=== PATIENT | male | born 1945 | race African-American/Black ===

== ENCOUNTER 2016-06-08 07:00 | Inpatient (IN) | payer OTHER, BC ==
--- NOTE | 2016-06-08 07:28 | PDOC ---
History of Present Illness - General Stated Complaint: VOMITING BLOOD History Source: Patient, Family - History of Present Illness Timing/Duration: reports: other (6 hrs or greater) Associated Symptoms: reports: nausea/vomiting. denies: confusion, fever/chills , loss of consciousness, numbness in legs/feet, ringing in ears, slurred speech , tingling in legs/feet, trouble walking, vision changes, weakness Past History - Past Medical History Allergies/Adverse Reactions: Allergies Allergy/AdvReac Type Severity Reaction Status Date / Time ramipril Allergy Severe Swelling Verified 06/08/16 07:30 Home Medications: Ambulatory Orders Amlodipine Besylate [Norvasc -] 10 mg PO DAILY 03/29/14 Calcium Acetate [Phoslo] 667 mg PO DAILY 03/29/14 Doxazosin Mesylate [Cardura -] 2 mg PO DAILY 03/29/14 Metoprolol Tartrate [Lopressor -] 50 mg PO BID 03/29/14 Anemia: No Asthma: No Cancer: No Cardiac Disorders: No CVA: No COPD: No CHF: No Dementia: No Diabetes: No Dialysis: Yes (mwf) GI Disorders: No Disorders: No HTN: Yes Hypercholesterolemia: Yes Liver Disease: No Suicide Attempt (Hx): No Seizures: No Thyroid Disease: No - Surgical History Abdominal Surgery: No Appendectomy: No Cardiac Surgery: No Cholecystectomy: No Lung Surgery: No Neurologic Surgery: No Orthopedic Surgery: No - Immunization History Immunization Up to Date: Yes - Psycho/Social/Smoking Cessation Hx Anxiety: No Suicidal Ideation: No Smoking History: Never smoked Have you smoked in the past 12 months: No If you are a former smoker, when did you quit?: 50YRS AGO Hx Alcohol Use: No Drug/Substance Use Hx: No Substance Use Type: None Review of Systems - Review of Systems Constitutional: No: Chills, Fever HEENTM: No: Blurred Vision Respiratory: No: Cough, Shortness of Breath Cardiac (ROS): No: Chest Pain, Palpitations Neurological: Yes: Dizziness. No: Headache, Numbness, Tingling, Weakness *Physical Exam - Physical Exam General Appearance: Yes: Appropriately Dressed. No: Apparent Distress HEENT: positive: Normal Voice, Other (no obvious facial droop, facial movement symmetric). negative: Scleral Icterus (R), Scleral Icterus (L) Neck: positive: Supple Respiratory/Chest: positive: Lungs Clear, Normal Breath Sounds. negative: Respiratory Distress Cardiovascular: positive: Regular Rate, S1, S2 Gastrointestinal/Abdominal: positive: Soft. negative: Tender Musculoskeletal: negative: CVA Tenderness Extremity: positive: Normal Inspection Integumentary: positive: Dry, Warm Neurologic: positive: Fully Oriented, Alert, Normal Mood/Affect, Motor Strength 5/5, Finger to Nose (no nystagmus, Gordon intact, no drift, no ataxia). negative : Facial Droop, Sensory Deficit NIH Stroke Scale - Last Known Well Date/Time & Onset Date Last Known Well: 06/07/16 (last known well 9pm last night) Time Last Known Well: 09:00 - Initial Evaluation Level of consciousness: Alert Ask patient the month and their age: Answers both correctly Ask patient to open & close eyes; make fist and let go: Obeys both correctly Best gaze (horizontal eye movement): Normal Visual field testing: No visual field loss Facial paresis (Show teeth/raise eyebrows/close eyes tight): Normal symmetrical movement Motor Function: Left Arm: Normal Motor Function: Right Arm: Normal (extends arm 90 (or 45) degrees for 10 seconds without drift Motor Function: Left Leg: Normal (extends leg 30 degrees for 5 seconds without drift) Motor Function: Right Leg: Normal (extends leg 30 degrees for 5 seconds without drift) Limb Ataxia: No ataxia Sensory(Use pinprick test arms,legs,trunk,face/side to side): Normal Best language (Describe picture, name items, read sentences): No Aphasia Dysarthria (read several words): Normal articulation Extinction and Inattention: No abnormality - Total Score NIH Stroke Scale Score: 0 Critical Care Time/MDM Note - Medical Decision Making Note: 06/08/16 07:10 70-year-old male, history of hypertension, end-stage renal disease on hemodialysis via left upper extremity fistula Sunday, Wednesdays and Fridays, last dialyzed yesterday, CVA with no residual deficits, brought in by family for sudden onset vertigo with nausea and vomiting. Patient states he was in his usual state of health when he went to bed about 9-10 pm last night, but that at 2 AM woke up feeling unwell and had several episodes of vomiting with possible blood streaks and felt the room spinning. States symptoms similar to his previous stroke. also reports that patient's mouth looks like it now "twisted to the right", which is not his baseline. Patient denies headache, visual changes, focal weakness, numbness or tingling. No altered mental status or slurred speech as per family. Pt not on any blood thinners See R/o CVA Sudden onset vertigo w/ ?facial droop this am Outside TPA window, last known normal >10 hrs ago Not on blood thinners No focal deficits on exam and no obvious facial droop on my exam Stroke protocol initiated-labs/CT/neuro c/s pending -anticipate admission 06/08/16 07:20 Case d/w Dr Mckay, if CT neg, administer asa and admit. States no need for stat MRI given no change in management. Will continue to follow 06/08/16 07:25 CT read as neg per radiology. Pt admitted to Stroke to Dr Long. Pt given zofran for active vomiting in ED and states he feels significantly better and "like myself" per pt. Discharge Disposition - Diagnosis Vertigo - Discharge Dispostion Condition at time of disposition: Fair Admit: Yes
[2016-06-08 07:31] VITALS: BMI 28.1
--- NOTE | 2016-06-08 07:35 | PDOC ---
*Physical Exam - Vital Signs Last Vital Signs Temp Pulse Resp BP Pulse Ox 97.3 F L 79 20 97/65 99 06/08/16 07:08 06/08/16 07:08 06/08/16 07:08 06/08/16 07:08 06/08/16 07:08 <aMnjinder Rodriguez - Last Filed: 06/08/16 12:00> - Vital Signs Last Vital Signs Temp Pulse Resp BP Pulse Ox 97.3 F L 79 20 97/65 99 06/08/16 07:08 06/08/16 07:08 06/08/16 07:08 06/08/16 07:08 06/08/16 07:08 - Physical Exam Comments: 06/08/16 07:34 MIDLEVEL NOTE Pt seen immediately on arrival Pt seen by Midlevel Provider under my direct supervision. Pt interviewed and examined. Ancillary studies reviewed. I agree with plan as outlined by Midlevel Provider. 70-year-old male, history of hypertension, end-stage renal disease on hemodialysis via left upper extremity fistula Sunday, Wednesdays and Fridays, last dialyzed yesterday, CVA with no residual deficits, brought in by family for sudden onset vertigo with nausea and vomiting. and mouth "twisted to R" at 2am Patient seen immediately on arrival History of old CVA w/o residual sx Stat CT scan done Patient is not a TPA candidate-patient awakened with the symptoms-time of onset unknown Case discussed with neurology MRI ordered NIH stroke scale 0 at this time 06/08/16 07:57 EKG Normal sinus rhythm with first degree AV block Left axis deviation QRS duration 118 ms QTC prolongation with a QTC of 505 There are lateral T-wave inversions in 1, L, V5, and V6 Other nonspecific ST-T waves are noted When compared to the EKG of 03/29/14 Today's EKG is similar to the prior EKG Of note, on today's EKG the T waves are upright, and on the old EKG the T waves are inverted in 203 and F The changes in 1 and L V5 and V6 were also present on the prior EKG and today's EKG 06/08/16 08:50 CT scan head No evidence of acute intracranial hemorrhage, edema, midline shift, mass effect , or skull fracture No CT evidence of acute territorial infarction Moderately severe supratentorial coalescent periventricular centrum semiovale chronic white matter microangiopathic ischemic changes and gliosis Chest x-ray-NAD Labwork reviewed Laboratory Results - last 24 hr 06/08/16 06/08/16 06/08/16 07:28 07:30 07:30 WBC 9.6 D RBC 3.60 L D Hgb 11.9 D Hct 36.4 D MCV 101.1 H MCHC 32.7 RDW 14.1 D Plt Count 172 MPV 8.5 Neutrophils % 82.5 D Lymphocytes % 7.8 L D Monocytes % 8.0 Eosinophils % 1.1 D Basophils % 0.6 INR 1.08 Sodium Potassium Chloride Carbon Dioxide Anion Gap BUN Creat Clearance w eGFR POC Glucometer 142.50325 Random Glucose Calcium Total Bilirubin AST ALT Alkaline Phosphatase Creatine Kinase CK-MB (CK-2) Rel Index Troponin I Total Protein Albumin Triglycerides Cholesterol Total LDL Cholesterol HDL Cholesterol Blood Type Antibody Screen 06/08/16 06/08/16 06/08/16 07:30 07:30 07:30 WBC RBC Hgb Hct MCV MCHC RDW Plt Count MPV Neutrophils % Lymphocytes % Monocytes % Eosinophils % Basophils % INR Sodium 141 Potassium 3.4 L Chloride 105 Carbon Dioxide 23 Anion Gap 13 BUN 37 H Creat Clearance w eGFR 4.45 POC Glucometer Random Glucose 136 H Calcium 7.3 L Total Bilirubin 0.3 AST 30 D ALT 19 D Alkaline Phosphatase 61 Creatine Kinase 421 H D CK-MB (CK-2) Rel Index Cancelled Troponin I 0.02 Total Protein 8.0 D Albumin 4.2 D Triglycerides 93 D Cholesterol 199 Total LDL Cholesterol 135 H D HDL Cholesterol 44 Blood Type AB POSITIVE Antibody Screen Negative 06/08/16 08:53 case d/w hospitalist - will admit Neurology at bedside For MRI <Autumn Moreno - Last Filed: 06/09/16 15:58> ED Treatment Course - LABORATORY CBC & Chemistry Diagram: 06/08/16 07:30 06/08/16 07:30 - ADDITIONAL ORDERS Additional order review: Laboratory Results 06/08/16 06/08/16 06/08/16 07:30 07:30 07:30 INR Sodium 141 Potassium 3.4 L Chloride 105 Carbon Dioxide 23 Anion Gap 13 BUN 37 H Creatinine 11.5 H* D Creat Clearance w eGFR 4.41 POC Glucometer Random Glucose 136 H Calcium 7.3 L Total Bilirubin 0.3 AST 30 D ALT 19 D Alkaline Phosphatase 61 Creatine Kinase 421 H D Creatine Kinase Index 0.6 CK-MB (CK-2) 2.506 CK-MB (CK-2) Rel Index Cancelled Troponin I 0.02 Total Protein 8.0 D Albumin 4.2 D Triglycerides 93 D Cholesterol 199 Total LDL Cholesterol 135 H D HDL Cholesterol 44 Blood Type AB POSITIVE Antibody Screen Negative 06/08/16 06/08/16 07:30 07:28 INR 1.08 Sodium Potassium Chloride Carbon Dioxide Anion Gap BUN Creatinine Creat Clearance w eGFR POC Glucometer 142.97570 Random Glucose Calcium Total Bilirubin AST ALT Alkaline Phosphatase Creatine Kinase Creatine Kinase Index CK-MB (CK-2) CK-MB (CK-2) Rel Index Troponin I Total Protein Albumin Triglycerides Cholesterol Total LDL Cholesterol HDL Cholesterol Blood Type Antibody Screen 06/08/16 06/08/16 07:30 07:28 RBC 3.60 L D MCV 101.1 H MCHC 32.7 RDW 14.1 D MPV 8.5 Neutrophils % 82.5 D Lymphocytes % 7.8 L D Monocytes % 8.0 Eosinophils % 1.1 D Basophils % 0.6 POC Glucometer 142.51247 - Medications Given in the ED: ED Medications Discontinued Medications Generic Name Dose Route Start Last Admin Trade Name Freq PRN Reason Stop Dose Admin Aspirin 324 mg 06/08/16 07:36 06/08/16 07:52 Asa - PO 06/08/16 07:37 324 mg ONCE ONE Administration Meclizine HCl 25 mg 06/08/16 07:52 06/08/16 08:26 Antivert - PO 06/08/16 07:53 25 mg ONCE ONE Administration Ondansetron HCl 4 mg 06/08/16 07:52 06/08/16 07:57 Zofran Injection IVPUSH 06/08/16 07:53 4 mg ONCE ONE Administration <Manjinder Rodriguez - Last Filed: 06/08/16 12:00> - LABORATORY CBC & Chemistry Diagram: 06/08/16 07:30 06/08/16 07:30 <Autumn Moreno - Last Filed: 06/09/16 15:58> *DC/Admit/Observation/Transfer <Manjinder Rodriguez - Last Filed: 06/08/16 12:00> <Autumn Moreno - Last Filed: 06/09/16 15:58> Diagnosis at time of Disposition: Vertigo - Discharge Dispostion Condition at time of disposition: Improved - Prescriptions
[2016-06-08] MEDS ORDERED: ASPIRIN 81 MG CHEWABLE TABLETS PO ONE (07:36)
[2016-06-08] MEDS ORDERED: ASPIRIN 325 MG TABLET ONE (07:46)
[2016-06-08] MEDS ORDERED: MECLIZINE HCL 25 MG TABLET (FP) PO ONE (07:52)
[2016-06-08] MEDS ORDERED: ONDANSETRON 4 MG/2 ML VIAL IVPUSH ONE (07:52)
[2016-06-08] MEDS: SODIUM CHLORIDE 1,000 ML IV SCH (07:52)
[2016-06-08] MEDS ORDERED: ONDANSETRON 4 MG/2 ML VIAL ONE (07:53)
[2016-06-08 07:54] LABS: BASOPHIL 0.6 % (0-2.0); EOSINOPHIL 1.1 % (0-4.5); MCH 33.1 pg (25.7-33.7); MCHC 32.7 g/dl (32.0-35.9); MEAN CELL VOLUME 101.1 fl (80-96); MEAN PLT VOLUME 8.5 fl (7.5-11.1); NEUTROPHILS 82.5 % (42.8-82.8); PLATELET COUNT 172 K/MM3 (134-434); RDW 14.1 % (11.9-15.9); WHITE BLOOD COUNT 9.6 K/mm3 (4.0-10.0)
[2016-06-08 08:00] LABS: INR 1.08 (0.82-1.09); PROTHROMBIN TIME (PATIENT) 11.9 SEC (9.98-11.88)
[2016-06-08 08:21] LABS: ALBUMIN 4.2 g/dl (3.4-5.0); BILIRUBIN,TOTAL 0.3 mg/dL (0.2-1.0); CALCIUM 7.3 mg/dL (8.5-10.1)
[2016-06-08] MEDS ORDERED: MECLIZINE HCL 25 MG TABLET (FP) ONE (08:26)
[2016-06-08 08:27] LABS: TROPONIN I 0.02 ng/ml (0.00-0.05)
[2016-06-08 09:43] LABS: COCKROFT - GAULT 6.48; CREATININE 11.5 mg/dL (0.7-1.3)
[2016-06-08] MEDS ORDERED: PROMETHAZINE HCL 25 MG/1 ML VIAL IM PRN (09:59)
[2016-06-08] MEDS: PANTOPRAZOLE SODIUM 100 ML IVPB SCH (10:37)
[2016-06-08] MEDS ORDERED: PANTOPRAZOLE SODIUM 100 ML IVPB ONE (10:38)
--- NOTE | 2016-06-08 13:13 | CONSULT ---
Consult - text type - Consultation Consultation Note: Neurology History of Present Illness 70-year-old male, history of hypertension, end-stage renal disease on hemodialysis via left upper extremity fistula Sunday, Wednesdays and Fridays, last dialyzed yesterday, CVA with no residual deficits, brought in by family for sudden onset vertigo with nausea and vomiting. Patient states he was in his usual state of health when he went to bed about 9-10 pm last night, but that at 2 AM woke up feeling unwell and had several episodes of vomiting with possible blood streaks and felt the room spinning. States symptoms similar to his previous stroke. Juan Manuel yan was called but patient out of TPA window. CT head without acute changes. Spoke with PA and agreed for admission and CVA workup. Past History - Past Medical History Allergies/Adverse Reactions: Allergies Allergy/AdvReac Type Severity Reaction Status Date / Time ramipril Allergy Severe Swelling Verified 06/08/16 07:30 Home Medications: Ambulatory Orders Amlodipine Besylate [Norvasc -] 10 mg PO DAILY 03/29/14 Calcium Acetate [Phoslo] 667 mg PO DAILY 03/29/14 Doxazosin Mesylate [Cardura -] 2 mg PO DAILY 03/29/14 Metoprolol Tartrate [Lopressor -] 50 mg PO BID 03/29/14 Anemia: No Asthma: No Cancer: No Cardiac Disorders: No CVA: No COPD: No CHF: No Dementia: No Diabetes: No Dialysis: Yes (mwf) GI Disorders: No Disorders: No HTN: Yes Hypercholesterolemia: Yes Liver Disease: No Suicide Attempt (Hx): No Seizures: No Thyroid Disease: No - Surgical History Abdominal Surgery: No Appendectomy: No Cardiac Surgery: No Cholecystectomy: No Lung Surgery: No Neurologic Surgery: No Orthopedic Surgery: No - Immunization History Immunization Up to Date: Yes - Psycho/Social/Smoking Cessation Hx Anxiety: No Suicidal Ideation: No Smoking History: Never smoked Have you smoked in the past 12 months: No If you are a former smoker, when did you quit?: 50YRS AGO Hx Alcohol Use: No Drug/Substance Use Hx: No Substance Use Type: None Review of Systems - Review of Systems Constitutional: No: Chills, Fever HEENTM: No: Blurred Vision Respiratory: No: Cough, Shortness of Breath Cardiac (ROS): No: Chest Pain, Palpitations Neurological: Yes: Dizziness. No: Headache, Numbness, Tingling, Weakness *Physical Exam - Physical Exam Vital Signs Temperature 97.3 F L 06/08/16 07:08 Pulse Rate 79 06/08/16 07:08 Respiratory Rate 20 06/08/16 07:08 Blood Pressure 97/65 06/08/16 07:08 O2 Sat by Pulse Oximetry (%) 99 06/08/16 07:08 General Appearance: Yes: Appropriately Dressed. No: Apparent Distress HEENT: positive: Normal Voice, Other (no obvious facial droop, facial movement symmetric). negative: Scleral Icterus (R), Scleral Icterus (L) Neck: positive: Supple Respiratory/Chest: positive: Lungs Clear, Normal Breath Sounds. negative: Respiratory Distress Cardiovascular: positive: Regular Rate, S1, S2 Gastrointestinal/Abdominal: positive: Soft. negative: Tender Musculoskeletal: negative: CVA Tenderness Extremity: positive: Normal Inspection Integumentary: positive: Dry, Warm Neurologic: positive: Fully Oriented, Alert, Normal Mood/Affect, Normal speech, no aphasia, ?facial droop, Strength intact 5/5, Finger to Nose (no nystagmus, Gordon intact, no drift, no ataxia). Sensory normal CBCD WBC 9.6 K/mm3 (4.0-10.0) D 06/08/16 07:30 RBC 3.60 M/mm3 (4.00-5.60) L D 06/08/16 07:30 Hgb 11.9 GM/dL (11.7-16.9) D 06/08/16 07:30 Hct 36.4 % (35.4-49) D 06/08/16 07:30 MCV 101.1 fl (80-96) H 06/08/16 07:30 MCHC 32.7 g/dl (32.0-35.9) 06/08/16 07:30 RDW 14.1 % (11.9-15.9) D 06/08/16 07:30 Plt Count 172 K/MM3 (134-434) 06/08/16 07:30 MPV 8.5 fl (7.5-11.1) 06/08/16 07:30 CMP Sodium 141 mmol/L (136-145) 06/08/16 07:30 Potassium 3.4 mmol/L (3.5-5.1) L 06/08/16 07:30 Chloride 105 mmol/L (98-107) 06/08/16 07:30 Carbon Dioxide 23 mmol/L (21-32) 06/08/16 07:30 Anion Gap 13 (8-16) 06/08/16 07:30 BUN 37 mg/dL (7-18) H 06/08/16 07:30 Creatinine 11.5 mg/dL (0.7-1.3) H* D 06/08/16 07:30 Creat Clearance w eGFR 4.41 (>60) 06/08/16 07:30 Calcium 7.3 mg/dL (8.5-10.1) L 06/08/16 07:30 Total Bilirubin 0.3 mg/dL (0.2-1.0) 06/08/16 07:30 AST 30 U/L (15-37) D 06/08/16 07:30 ALT 19 U/L (12-78) D 06/08/16 07:30 Alkaline Phosphatase 61 U/L (45-117) 06/08/16 07:30 Total Protein 8.0 g/dl (6.4-8.2) D 06/08/16 07:30 Albumin 4.2 g/dl (3.4-5.0) D 06/08/16 07:30 Plan: 70-year-old male, history of hypertension, end-stage renal disease on hemodialysis via left upper extremity fistula Sunday, Wednesdays and Fridays, last dialyzed yesterday, CVA with no residual deficits, brought in by family for sudden onset vertigo with nausea and vomiting. Patient states he was in his usual state of health when he went to bed about 9-10 pm last night, but that at 2 AM woke up feeling unwell and had several episodes of vomiting with possible blood streaks and felt the room spinning. States symptoms similar to his previous stroke. Code yuriy was called but patient out of TPA window. CT head without acute changes. Spoke with PA and agreed for admission and CVA workup. May also be just peripheral vertigo episode. Lipid profile MRI brain CD Echo Antiplatelet therapy (if no bleeding occuring) PT, vestibular therapy Fall precaution Meclezine as needed Continue HD as per renal BP control, can allow up to 160/90 for now DVT ppx
--- NOTE | 2016-06-08 13:25 | EKG ---
Test Reason : Blood Pressure : / mmHG Vent. Rate : 080 BPM Atrial Rate : 080 BPM P-R Int : 222 ms QRS Dur : 118 ms QT Int : 438 ms P-R-T Axes : 029 -45 094 degrees QTc Int : 505 ms SINUS RHYTHM WITH 1ST DEGREE A-V BLOCK LEFT ANTERIOR FASCICULAR BLOCK LEFT VENTRICULAR HYPERTROPHY WITH QRS WIDENING T WAVE ABNORMALITY, CONSIDER LATERAL ISCHEMIA PROLONGED QT ABNORMAL ECG WHEN COMPARED WITH ECG OF 29-MAR-2014 16:01, LEFT ANTERIOR FASCICULAR BLOCK IS NOW PRESENT NONSPECIFIC T WAVE ABNORMALITY NO LONGER EVIDENT IN INFERIOR LEADS T WAVE INVERSION LESS EVIDENT IN ANTEROLATERAL LEADS Confirmed by JORDIN ESCOBAR, THEODORA ([id number]) on 06/08/2016 1:25:24 PM Referred By: Confirmed By:THEODORA BRENNER MD
--- NOTE | 2016-06-08 13:45 | CONSULT ---
Consult - text type - Consultation Consultation Note: Renal Consult for ESRD on HD 70 year old Gentleman with PMhx of ESRD on HD x 17 years, CAD, CVA presented with N/V and facial droop and admitted for r/o CVA. seen and examined at the bedside Medical management as per Neurology CT w/o signs of acute infarct MRI pending for dialysis tomorrow. Full consult to follow Gerard Trejo DO
[2016-06-08 13:55] LABS: PHOSPHOROUS 3.9 mg/dL (2.5-4.9)
--- NOTE | 2016-06-08 15:43 | CONSULT ---
Admitting History and Physical - Primary Care Physician PCP: Ze Long - Admission History of Present Illness: Per EMR: "History of Present Illness 70-year-old male, history of hypertension, end-stage renal disease on hemodialysis via left upper extremity fistula Sunday, Wednesdays and Fridays, last dialyzed yesterday, CVA with no residual deficits, brought in by family for sudden onset vertigo with nausea and vomiting. Patient states he was in his usual state of health when he went to bed about 9-10 pm last night, but that at 2 AM woke up feeling unwell and had several episodes of vomiting with possible blood streaks and felt the room spinning. States symptoms similar to his previous stroke. Code yuriy was called but patient out of TPA window" History Source: Patient, Medical Record Limitations to Obtaining History: No Limitations - Past Medical History Cardiovascular: Yes: HTN, Hyperlipdemia Renal/: Yes: Renal Failure, Hemodialysis Heme/Onc: Yes: Anemia - Past Surgical History Past Surgical History: Yes: AV Fistula/Graft (to R wrist, and old graft to L arm ) - Smoking History Smoking history: Never smoked Have you smoked in the past 12 months: No If you are a former smoker, when did you quit?: 50YRS AGO - Alcohol/Substance Use Hx Alcohol Use: No - Social History ADL: Independent 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, 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 [place] History of Recent Travel: No History - Admission Reason For Visit: VERTIGO - Diagnostics X-ray: Report Reviewed CT Scan: Report Reviewed - General Mental Status: Alert and Oriented, Awake and Alert, Able to Follow Commands Attention: Intact Ability to Follow Directions: Excellent Head/Neck Control: WFL - Hearing Hearing: Normal Speech Evaluation - Communication Primary Language: SWEDISH Communication: Yes: Within Normal Limits Oral Expression Ability: Yes: No Impairment - Speech Production Able to Make Needs Known: Yes: WNL Intelligibility: Yes: WNL - Speech Characteristics Voice Loudness: Normal Voice Pitch: Yes: Normal Voice Phonatory-based Quality: Yes: Normal Speech Pattern: Normal Speech Clarity: < 100% Nasal Resonance: Normal Articulation: Yes: Precise Rate of Speech: Intact - Language/Auditory Comprehension Follows: Yes: Complex Commands - Language/Verbal Expression Able to Respond to Simple Queries: Yes: WNL Able to Communicate Wants and Needs: Yes: WNL Functional Communication Status: Yes: WNL Attention: Yes: Intact - Memory/Perception long term care pharmacist Memory: Yes: WNL Short Term Memory: Yes: WNL - Swallow Evaluation/Bedside Assessment Current Nutritional Intake: NPO Oral Secretions: Yes: WFL Dentition: Yes: Adequate Facial Symmetry at Rest: Symmetrical Facial Symmetry on Retraction: Symmetrical Facial Movement: Controlled Sensation: Normal Against Resistance Opening: Normal Against Resistance Closing: Normal Pucker Lips: Normal Smile: Normal Lingual Movement: Deviates Left Lingual Speed of Movement: Normal Lingual Movement Strgth Against Opposition: Normal Lingual Movement Characteristics: Normal Velopharyngeal Movement: Normal Laryngeal Elevation: WFL Laryngeal Movement: Able to Palpate Rate of Intake: WFL Bolus Size: WFL Labial Seal: WFL Chewing: WFL Oral Prep Time: WFL A-P Transit: WFL Pocketing: None Timing of Swallow: WFL Coughing/Throat Clear: No Change in Voice: No Recommendations - Speech Evaluation, Impression/Plan Impression: Tongue deviates to left upon protrusion. Lips are bright pink, reported baseline, with oral mucosa membrane more pinkish brown. Speech strong. Cognition/language/swallowing intact - Dysphagia Impressions/Plan Dysphagia Impressions: No Impairment *Silent aspiration: cannot be R/O at bedside - Recommendations Diet Consistency: Regular Medication Administration: Whole with water Liquids: Thin Liquids
--- NOTE | 2016-06-08 15:44 | HP ---
CHIEF COMPLAINT: dizziness; cough blood PCP: Dr. Ambrose HISTORY OF PRESENT ILLNESS: 70 year old male with a PMHx of CVA (no residual defects), ESRD on HD (MWF), HTN : presentot he emergency room due to feeling of dizziness. Patient states he was in bed arounf 2 am he started to feel the room spinning, he got up and walked to bathroom, he felt nauseated, started to cough and vomit, he noticed blood in sputum, amount unknown. noticed that he had right sided facial drooping and this was resolved upon admission. Patient also admits to he two episodes of watery diarrhea after the episodes. Patient denies LOC, headache, chest pain, shortness of breath, abdominal pain, leg swelling. HE does state that his symptoms/feeling were like when he had the previous stroke. In ER patient was normotensive, head CT negative for hemorrhagic stroke. Out of TPA window. ER course was notable for: (1)HEAD CT negative (2)ASA given (3) Recent Travel: no PAST MEDICAL HISTORY: HTN, CVA, ESRD PAST SURGICAL HISTORY: Social History: Smoking:no Alcohol:no Drugs: no Family History: Allergies ramipril Allergy (Severe, Verified 06/08/16 07:30) Swelling HOME MEDICATIONS: Home Medications Medication Instructions Recorded Amlodipine Besylate [Norvasc -] 10 mg PO DAILY 03/29/14 Calcium Acetate [Phoslo] 667 mg PO DAILY 03/29/14 Doxazosin Mesylate [Cardura -] 2 mg PO DAILY 03/29/14 Metoprolol Tartrate [Lopressor -] 50 mg PO BID 03/29/14 REVIEW OF SYSTEMS CONSTITUTIONAL: Absent: fever, chills, diaphoresis, generalized weakness, malaise, loss of appetite, weight change HEENT: Absent: rhinorrhea, nasal congestion, throat pain, throat swelling, difficulty swallowing, mouth swelling, ear pain, eye pain, visual changes CARDIOVASCULAR: Absent: chest pain, syncope, palpitations, irregular heart rate, lightheadedness , peripheral edema RESPIRATORY: Positive: cough, hemoptysis Absent: shortness of breath, dyspnea with exertion, orthopnea, wheezing, stridor , GASTROINTESTINAL: Positive: nausea, vomiting, diarrhea Absent: abdominal pain, abdominal distension, , constipation, melena, hematochezia GENITOURINARY: Absent: dysuria, frequency, urgency, hesitancy, hematuria, flank pain, genital pain MUSCULOSKELETAL: Absent: myalgia, arthralgia, joint swelling, back pain, neck pain SKIN: Absent: rash, itching, pallor HEMATOLOGIC/IMMUNOLOGIC: Absent: easy bleeding, easy bruising, lymphadenopathy, frequent infections ENDOCRINE: Absent: unexplained weight gain, unexplained weight loss, heat intolerance, cold intolerance NEUROLOGIC: POsitive:dizziness, unsteady gait, rigth facial droop Absent: headache, focal weakness or paresthesias, seizure, mental status changes , bladder or bowel incontinence PSYCHIATRIC: Absent: anxiety, depression, suicidal or homicidal ideation, hallucinations. PHYSICAL EXAMINATION Vital Signs - 24 hr 06/08/16 13:34 Pulse Rate [ 71 Apical] Respiratory 18 Rate Blood Pressure 149/90 [Arm] O2 Sat by Pulse 100 Oximetry (%) GENERAL: Awake, alert, and fully oriented, in no acute distress. HEAD: Normal with no signs of trauma. FACE: lip and tongue swelling EYES: Pupils equal, round and reactive to light, extraocular movements intact, sclera anicteric, conjunctiva clear. No lid lag. EARS, NOSE, THROAT: Ears normal, nares patent, oropharynx clear without exudates. Moist mucous membranes. NECK: Normal range of motion, supple without lymphadenopathy, JVD, or masses. LUNGS: Breath sounds equal, clear to auscultation bilaterally. No wheezes, and no crackles. No accessory muscle use. HEART: Regular rate and rhythm, normal S1 and S2 without murmur, rub or gallop. ABDOMEN: Soft, nontender, not distended, normoactive bowel sounds, no guarding, no rebound, no masses. No hepatomegaly or splenomegaly. MUSCULOSKELETAL: Normal range of motion at all joints. No bony deformities or tenderness. No CVA tenderness. UPPER EXTREMITIES: 2+ pulses, warm, well-perfused. No cyanosis. No clubbing. No peripheral edema. Right forearm fistula LOWER EXTREMITIES: 2+ pulses, warm, well-perfused. No calf tenderness. No peripheral edema. NEUROLOGICAL: Cranial nerves II-XII intact. Normal speech. Normal gait. Tongue deviation to the right; sensation in tact; full motor strength; all extremities 5/5 PSYCHIATRIC: Cooperative. Good eye contact. Appropriate mood and affect. SKIN: Warm, dry, normal turgor, no rashes or lesions noted, normal capillary refill. Laboratory Results - last 24 hr 06/08/16 13:35 Phosphorus Cancelled Magnesium Cancelled ASSESSMENT/PLAN: 70 year old male with a PMHx of CVA; with no residual deficits, ESRD in HD, HTN , presents with right tongue deviation and facial droop s/p episode of nasuea and vomiting, and vertigo at home; admitted for TIA. Head CT negative; out of tpa window. #rule out CVA vs TIA vs vertigo -asa, lipid profile, tsh, -stroke head CT negative for hemorrhagic stroke , mass, epidural/subdural hematoma; -MRA/MRI pending -echo , carotid doppler -swallow eval -physical therapy -resume po meds once cleared -risk precautions -bb, asa, statin #vertigo -meclizine prn -phenergan for n/v/; due to prolonged qt #hemoptysis most likely due retching during vomiting -hemoglobin stable -no other new events #ESRD: -HD MWF -phoslo -Renal consulted #hyperlipidemia: -atorvastatin 40mg po qd #hypertension: -metoprolol 50mg bid -norvasc 10mg po daily FEN: Fluids: na Electrolytes: wnl Diet; cardiac after pass swallow eval VTE prophylaxis; scs; asa; consider imaging negative Disposition: preventative stroke precautions Problem List - Problem (1) ESRD on hemodialysis Code(s): N18.6 - END STAGE RENAL DISEASE Z99.2 - DEPENDENCE ON RENAL DIALYSIS (2) Vertigo Code(s): R42 - DIZZINESS AND GIDDINESS (3) Dialysis AV fistula malfunction Code(s): T82.590A - [facility] COMPL OF SURGICALLY CREATED ARTERIOVENOUS FISTULA, INIT (4) HTN (hypertension) Code(s): I10 - ESSENTIAL (PRIMARY) HYPERTENSION (5) TIA (transient ischemic attack) Code(s): G45.9 - TRANSIENT CEREBRAL ISCHEMIC ATTACK, UNSPECIFIED Visit type - Emergency Visit Emergency Visit: Yes ED Registration Date: 06/08/16 Care time: The patient presented to the Emergency Department on the above date and was hospitalized for further evaluation of their emergent condition. - New Patient This patient is new to me today: Yes Date on this admission: 06/08/16 - Critical Care Critical Care patient: No
--- NOTE | 2016-06-08 17:37 | PN ---
Teaching Attending Note Name of Resident: Flakita Gann ATTENDING PHYSICIAN STATEMENT I saw and evaluated the patient. I reviewed the resident's note and discussed the case with the resident. I agree with the resident's findings and plan as documented. SUBJECTIVE: OBJECTIVE: Vital Signs Period Temp Pulse Resp BP Sys/Mckinley Pulse Ox Last 24 Hr 97.2 F-97.3 F 71-79 18-20 97-156/65-101 99-100 ASSESSMENT AND PLAN:
[2016-06-08] MEDS ORDERED: METOCLOPRAMIDE HCL INJECTION 10 MG/2 ML VIAL IVPUSH PRN (17:45)
--- NOTE | 2016-06-09 07:57 | PN ---
Progress Note (short form) - Note Progress Note: Dr Ramos covering for Dr Lynn HPI: 70-year-old male, history of hypertension, end-stage renal disease on hemodialysis via left upper extremity fistula Sunday, Wednesdays and Fridays, last dialyzed yesterday, CVA with no residual deficits, brought in by family for sudden onset vertigo with nausea and vomiting on 06/08. Patient states he was in his usual state of health when he went to bed about 9-10 pm last night, but that at 2 AM woke up feeling unwell and had several episodes of vomiting with possible blood streaks and felt the room spinning. States symptoms similar to his previous stroke. Code yan was called but patient out of TPA window. CT HD (-) FU : this AM, denies any dizziness, headaches or slurred speech feeling better reviewed MRI's- no acute infarct Past History As above - Past Medical History Allergies/Adverse Reactions: Allergies Allergy/AdvReac Type Severity Reaction Status Date / Time ramipril Allergy Severe Swelling Verified 06/08/16 07:30 Home Medications: Ambulatory Orders Amlodipine Besylate [Norvasc -] 10 mg PO DAILY 03/29/14 Calcium Acetate [Phoslo] 667 mg PO DAILY 03/29/14 Doxazosin Mesylate [Cardura -] 2 mg PO DAILY 03/29/14 Metoprolol Tartrate [Lopressor -] 50 mg PO BID 03/29/14 Review of Systems - Review of Systems Constitutional: No: Chills, Fever HEENTM: No: Blurred Vision Respiratory: No: Cough, Shortness of Breath Cardiac (ROS): No: Chest Pain, Palpitations Neurological: Yes: Dizziness. No: Headache, Numbness, Tingling, Weakness *Physical Exam - Physical Exam Vital Signs Period Temp Pulse Resp BP Sys/Mckinley Pulse Ox Last 24 Hr 97.2 F-98.2 F 65-78 18-18 140-156/87-101 100-100 Vital Signs General Appearance: Yes: Appropriately Dressed. No: Apparent Distress HEENT: positive: Normal Voice, Other (no obvious facial droop, facial movement symmetric). negative: Scleral Icterus (R), Scleral Icterus (L) Neck: positive: Supple Respiratory/Chest: positive: Lungs Clear, Normal Breath Sounds. negative: Respiratory Distress Cardiovascular: positive: Regular Rate, S1, S2 Gastrointestinal/Abdominal: positive: Soft. negative: Tender Musculoskeletal: negative: CVA Tenderness Extremity: positive: Normal Inspection Integumentary: positive: Dry, Warm Neurologic: positive: Fully Oriented, Alert, Normal Mood/Affect, Normal speech, no aphasia, ?facial droop, Strength intact 5/5, Finger to Nose (no nystagmus, Gordon intact, no drift, no ataxia). Sensory normal CBCD WBC 9.6 K/mm3 (4.0-10.0) D 06/08/16 07:30 RBC 3.60 M/mm3 (4.00-5.60) L D 06/08/16 07:30 Hgb 11.9 GM/dL (11.7-16.9) D 06/08/16 07:30 Hct 36.4 % (35.4-49) D 06/08/16 07:30 MCV 101.1 fl (80-96) H 06/08/16 07:30 MCHC 32.7 g/dl (32.0-35.9) 06/08/16 07:30 RDW 14.1 % (11.9-15.9) D 06/08/16 07:30 Plt Count 172 K/MM3 (134-434) 06/08/16 07:30 MPV 8.5 fl (7.5-11.1) 06/08/16 07:30 CMP Sodium 141 mmol/L (136-145) 06/08/16 07:30 Potassium 3.4 mmol/L (3.5-5.1) L 06/08/16 07:30 Chloride 105 mmol/L (98-107) 06/08/16 07:30 Carbon Dioxide 23 mmol/L (21-32) 06/08/16 07:30 Anion Gap 13 (8-16) 06/08/16 07:30 BUN 37 mg/dL (7-18) H 06/08/16 07:30 Creatinine 11.5 mg/dL (0.7-1.3) H* D 06/08/16 07:30 Creat Clearance w eGFR 4.41 (>60) 06/08/16 07:30 Calcium 7.3 mg/dL (8.5-10.1) L 06/08/16 07:30 Total Bilirubin 0.3 mg/dL (0.2-1.0) 06/08/16 07:30 AST 30 U/L (15-37) D 06/08/16 07:30 ALT 19 U/L (12-78) D 06/08/16 07:30 Alkaline Phosphatase 61 U/L (45-117) 06/08/16 07:30 Total Protein 8.0 g/dl (6.4-8.2) D 06/08/16 07:30 Albumin 4.2 g/dl (3.4-5.0) D 06/08/16 07:30 Plan: 70-year-old male, history of hypertension, ESRD on hemodialysis via left upper extremity fistula M/W/F last dialyzed 06/07, CVA with no residual deficits, brought in by family for sudden onset vertigo/ nausea and vomiting. admitted for stroke /TIA WHITMORE : MRI 's (-) for acute infarct or carotid stenosis. 2 mm cavernous carotid aneurysm -incidental dolichectasia of carotids on MRA Doppler (-) likley a bout of peripheral vertigo ASA/statin for vascular protection. optimize BP's , fu cardiology echo, holter can DC iV fluids, neurolgically cleared can be fu as oupt with Dr oWody Ramos [phone]
[2016-06-09] MEDS ORDERED: METOPROLOL TARTRATE 50 MG TABLET (FP) PO SCH (10:00)
[2016-06-09] MEDS ORDERED: ASPIRIN COATED 81 MG TABLET.EC PO SCH ×2 (10:00)
[2016-06-09] MEDS ORDERED: amLODIPine BESYLATE 10 MG TABLET (FP) PO SCH (10:00)
[2016-06-09] MEDS ORDERED: CALCIUM ACETATE 667 MG CAPSULE (FP) PO SCH (10:00)
[2016-06-09] MEDS ORDERED: DOXAZOSIN MESYLATE 2 MG TABLET (FP) PO SCH (10:00)
--- NOTE | 2016-06-09 11:15 | PN ---
Progress Note, NEWS PHOTOGRAPHER - Note Progress Note: Regular diet thin liquid ordered with good tolerance. Speech production,language , swallowing continue to be stable. No signs of dysphagia reported or observed. Selected Entries 06/08/16 06/08/16 06/08/16 07:08 15:33 18:00 Breakfast Supper Temperature 97.3 F L 97.2 F L 98.1 F 06/08/16 06/08/16 06/09/16 19:52 22:00 02:00 Breakfast Supper 75% Temperature 97.7 F 98.0 F 06/09/16 06/09/16 06:00 09:29 Breakfast 100% Supper Temperature 98.2 F No further f/u indicated.
[2016-06-09] MEDS: SODIUM CHLORIDE 1,000 ML IV SCH (11:53)
[2016-06-09] MEDS: PANTOPRAZOLE SODIUM 100 ML IVPB SCH (12:01)
[2016-06-09] MEDS: CALCIUM ACETATE 667 MG CAPSULE (FP) PO SCH ×2 (12:01→17:58)
[2016-06-09 14:08] VITALS: TEMP 98.1
--- NOTE | 2016-06-09 15:36 | PN ---
Progress Note (short form) - Note Progress Note: Renal Follow up for ESRD on HD Pt seen and examined during dialysis BP elevated 158/110, goal UF is 2.5L pt request to have only 3 hour of Tx no sob, chest pain, N/V/D Vital Signs Temperature 98.1 F 06/09/16 14:06 Pulse Rate 61 06/09/16 14:40 Respiratory Rate 18 06/09/16 14:40 Blood Pressure 150/97 06/09/16 14:40 O2 Sat by Pulse Oximetry (%) 99 06/09/16 09:00 Intake & Output 06/06/16 06/07/16 06/08/16 06/09/16 23:59 23:59 23:59 23:59 Intake Total 620 Balance 620 Weight 169 lb Gen: NAD, awake and alert CVS: RRR, No M/R Lungs: CTA Abd: soft NT/ND Ext: No edema, clubbing or cyanosis CBC, BMP 06/08/16 07:30 Current Medications Amlodipine Besylate (Norvasc -) 10 mg PO DAILY [facility] Aspirin (Ecotrin -) 81 mg PO DAILY STEVE Atorvastatin Calcium (Lipitor -) 40 mg PO HS STEVE Calcium Acetate (Phoslo -) 667 mg PO TIDCM [facility] Last Admin: 06/09/16 12:01 Dose: 667 mg Doxazosin Mesylate (Cardura -) 2 mg PO DAILY [facility] Pantoprazole Sodium (Protonix 40mg Ivpb (Pre-Docked)) 100 mls @ 200 mls/hr IVPB DAILY [facility] Last Admin: 06/09/16 12:01 Dose: 200 mls/hr Metoclopramide HCl (Reglan Injection -) 10 mg IVPUSH Q6H PRN PRN Reason: NAUSEA AND/OR VOMITING Metoprolol Tartrate (Lopressor -) 50 mg PO BID [facility] A/P 70 year old Gentleman with PMhx of ESRD on HD x 17 years, CAD, CVA presented with N/V and facial droop and admitted for r/o CVA. #TIA/CVA clinically improved no acute CVA on imaging for outpatient follow up with neurology continue ASA and stain #ESRD on HD Pt is tolerating dialysis well today UF goal ~2.5 L as tolerated to resume outpatient dialysis on Sunday Thank you Gerard Trejo DO
[2016-06-09 15:38] LABS: PHOSPHOROUS 3.6 mg/dL (2.5-4.9)
[2016-06-09 15:43] LABS: COCKROFT - GAULT 5.47
--- NOTE | 2016-06-09 16:05 | DS ---
Physical Exam: SUBJECTIVE: Patient seen and examined symptoms resolved. Denies dizziness, weakness , BONNER, n, v, cough, chest pain , sob. OBJECTIVE: Vital Signs Period Temp Pulse Resp BP Sys/Mckinley Pulse Ox Last 24 Hr 97.7 F-98.2 F 61-74 18-18 137-156/87-117 99-100 PHYSICAL EXAM GENERAL: The patient is awake, alert, and fully oriented, in no acute distress. HEAD: Normal with no signs of trauma. EYES: PERRL, extraocular movements intact, sclera anicteric, conjunctiva clear. ENT: Ears normal, nares patent, oropharynx clear without exudates, moist mucous membranes. Lip swelling; chronic NECK: Trachea midline, full range of motion, supple. LUNGS: Breath sounds equal, clear to auscultation bilaterally, no wheezes, no crackles, no accessory muscle use. HEART: Regular rate and rhythm, S1, S2 without murmur, rub or gallop. ABDOMEN: Soft, nontender, nondistended, normoactive bowel sounds, no guarding, no rebound, no hepatosplenomegaly, no masses. EXTREMITIES: 2+ pulses, warm, well-perfused, no edema. NEUROLOGICAL: Cranial nerves II through XII grossly intact. Normal speech, gait not observed. Motor and sensation of all extremities intact PSYCH: Normal mood, normal affect. SKIN: Warm, dry, normal turgor, no rashes or lesions noted. LABS Laboratory Results - last 24 hr 06/09/16 14:20 TSH 2.90 HOSPITAL COURSE: Date of Admission:06/08/16 Date of Discharge: 06/09/16 70 year old male with a PMHx of CVA; with no residual deficits, ESRD in HD, HTN , presents with right tongue deviation and facial droop s/p episode of nausea and vomiting, and vertigo at home; admitted to rule out CVA. Head CT negative. Brain MRI negative for acute stroke. Will need follow up imaging of neck vessels due to bilateral vestibular vessels not visible on carotid doppler. Patient sent home with script for appointment. Symptoms were most likely secondary to hypotension and vertigo. On admission patient blood pressure was 90s systolic and 50s diastolic. #dizziness secondary to hypotension and vertigo; CVA ruled out. -asa, lipid profile, tsh, -stroke head CT negative for hemorrhagic stroke , mass, epidural/subdural hematoma; -MRA/MRI showed thickening of bilateral common carotids; no significant stenosis -echo , carotid doppler -physical therapy -beta jonathan, asa, statin -evaluated by neurology, will follow up as outpatient #vertigo -meclizine prn #hemoptysis most likely due retching during vomiting -hemoglobin stable -no other new events #ESRD: -HD MWF -phoslo -Renal consulted #hyperlipidemia: -started on atorvastatin 40mg po qd #hypertension: -metoprolol was decreased from 50mg bid to 25mg bid -norvasc 10mg po daily Minutes to complete discharge: 35 Discharge Summary Reason For Visit: VERTIGO Current Active Problems Anemia in ESRD (end-stage renal disease) (Acute) Chest pain (Acute) ESRD on hemodialysis (Acute) Mitral valve vegetation (Acute) Renal osteodystrophy (Acute) TIA (transient ischemic attack) (Acute) Vertigo (Acute) Condition: Improved - Instructions Diet, Activity, Other Instructions: Mr. Clayton, you have been diagnoses with an episode of vertigo. You will be prescribed a medication as need for your symptoms, called meclizine, please take as directed. Your blood pressure was low on admission to the hospital, we are lowering your metoprolol, to 25mg twice a day. We have added cholesterol medication, Lipitor and aspirin to your medications as well. Please take as directed. All your imaging was negative for an acute stroke. We would like you to get one more imaging study as an outpatient, called a neck MRA. Please discuss this with your primary as well. Follow up with the neurologist with in one week, information provided. If you experience any worsening of symptoms, including chest pain, shortness of breath, weakness, please return to the emergency room. Referrals: Ana Ambrose MD [Primary Care Provider] - Brian Mckay MD [Staff Physician] - Disposition: HOME - Home Medications Comprehensive Discharge Medication List: Ambulatory Orders Amlodipine Besylate [Norvasc -] 10 mg PO DAILY 03/29/14 Calcium Acetate [Phoslo] 667 mg PO DAILY 03/29/14 Doxazosin Mesylate [Cardura -] 2 mg PO DAILY 03/29/14 Aspirin Coated [Ecotrin -] 81 mg PO DAILY #30 tab 06/09/16 Atorvastatin Ca [Lipitor] 40 mg PO HS #30 tablet 06/09/16 Meclizine HCl 12.5 mg PO BID PRN #30 tablet 06/09/16 Metoprolol Tartrate [Lopressor -] 25 mg PO BID #30 tablet 06/09/16 Miscellaneous Medical Supply [Outpatient Order] 1 each ASDIR #1 misc Problem List - Problems (1) ESRD on hemodialysis Code(s): N18.6 - END STAGE RENAL DISEASE Z99.2 - DEPENDENCE ON RENAL DIALYSIS (2) Vertigo Code(s): R42 - DIZZINESS AND GIDDINESS (3) Dialysis AV fistula malfunction Code(s): T82.590A - [facility] COMPL OF SURGICALLY CREATED ARTERIOVENOUS FISTULA, INIT (4) HTN (hypertension) Code(s): I10 - ESSENTIAL (PRIMARY) HYPERTENSION (5) TIA (transient ischemic attack) Code(s): G45.9 - TRANSIENT CEREBRAL ISCHEMIC ATTACK, UNSPECIFIED This patient is new to me today: No Emergency Visit: Yes ED Registration Date: 06/08/16 Care time: The patient presented to the Emergency Department on the above date and was hospitalized for further evaluation of their emergent condition. Critical Care patient: No - Discharge Referral Referred to [facility] Med P.[facility].: No
--- NOTE | 2016-06-09 16:13 | PN ---
Teaching Attending Note Name of Resident: Flakita Gann ATTENDING PHYSICIAN STATEMENT I saw and evaluated the patient. I reviewed the resident's note and discussed the case with the resident. I agree with the resident's findings and plan as documented. SUBJECTIVE: OBJECTIVE: Vital Signs Period Temp Pulse Resp BP Sys/Mckinley Pulse Ox Last 24 Hr 97.7 F-98.2 F 61-74 18-18 137-156/87-117 99-100 ASSESSMENT AND PLAN:
[2016-06-09 17:07] LABS: CALCIUM 6.7 mg/dL (8.5-10.1); CREATININE 13.6 mg/dL (0.7-1.3)
[2016-06-09 17:35] VITALS: BP 145/107; PULSE 60
--- NOTE | 2016-06-09 17:46 | PN ---
Progress Note (short form) - Note Progress Note: Vascular Surgery Pt seen and examined. Well known to vascular service. MRA reviewed. Inicidental finding of 2mm aneurysm of cavernous carotid. Medical management. No need for surgery Zach Rizvi dO
[2016-06-09] MEDS ORDERED: PT OWN MED DRAWER 7, Y5N ONE (17:52)
[2016-06-09] MEDS ORDERED: ATORVASTATIN CA 40 MG TABLET (FP) PO SCH (22:00)
[2016-06-13 06:06] LABS: HEP B SURFACE AB Non Reactive (.)
== END 2016-06-09 18:30 | disposition home or self-care (01) | DRG 314 ==
LOC: JER 07:00 → JERBED 08:28 → J4S 14:08
PROVIDERS: ADMIT Internal Medicine; ATTEND Internal Medicine
PROC: 5A1D60Z (ICD-10-PCS; principal; 2016-06-09)
DX: I95.9 Hypotension, unspecified (principal); N18.6 End stage renal disease; R04.2 Hemoptysis; I12.0 Hypertensive chronic kidney disease with stage 5 chronic kidney disease or end stage renal disease; Z99.2 Dependence on renal dialysis; E78.5 Hyperlipidemia, unspecified; D63.1 Anemia in chronic kidney disease; Z86.73 Personal history of transient ischemic attack (TIA), and cerebral infarction without residual deficits; N25.0 Renal osteodystrophy
CPT/HCPCS: 36415; 70450-TC; 70544-TC; 70547-TC; 70551-TC; 71010-TC; 80048; 80053; 82465; 82550; 82553; 83036; 83718; 83721; 83735; 84100; 84443; 84478; 84484; 85025; 85610; 86704; 86706; 86708; 86850; 86900; 86901; 87340; 93005; 93010; 93306-TC; 93880-TC; 99285-25

== ENCOUNTER 2017-01-07 08:56 | Emergency (ER) | payer OTHER, BC ==
[2017-01-07 09:08] VITALS: BP 118/94; PULSE 98; TEMP 98; BMI 25.9
--- NOTE | 2017-01-07 09:44 | PDOC ---
History of Present Illness - General Chief Complaint: Cold Symptoms Stated Complaint: COLD SYMPTOMS Time Seen by Provider: 01/07/17 09:12 History Source: Patient, Spouse Exam Limitations: No Limitations - History of Present Illness Initial Comments: 01/07/17 10:05 Patient came to emergency department for evaluation of persistent moist cough times one week. Denies fever, denies ear or throat pain, states phlegm is clear , no noted yellow or green phlegm. Is on renal dialysis for the past 18 years, and does not feel has any cardiac or fluid buildup related to his renal failure. Thinks is a cold and was hoping for some antitussives prescription Timing/Duration: reports: constant, changing over time Severity: reports: mild Associated Symptoms: reports: denies symptoms, cough, nasal congestion. denies : chest pain/soreness, facial pain, fever/chills, headache Past History - Travel Traveled outside of the country in the last 30 days: No Close contact w/someone who was outside of country & ill: No - Past Medical History Allergies/Adverse Reactions: Allergies Allergy/AdvReac Type Severity Reaction Status Date / Time ramipril Allergy Severe Swelling Verified 01/07/17 09:02 Home Medications: Ambulatory Orders Amlodipine Besylate [Norvasc -] 10 mg PO DAILY 03/29/14 Calcium Acetate [Phoslo] 667 mg PO DAILY 03/29/14 Doxazosin Mesylate [Cardura -] 2 mg PO DAILY 03/29/14 Aspirin Coated [Ecotrin -] 81 mg PO DAILY #30 tab 06/09/16 Atorvastatin Ca [Lipitor] 40 mg PO HS #30 tablet 06/09/16 Meclizine HCl 12.5 mg PO BID PRN #30 tablet 06/09/16 Metoprolol Tartrate [Lopressor -] 25 mg PO BID #30 tablet 06/09/16 Miscellaneous Medical Supply [Outpatient Order] 1 each ASDIR #1 misc Benzonatate [Tessalon Pearls -] 100 mg PO TID #21 capsule 01/07/17 Anemia: No Asthma: No Cancer: No Cardiac Disorders: No CVA: No COPD: No CHF: No Dementia: No Diabetes: No Dialysis: Yes (mwf) GI Disorders: Yes (AV FISTULA RIGHT ARM (M,W,F)) Disorders: No HTN: Yes Hypercholesterolemia: Yes Liver Disease: No Seizures: No Thyroid Disease: No - Surgical History Abdominal Surgery: No Appendectomy: No Cardiac Surgery: No Cholecystectomy: No Lung Surgery: No Neurologic Surgery: No Orthopedic Surgery: No - Immunization History Immunization Up to Date: Yes - Suicide/Smoking/Psychosocial Hx Smoking History: Never smoked Have you smoked in the past 12 months: No If you are a former smoker, when did you quit?: 50YRS AGO Information on smoking cessation initiated: No Hx Alcohol Use: No Drug/Substance Use Hx: No Substance Use Type: None Hx Substance Use Treatment: No Respiratory Specific PMHX - Complaint Specific PMHX Bronchitis: No Pneumonia: No Review of Systems - Review of Systems Able to Perform ROS?: Yes Is the patient limited Turkmen proficient: Yes Constitutional: Yes: Symptoms Reported, See HPI. No: Chills, Fever, Loss of Appetite, Malaise HEENTM: Yes: Symptoms Reported, See HPI, Nose Congestion. No: Throat Pain, Throat Swelling, Difficulty Swallowing Respiratory: Yes: Symptoms reported, See HPI, Cough (moinst nonproductive ) Cardiac (ROS): No: Symptoms Reported ABD/GI: No: Symptoms Reported Musculoskeletal: Yes: Symptoms Reported Integumentary: Yes: See HPI. No: Symptoms Reported Neurological: Yes: See HPI. No: Symptoms reported All Other Systems: Reviewed and Negative *Physical Exam - Vital Signs Last Vital Signs Temp Pulse Resp BP Pulse Ox 98.0 F 98 H 16 118/94 99 01/07/17 09:03 01/07/17 09:03 01/07/17 09:03 01/07/17 09:03 01/07/17 09:03 - Physical Exam General Appearance: Yes: Nourished, Appropriately Dressed. No: Apparent Distress HEENT: positive: KAYLAH, Normal ENT Inspection, TMs Normal, Pharynx Normal (no redness, swelling or exudate, some posterior sinus drainage noted that's clear/ white) Neck: positive: Tender, Supple. negative: Lymphadenopathy (R), Lymphadenopathy (L) Respiratory/Chest: positive: Lungs Clear (no wheezing, retractions), Normal Breath Sounds. negative: Wheezing Cardiovascular: positive: Regular Rhythm Gastrointestinal/Abdominal: positive: Normal Bowel Sounds, Soft. 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 We'll treat with Tessalon Perles and conservative measures *DC/Admit/Observation/Transfer Diagnosis at time of Disposition: Cough in adult - Discharge Dispostion Disposition: HOME Condition at time of disposition: Stable Admit: No - Referrals Referrals: Ana Ambrose MD [Primary Care Provider] - - Patient Instructions Additional Instructions: Rest, drink lots of fluids: Teas, water, soups, Pedialyte Saltwater gargles Steamy showers/seem to face break up mucus Avoid contact with others until fevers and cough resolved Lots of handwashing and good hygiene Continue [id number] medications for symptomatic relief Tylenol or Motrin for fever and pain Tessalon Perle as directed for cough. Followup with private physician in one to 2 days as needed Return to emergency department for worsened symptoms, fevers, dehydration - Post Discharge Activity Forms/Work/School Notes: Back to Work
== END 2017-01-07 10:34 | disposition home or self-care (01) ==
LOC: JERFT 08:56
DX: R05 Cough (principal); I12.0 Hypertensive chronic kidney disease with stage 5 chronic kidney disease or end stage renal disease; N18.6 End stage renal disease; N17.8 Other acute kidney failure; Z99.2 Dependence on renal dialysis; Z87.891 Personal history of nicotine dependence; E78.00 Pure hypercholesterolemia, unspecified
CPT/HCPCS: 71020-TC; 99281-25

== ENCOUNTER 2017-04-08 08:27 | Emergency (ER) | payer OTHER, BC ==
[2017-04-08 08:34] VITALS: TEMP 98.8; BMI 28.0
--- NOTE | 2017-04-08 08:51 | PDOC ---
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 Sputum is white, patient denies sob, chest pain,palpitation, abdominal pain, blood in the stools. Patient lives with family, fully ambulating. Got his dialysis on Sunday, due tomorrow. 04/08/17 10:17 Past History - Past Medical History Allergies/Adverse Reactions: Allergies Allergy/AdvReac Type Severity Reaction Status Date / Time ramipril Allergy Severe Swelling Verified 04/08/17 08:34 Home Medications: Ambulatory Orders Amlodipine Besylate [Norvasc -] 10 mg PO DAILY 03/29/14 Calcium Acetate [Phoslo] 667 mg PO DAILY 03/29/14 Doxazosin Mesylate [Cardura -] 2 mg PO DAILY 03/29/14 Aspirin Coated [Ecotrin -] 81 mg PO DAILY #30 tab 06/09/16 Loperamide HCl [Imodium -] 2 mg PO Q8H #21 capsule 04/08/17 Anemia: No Asthma: No Cancer: No Cardiac Disorders: No CVA: No COPD: No CHF: No Dementia: No Diabetes: No Dialysis: Yes (mwf) GI Disorders: Yes (AV FISTULA RIGHT ARM (M,W,F)) Disorders: No HTN: Yes Hypercholesterolemia: Yes Liver Disease: No Seizures: No Thyroid Disease: No - Surgical History Abdominal Surgery: No Appendectomy: No Cardiac Surgery: No Cholecystectomy: No Lung Surgery: No Neurologic Surgery: No Orthopedic Surgery: No - Immunization History Immunization Up to Date: Yes - Suicide/Smoking/Psychosocial Hx Smoking History: Never smoked Have you smoked in the past 12 months: No If you are a former smoker, when did you quit?: 50YRS AGO Hx Alcohol Use: No Drug/Substance Use Hx: No Substance Use Type: None Hx Substance Use Treatment: No Respiratory Specific PMHX - Complaint Specific PMHX Bronchitis: No Pneumonia: No Review of Systems - Review of Systems Able to Perform ROS?: Yes Is the patient limited Mongolian proficient: No Constitutional: Yes: Weakness HEENTM: No: Symptoms Reported Respiratory: Yes: Cough, SOB with Exertion Cardiac (ROS): No: Symptoms Reported ABD/GI: No: Symptoms Reported : No: Symptoms Reported Musculoskeletal: No: Symptoms Reported Integumentary: No: Symptoms Reported Neurological: No: Symptoms reported *Physical Exam - Vital Signs Last Vital Signs Temp Pulse Resp BP Pulse Ox 98.8 F 72 18 92/54 99 04/08/17 08:29 04/08/17 08:29 04/08/17 08:29 04/08/17 08:29 04/08/17 08:29 - Physical Exam General Appearance: Yes: Nourished, Appropriately Dressed. No: Apparent Distress HEENT: positive: EOMI, KAYLAH, Normal ENT Inspection Respiratory/Chest: positive: Lungs Clear, Normal Breath Sounds. negative: Chest Tender, Respiratory Distress Cardiovascular: positive: Regular Rhythm, Regular Rate, S1, S2 Gastrointestinal/Abdominal: positive: Normal Bowel Sounds, Soft, Protuberent. negative: Tender ED Treatment Course - LABORATORY CBC & Chemistry Diagram: 04/08/17 09:25 04/08/17 09:25 Medical Decision Making - Medical Decision Making 04/08/17 11:11 Chest xray, large heart, clear lungs. 04/08/17 11:20 Creatinine elevated consistent with ESRF. Will reevaluate. 04/08/17 11:33 Gave Calcium gluconate 6.6, corected for albumin to 7.3) PO and IV. Will discharge. Go to dialysis tomorrow as schedule. 04/08/17 12:20 duoneb didnt help with cough. *DC/Admit/Observation/Transfer Diagnosis at time of Disposition: Diarrhea, Hypocalcemia, Cough - Discharge Dispostion Disposition: HOME Condition at time of disposition: Improved Admit: No - Prescriptions Prescriptions: Loperamide HCl [Imodium -] 2 mg PO Q8H #21 capsule - Referrals Referrals: Ana Ambrose MD [Primary Care Provider] - Stanton Louis MD [Staff Physician] - - Patient Instructions Printed Discharge Instructions: DI for Chronic Bronchitis Additional Instructions: Go to your dialysis appointment tomorrow as schedule. Make appointment with Dr. Louis within the week for your chronic cough., Take Imodium to suppress diarrhea if you know you wont have access to a bathroom for some time/ - Post Discharge Activity
--- NOTE | 2017-04-08 09:05 | PDOC ---
Attending Attestation - Resident Resident Name: David Jensen - ED Attending Attestation I have performed the following: I have examined & evaluated the patient, The case was reviewed & discussed with the resident, I agree w/resident's findings & plan, Exceptions are as noted - HPI HPI: 04/08/17 09:03 71y M hx of ESRD (MWF, last dialysis Sunday), presents with 2 months of cough productive of whitish sputum and 2 weeks of watery diarrhea (no blood/melena). Pt states his cough has karthik constant, without hemoptysis, green sputum, fever/ chills, sob, chest pain, leg swelling. Pt does note that sometimes the coughing is worse at night. There is no improvement of the cough with dialysis. Pt notes his diarrhea is frequent, once ever few hours, small volume, watery, without any blood/tarry substance. There is no associated abdominal pain, n/v, diaphroesis, fever/chills. No recent abx use or travel. No sick contacts. on exam pt well appearing lungs cta w/o wheezing/rales cardiac rrr abd soft nontender wo rebound/guarding dry mucus membranes pt vitals noted for borderline BP ddx: cough - chf, esrd/fluid overload, pna, consider PE, but do not think this is likely diarrhea - will r/o metabolic drangements, no blood or abd tenderness to suggest dangerous cause - Physicial Exam PE: 04/08/17 16:20 see above - Medical Decision Making 04/08/17 12:20 labs reviewed cxr neg pt feeling improved pt does endorse improvement with taking a shower, and he notes it is pretty dry in his apt - will recommend humidifier, and taking antitussive like halls as he said it helps will have him fu with a pulm for further workup A portion of this note was documented by scribe services under my direction. I have reviewed the details of the note, within reason, and agree with the documentation with the following case summary and management plan written by me Heart Score/ECG Review - ECG Impressions Comment:: 04/08/17 10:34 Twelve-lead EKG was performed and reviewed by me. There is normal sinus rhythm with a normal rate. Rate of 88 First degree AV block left axis devation
[2017-04-08] MEDS ORDERED: SODIUM CHLORIDE 500 ML IV STA (09:15)
[2017-04-08 09:33] LABS: BASO % 0.6 % (0-2.0); EOS % 4.9 % (0-4.5); HEMATOCRIT 41.1 % (35.4-49); HEMOGLOBIN 13.2 GM/dL (11.7-16.9); LYMPH % 18.8 % (8-40); MCH 30.3 pg (25.7-33.7); MEAN CELL VOLUME 94.9 fl (80-96); MEAN PLT VOLUME 8.6 fl (7.5-11.1); NEUT % 61.7 % (42.8-82.8); PLATELET COUNT 151 K/MM3 (134-434); RBC 4.34 M/mm3 (4.00-5.60); RDW 17.3 % (11.9-15.9)
[2017-04-08 09:55] LABS: ALBUMIN 3.1 g/dl (3.4-5.0); ANION GAP 11 (8-16); BILIRUBIN,TOTAL 0.5 mg/dL (0.2-1.0); BLOOD UREA NITROGEN 42 mg/dL (7-18); CHLORIDE 104 mmol/L (98-107); CO2 23 mmol/L (21-32); GLUCOSE,RANDOM 81 mg/dL (74-106); SGPT/ALT 35 U/L (12-78); SODIUM 138 mmol/L (136-145); TOT PROT 6.4 g/dl (6.4-8.2)
[2017-04-08 10:00] LABS: ALK PHOS 60 U/L (45-117)
[2017-04-08 10:04] LABS: POTASSIUM 4.7 mmol/L (3.5-5.1); SGOT/AST 37 U/L (15-37)
[2017-04-08 10:05] LABS: CALCIUM 6.6 mg/dL (8.5-10.1); CREATININE 11.4 mg/dL (0.7-1.3)
[2017-04-08] MEDS ORDERED: ASPIRIN 81 MG CHEWABLE TABLETS PO ONE (10:50)
[2017-04-08] MEDS ORDERED: morphine CARPU-JECT 2 MG/1 ML DISP.SYRIN IVPUSH ONE (10:51)
[2017-04-08] MEDS ORDERED: CALCIUM CARBONATE 650 MG TABLET PO ONE (11:26)
[2017-04-08] MEDS ORDERED: CALCIUM GLUCONATE 10% - 1,000 MG/10 ML VIAL IVPUSH ONE (11:33)
[2017-04-08] MEDS ORDERED: ALBUTEROL SO4 2.5/IPRATROPIUM 0.5 INH SOL 3 ML VIAL.NEB. NEB ONE ×2 (11:40→12:03)
[2017-04-08] MEDS ORDERED: CALCIUM GLUCONATE 10% - 1,000 MG/10 ML VIAL ONE (12:03)
[2017-04-08 12:55] VITALS: BP 135/80; PULSE 90
--- NOTE | 2017-04-08 18:32 | EKG ---
Test Reason : Blood Pressure : / mmHG Vent. Rate : 088 BPM Atrial Rate : 088 BPM P-R Int : 258 ms QRS Dur : 096 ms QT Int : 402 ms P-R-T Axes : 061 -50 099 degrees QTc Int : 486 ms SINUS RHYTHM WITH 1ST DEGREE A-V BLOCK RIGHT ATRIAL ENLARGEMENT LEFT AXIS DEVIATION INCOMPLETE RIGHT BUNDLE BRANCH BLOCK MODERATE VOLTAGE CRITERIA FOR LVH, MAY BE NORMAL VARIANT T WAVE ABNORMALITY, CONSIDER LATERAL ISCHEMIA PROLONGED QT ABNORMAL ECG WHEN COMPARED WITH ECG OF 08-JUN-2016 07:25, T WAVE INVERSION MORE EVIDENT IN LATERAL LEADS Confirmed by MD DEN, CHUCK ([id number]) on 04/08/2017 6:32:26 PM Referred By: Confirmed By:CHUCK CRENSHAW MD
== END 2017-04-08 12:55 | disposition home or self-care (01) ==
LOC: JER 08:27
PROC: 3E0F7GC Introduction of Other Therapeutic Substance into Respiratory Tract, Via Natural or Artificial Opening (ICD-10-PCS; principal; 2017-04-08)
PROC: 3E0337Z Introduction of Electrolytic and Water Balance Substance into Peripheral Vein, Percutaneous Approach (ICD-10-PCS; 2017-04-08)
PROC: 3E0337Z Introduction of Electrolytic and Water Balance Substance into Peripheral Vein, Percutaneous Approach (ICD-10-PCS; 2017-04-08)
DX: J42 Unspecified chronic bronchitis (principal); R19.7 Diarrhea, unspecified; E83.51 Hypocalcemia; I12.0 Hypertensive chronic kidney disease with stage 5 chronic kidney disease or end stage renal disease; N18.6 End stage renal disease; N17.8 Other acute kidney failure; Z99.2 Dependence on renal dialysis; E78.00 Pure hypercholesterolemia, unspecified
CPT/HCPCS: 36415; 71046-TC-FY; 80053; 85025; 93005; 93010; 94640; 96361; 96374; 99284-25

== ENCOUNTER 2018-06-10 06:57 | Inpatient (IN) | payer OTHER, BC ==
--- NOTE | 2018-06-10 07:56 | PDOC ---
History of Present Illness - General Chief Complaint: Dialysis Shunt Problem Stated Complaint: DIALYSIS ARM BLEEDING Time Seen by Provider: 06/10/18 07:37 History Source: Patient Exam Limitations: No Limitations - History of Present Illness Initial Comments: 06/10/18 07:55 72 yo male pmh HTN, ESRD (dialysis 21 years, MWF, last done Sunday) and CVA (no residual deficits) presents to the ED for bleeding from his right AV fistula ( used for approx 10 years). Pt states while in bed at 4 am today he started bleeding excessively from the fistula, hemostasis achieved after 20 min of compression. Of note pt states he has had a cough productive of white sputum for 1 week with noted bulging of the fistula with each cough and also pain in the fistula since Sunday Dialysis do to improper access. Vasc surg is Dr. Lema and Nephro Dr. Gaye Abraham. Denies ASA/AC use, LOC, weakness, dizziness, F/C/N/V, CP, SOB, abdominal pain. Past History - Past Medical History Allergies/Adverse Reactions: Allergies Allergy/AdvReac Type Severity Reaction Status Date / Time ramipril Allergy Severe Swelling Verified 06/10/18 07:26 Home Medications: Ambulatory Orders Amlodipine Besylate [Norvasc -] 10 mg PO DAILY 03/29/14 Calcium Acetate [Phoslo] 667 mg PO DAILY 03/29/14 Doxazosin Mesylate [Cardura -] 2 mg PO DAILY 03/29/14 Aspirin Coated [Ecotrin -] 81 mg PO DAILY #30 tab 06/09/16 Loperamide HCl [Imodium -] 2 mg PO Q8H #21 capsule 04/08/17 Anemia: No Asthma: No Cancer: No Cardiac Disorders: No CVA: No COPD: No CHF: No Dementia: No Diabetes: No Dialysis: Yes (mwf) GI Disorders: Yes (AV FISTULA RIGHT ARM (M,W,F)) Disorders: No HTN: Yes Hypercholesterolemia: Yes Liver Disease: No Seizures: No Thyroid Disease: No - Surgical History Abdominal Surgery: No Appendectomy: No Cardiac Surgery: No Cholecystectomy: No Lung Surgery: No Neurologic Surgery: No Orthopedic Surgery: No - Immunization History Immunization Up to Date: Yes - Suicide/Smoking/Psychosocial Hx Smoking History: Unknown if ever smoked Have you smoked in the past 12 months: No If you are a former smoker, when did you quit?: 50YRS AGO Hx Alcohol Use: No Drug/Substance Use Hx: No Substance Use Type: None Hx Substance Use Treatment: No *Physical Exam - Vital Signs Last Vital Signs Temp Pulse Resp BP Pulse Ox 98.1 F 65 17 0/0 L 95 06/10/18 07:27 06/10/18 07:27 06/10/18 07:27 06/10/18 07:27 06/10/18 07:27 ED Treatment Course - LABORATORY CBC & Chemistry Diagram: 06/10/18 08:48 06/10/18 08:48 Medical Decision Making - Medical Decision Making 06/10/18 10:[address] Blair for non emergent dialysis. 06/10/18 12:16 Dr. Trejo is covering for Dr. Blair, case presented and is aware. Will follow pt for non emergent dialysis Case presented to Dr. Casillas who agrees to admit pt for R/O ACS *DC/Admit/Observation/Transfer - Referrals - Patient Instructions - Post Discharge Activity
--- NOTE | 2018-06-10 08:19 | PDOC ---
Attending Attestation - Resident Resident Name: Edmond Alves - ED Attending Attestation I have performed the following: I have examined & evaluated the patient, The case was reviewed & discussed with the resident, I agree w/resident's findings & plan, Exceptions are as noted - HPI HPI: 06/10/18 11:40 Reviewed Residents HPI - Physicial Exam PE: 06/10/18 11:40 Reviewed Residents PE - Medical Decision Making 06/10/18 11:40 72 years old with past medical history significant for hypertension end-stage renal disease Sunday CVA presents to the ED with 2 complaints. Patient with bleeding from his right AV fistula (has fistulas in both arms) also complaining of cough productive for white sputum 1 week EKG M and straits normal sinus rhythm first-degree AV block no ST elevations or T-wave inversions Hemostasis achieved with Surgicel and Steri-Strips. Normal physical exam Laboratory analysis notable for troponin of 0.11 1 trending patient's previous troponins his last troponin was 0.02 Unclear if this is demand or cardiac in nature Blood pressure difficult to accurately obtain given that patient cannot have blood pressures taken in either his arms depends on his legs which she states is often very inaccurate is most recent blood pressure was 170/128 in his left ankle. Patient states this is within his normal limits but he also did not take his blood pressure medication this morning and is also due for dialysis today. We'll admit to hospitalist for further management trending of troponins We'll avoid over aggressively treating patient's blood pressure as he is due for dialysis today
[2018-06-10 09:02] LABS: BASO % 0.2 % (0-2.0); EOS % 0.3 % (0-4.5); HEMATOCRIT 35.3 % (35.4-49); HEMOGLOBIN 11.9 GM/dL (11.7-16.9); LYMPH % 2.9 % (8-40); MCH 33.6 pg (25.7-33.7); MCHC 33.7 g/dl (32.0-35.9); MEAN CELL VOLUME 99.7 fl (80-96); MEAN PLT VOLUME 9.2 fl (7.5-11.1); MONO % 9.7 % (3.8-10.2); NEUT % 86.9 % (42.8-82.8); PLATELET COUNT 118 K/MM3 (134-434); RBC 3.55 M/mm3 (4.00-5.60); RDW 15.1 % (11.9-15.9); WHITE BLOOD COUNT 10.3 K/mm3 (4.0-10.0)
[2018-06-10 09:31] LABS: INR 1.24 (0.83-1.09); PROTHROMBIN TIME (PATIENT) 14.7 SEC (9.7-13.0)
[2018-06-10 09:33] LABS: ACTIVATED PTT 30.5 SECONDS (25.2-36.5)
[2018-06-10 10:00] LABS: ALBUMIN 3.6 g/dl (3.4-5.0); ALK PHOS 79 U/L (45-117); ANION GAP 15 MMOL/L (8-16); BILIRUBIN,TOTAL 0.8 mg/dL (0.2-1); BLOOD UREA NITROGEN 60 mg/dL (7-18); CALCIUM 7.6 mg/dL (8.5-10.1); CHLORIDE 101 mmol/L (98-107); CO2 19 mmol/L (21-32); GLUCOSE,RANDOM 72 mg/dL (74-106); SGOT/AST 46 U/L (15-37); SGPT/ALT 34 U/L (13-61); SODIUM 135 mmol/L (136-145); TOT PROT 7.6 g/dl (6.4-8.2)
[2018-06-10 10:05] LABS: CREATININE 11.3 mg/dL (0.55-1.3)
[2018-06-10 10:23] LABS: POTASSIUM 4.4 mmol/L (3.5-5.1)
[2018-06-10] MEDS ORDERED: amLODIPine BESYLATE 10 MG TABLET (FP) PO ONE (11:13)
[2018-06-10] MEDS ORDERED: DOXAZOSIN MESYLATE 2 MG TABLET (FP) PO SCH (11:15)
[2018-06-10] MEDS ORDERED: CALCIUM GLUBIONATE 1.8 GM/5 ML SOLUTION PO ONE (11:16)
--- NOTE | 2018-06-10 11:58 | HP ---
CHIEF COMPLAINT: bleeding from right arm PCP:Dr Lovett HISTORY OF PRESENT ILLNESS: The patient is a 72 year old male with a PMHx of ESRD on HD (MWF), last dialysis on 06/07/18, CVA (no residual defects), HTN, presented to the hospital after he had bleeding from fistula in right arm. He states that was coughing a lot and retching and noticed that his fistula that started bleeding. He applied pressure and after several minutes it stopped. It never happened in the past. He has been complaining of productive cough with white sputum for a week. The patient reports that his BP is usually very elevated before dialysis and if he doesn't take his home medications. His PCP recently ordered ECHO but the patient doesn't know why. He denies seeing [employer], CAD in the past. He denies fever, chills, chest pain, SOB, nasal congestion. The patient also didn' t use any OTC medications. He denies abdominal pain, headache, dizziness. Today is his dialysis day. ER course was notable for: (1)troponin 0.11 (2)EKG (3)Norvasc PAST MEDICAL HISTORY: as above PAST SURGICAL HISTORY: fistula in RUE and LUE Social History: Smoking:former smoker, quit 50 years ago Alcohol:no Drugs: no Family History: The patient doesn't want to provide family medical history Allergies ramipril Allergy (Severe, Verified 06/10/18 07:26) Swelling HOME MEDICATIONS: Home Medications Medication Instructions Recorded Amlodipine Besylate [Norvasc -] 10 mg PO DAILY 03/29/14 Calcium Acetate [Phoslo] 667 mg PO DAILY 03/29/14 Doxazosin Mesylate [Cardura -] 2 mg PO DAILY 03/29/14 Aspirin Coated [Ecotrin -] 81 mg PO DAILY #30 tab 06/09/16 Loperamide HCl [Imodium -] 2 mg PO Q8H #21 capsule 04/08/17 REVIEW OF SYSTEMS CONSTITUTIONAL: Absent: fever, chills, diaphoresis, generalized weakness, malaise, loss of appetite, weight change HEENT: Absent: rhinorrhea, nasal congestion, throat pain, throat swelling, difficulty swallowing, mouth swelling, ear pain, eye pain, visual changes CARDIOVASCULAR: Absent: chest pain, syncope, palpitations, irregular heart rate, lightheadedness , peripheral edema RESPIRATORY: Absent: cough, shortness of breath, dyspnea with exertion, orthopnea, wheezing, stridor, hemoptysis GASTROINTESTINAL: Absent: abdominal pain, abdominal distension, nausea, vomiting, diarrhea, constipation, melena, hematochezia GENITOURINARY: Absent: dysuria, frequency, urgency, hesitancy, hematuria, flank pain, genital pain MUSCULOSKELETAL: Absent: myalgia, arthralgia, joint swelling, back pain, neck pain SKIN: Absent: rash, itching, pallor HEMATOLOGIC/IMMUNOLOGIC: Absent: easy bleeding, easy bruising, lymphadenopathy, frequent infections ENDOCRINE: Absent: unexplained weight gain, unexplained weight loss, heat intolerance, cold intolerance NEUROLOGIC: Absent: headache, focal weakness or paresthesias, dizziness, unsteady gait, seizure, mental status changes, bladder or bowel incontinence PSYCHIATRIC: Absent: anxiety, depression, suicidal or homicidal ideation, hallucinations. PHYSICAL EXAMINATION Vital Signs - 24 hr 06/10/18 06/10/18 07:27 07:57 Temperature 98.1 F Pulse Rate 65 Respiratory 17 Rate Blood Pressure 0/0 L Blood Pressure 186/143 H [Left Calf] O2 Sat by Pulse 95 Oximetry (%) GENERAL: Awake, alert, and fully oriented, in no acute distress. HEAD: Normal with no signs of trauma. EYES: Extraocular movements intact, conjunctiva erythematous. EARS, NOSE, THROAT: Oropharynx clear without exudates. Moist mucous membranes. NECK: Normal range of motion, supple. LUNGS: Breath sounds equal, diminished to auscultation bilaterally. No wheezes, and no crackles. No accessory muscle use. HEART: Regular rate and rhythm, normal S1 and S2 without murmur, rub or gallop. ABDOMEN: Soft, nontender, not distended, normoactive bowel sounds, no guarding, no rebound, no masses. UPPER EXTREMITIES: No peripheral edema, LUE fistula x 2 , no bruit, RUE: fistula covered with gauze, visible dried blood, bruit present. LOWER EXTREMITIES: No peripheral edema. NEUROLOGICAL: Cranial nerves II-XII intact. Normal speech. PSYCHIATRIC: Not cooperative at times. SKIN: Warm, dry, normal turgor, no rashes. Laboratory Results - last 24 hr 06/10/18 06/10/18 06/10/18 08:48 08:48 08:48 WBC 10.3 H RBC 3.55 L Hgb 11.9 Hct 35.3 L MCV 99.7 H MCH 33.6 D MCHC 33.7 RDW 15.1 D Plt Count 118 L D MPV 9.2 Absolute Neuts (auto) 9.0 H Neutrophils % 86.9 H D Lymphocytes % 2.9 L D Monocytes % 9.7 Eosinophils % 0.3 D Basophils % 0.2 Nucleated RBC % 0 PT with INR 14.70 H INR 1.24 H PTT (Actin FS) 30.5 Sodium 135 L Potassium 4.4 Chloride 101 Carbon Dioxide 19 L Anion Gap 15 BUN 60 H Creatinine 11.3 H* Creat Clearance w eGFR 4.52 Random Glucose 72 L Calcium 7.6 L Total Bilirubin 0.8 AST 46 H -ALT 34 Alkaline Phosphatase 79 Creatine Kinase 386 H Creatine Kinase Index 1.3 CK-MB (CK-2) 5.3 H Troponin I 0.11 H Total Protein 7.6 Albumin 3.6 ASSESSMENT/PLAN: The patient is a 72 year old male with a PMHx of ESRD on HD (MWF), last dialysis on 06/07/18, CVA (no residual defects), HTN, presented to the hospital after he had bleeding from fistula in right arm. Elevated troponin: -the patient has been complaining of cough for a week, may be demand ischemia, r /o ACS, infectious process -will follow up troponin at 15:00, 21:00 -EKG reviewed, will f/u -cardiology Dr Abdi consulted -cardiac monitoring on telemetry -ECHO ordered -flu swab, rsv s/p bleeding from right fistula: -no active bleeding now -will consult Vascular Surgery -will go for repair in AM -NPO after midnight HTN urgency: -given Norvasc 10 mg in ED -will get HD today ESRD: -due for dialysis today -will f/u Nephrology recommendations-Dr Rizvi F/E/N: no/no changes/Renal/low Na diet/NPO after midnight Dispo: Telemetry observation, transferred to med surg Problem List - Problem (1) Anemia in ESRD (end-stage renal disease) Code(s): N18.6 - END STAGE RENAL DISEASE; D63.1 - ANEMIA IN CHRONIC KIDNEY DISEASE (2) Bleeding from dialysis shunt Code(s): T82.838A - HEMORRHAGE DUE TO VASCULAR PROSTH DEV/GRFT, INIT (3) Cough Code(s): R05 - COUGH (4) Dialysis AV fistula malfunction Code(s): T82.590A - [facility] COMPL OF SURGICALLY CREATED ARTERIOVENOUS FISTULA, INIT (5) HTN (hypertension) Code(s): I10 - ESSENTIAL (PRIMARY) HYPERTENSION Visit type - Emergency Visit Emergency Visit: Yes ED Registration Date: 06/10/18 Care time: The patient presented to the Emergency Department on the above date and was hospitalized for further evaluation of their emergent condition. - New Patient This patient is new to me today: Yes Date on this admission: 06/10/18 - Critical Care Critical Care patient: No
[2018-06-10] MEDS ORDERED: amLODIPine BESYLATE 5 MG TABLET (FP) ONE ×2 (12:30→12:32)
[2018-06-10] MEDS ORDERED: ACETAMINOPHEN/CAFFEINE/BUTALBITAL 1 TAB PO PRN (13:43)
[2018-06-10] MEDS ORDERED: SODIUM CHLORIDE 250 ML IV PRN ×2 (14:24→21:30)
--- NOTE | 2018-06-10 14:34 | CON.CARD ---
Consult Consult Specialty:: Cardiology Referred by:: Medicine Reason for Consultation:: elevated trop - History of Present Illness Chief Complaint: bleeding from AV fistula History of Present Illness: 72M h/o HTN, ESRD on HD (MWF, last Sun), CVA no residual deficits p/w bleeding in R AV fistula. Also has cough for one week, pain in fistula since Sun. No chest pain, palps, dizziness. Trop in ER 0.11->0.15. 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 History of Recent Travel: No Home Medications - Allergies Allergies/Adverse Reactions: Allergies Allergy/AdvReac Type Severity Reaction Status Date / Time ramipril Allergy Severe Swelling Verified 06/10/18 07:26 - Home Medications Home Medications: Ambulatory Orders Amlodipine Besylate [Norvasc -] 10 mg PO DAILY 03/29/14 Calcium Acetate [Phoslo] 2 tab PO TID 03/29/14 Doxazosin Mesylate [Cardura -] 2 mg PO BID 03/29/14 Aspirin Coated [Ecotrin -] 81 mg PO DAILY #30 tab 06/09/16 Family Disease History - Family Disease History Family History: Unremarkable Review of Systems - Review of Systems Constitutional: reports: No Symptoms Eyes: reports: No Symptoms HENT: reports: No Symptoms Neck: reports: No Symptoms Cardiovascular: reports: No Symptoms Respiratory: reports: No Symptoms Gastrointestinal: reports: No Symptoms Genitourinary: reports: No Symptoms Musculoskeletal: reports: No Symptoms Integumentary: reports: No Symptoms Neurological: reports: No Symptoms Endocrine: reports: No Symptoms Hematology/Lymphatic: reports: No Symptoms Psychiatric: reports: No Symptoms Vital Signs: Vital Signs Temperature 98 F 06/10/18 11:45 Pulse Rate 100 H 06/10/18 11:45 Respiratory Rate 18 06/10/18 11:45 Blood Pressure 144/112 H 06/10/18 11:45 O2 Sat by Pulse Oximetry (%) 100 06/10/18 11:45 Constitutional: Yes: No Distress, Calm Eyes: Yes: Conjunctiva Clear, EOM Intact HENT: Yes: Atraumatic, Normocephalic Neck: Yes: Supple, Trachea Midline Respiratory: Yes: Regular, CTA Bilaterally Gastrointestinal: Yes: Normal Bowel Sounds, Soft Cardiovascular: Yes: Regular Rate and Rhythm JVD: No Carotid Bruit: No PMI: Non-Displaced Heart Sounds: Yes: S1, S2 Murmur: No: Systolic Murmur Musculoskeletal: No: Back Pain Edema: No Peripheral Pulses WNL: No Peripheral Pulses: 1+ Left Doralis Pedis, 1+ Right Dorsalis Pedis Integumentary: No: Jaundice Neurological: Yes: Alert, Oriented Psychiatric: No: Agitated - Other Data Labs, Other Data: CBC, BMP 06/10/18 08:48 06/10/18 08:48 INR, PTT INR 1.24 (0.83-1.09) H 06/10/18 08:48 Troponin, BNP 06/10/18 06/10/18 08:48 13:34 Troponin I 0.11 H 0.15 H Troponin, BNP 06/10/18 06/10/18 08:48 13:34 Troponin I 0.11 H 0.15 H Assessment/Plan echo 2016 mild conc LVH, nl LV/RV function, redundant MV chordae CXR: no acute process elevated trop - 0.11->0.15, indeterminate range, flat trend - history, EKG not c/w ACS, no chest pain - echo pending - prior nl LV function in 2017 - likely demand in setting of ESRD - can dc tele HTN - continue current meds ESRD - on HD, renal consulted - bleeding from fistula - vascular consulted CVA - holding aspirin in setting of bleeding from fistula
--- NOTE | 2018-06-10 15:25 | CONSULT ---
Consult - text type - Consultation Consultation Note: Renal consult for ESRD on HD This is a 72 year old gentleman with hx of ESRD on HD (MWF), CVA, hypertension who presented with bleeding from AVF site. Pt last had dialysis on Sunday. Denies any prolonged bleeding after dialysis. Bleeding not stopped in the ED after applying pressure. Denies any CP, SOB, Abd pain, N/V/D. No fever or chills. No leg swelling. PMhx: as above Allergies: NKDA Family Hx: NC Social Hx: No T/A/D ROS: as per HPI, all other pertinent ros negative Home Medications Medication Instructions Recorded Amlodipine Besylate [Norvasc -] 10 mg PO DAILY 03/29/14 Calcium Acetate [Phoslo] 667 mg PO DAILY 03/29/14 Doxazosin Mesylate [Cardura -] 2 mg PO DAILY 03/29/14 Aspirin Coated [Ecotrin -] 81 mg PO DAILY #30 tab 06/09/16 Loperamide HCl [Imodium -] 2 mg PO Q8H #21 capsule 04/08/17 Intake & Output 06/07/18 06/08/18 06/09/18 06/10/18 23:59 23:59 23:59 23:59 Weight 75 kg NAD awake and alert neck supple, no JVD RRR, no M/R CTA soft NT/ND no LE edema right arm AVF CBC, BMP 06/10/18 08:48 06/10/18 08:48 Current Medications Acetaminophen/Butalbital/Caffeine (Fioricet -) 1 tablet PO Q6H PRN PRN Reason: HEADACHE Amlodipine Besylate (Norvasc -) 10 mg PO DAILY STEVE Calcium Acetate (Phoslo -) 667 mg PO DAILY STEVE Doxazosin Mesylate (Cardura -) 2 mg PO DAILY STEVE Sodium Chloride (Normal Saline -) 250 mls @ 3,000 mls/hr IV PRN PRN PRN Reason: Hypotension during Dialysis Stop: 06/11/18 14:24 72 year old gentleman with hx of ESRD on HD (MWF), CVA, hypertension who presented with bleeding from AVF site. #ESRD on HD #Bleeding from AVF site r/o stenosis #Metabolic acidosis #Hypertension #Elevated troponin level for HD today, 3.5 hour Tx with UF as tolerated Renal diet, 1.2L fluid restriction Vascular to evaluate access in OR tomorrow Trend cardiac enzymes continue cardura and amlodipine Trend bicarb levels s/p HD Thank you Gerard Trejo DO
--- NOTE | 2018-06-10 15:34 | PN ---
Teaching Attending Note Name of Resident: Zina Chapman ATTENDING PHYSICIAN STATEMENT I saw and evaluated the patient. I reviewed the resident's note and discussed the case with the resident. I agree with the resident's findings and plan as documented with exceptions below. SUBJECTIVE: 72 yom with PMHx of ESRD on HD MWF, HTN, CVA with no residual deficits, woke up around 4 am today with bleeding from his right AV fistula site, bleeding stopped with compression for 20 min, came to the ED. In the ED, full hemostasis achied with surgical/steri strips. He was noted with elevated BP readings, but reports his BP readings other than in HD, have been erroneous as can't check in both upper extremities due to fistula. Has had cough with clear sputum for 1 week, no fevers, chills, chest pain, palpitations, dizziness, dyspnea, visual or speech disturbances, abdominal or urinary complaints. OBJECTIVE: Vital Signs Period Temp Pulse Resp BP Sys/Mckinley Pulse Ox Last 24 Hr 98 F-98.1 F 65-100 17-18 0-186/0-143 95-100 Intake & Output 06/07/18 06/08/18 06/09/18 06/10/18 23:59 23:59 23:59 23:59 Weight 165 lb 5.547 oz GENERAL: Awake, alert, and fully oriented, in no acute distress. HEAD: Normal with no signs of trauma. EYES: Pupils equal, round and reactive to light, extraocular movements intact, sclera anicteric, conjunctiva clear. No lid lag. EARS, NOSE, THROAT: Ears normal, nares patent, oropharynx clear without exudates. Moist mucous membranes. NECK: Normal range of motion, soft, supple, no JVD LUNGS: Breath sounds equal, clear to auscultation bilaterally. No wheezes, and no crackles. No accessory muscle use. HEART: Regular rate and rhythm, normal S1 and S2 ABDOMEN: Soft, nontender, not distended, normoactive bowel sounds, no guarding, no rebound, no masses. MUSCULOSKELETAL: Normal range of motion at all joints. No bony deformities or tenderness. No CVA tenderness. UPPER EXTREMITIES: LUE fistula with steri strip and dressing, no active discharge LOWER EXTREMITIES: trace pedal edema NEUROLOGICAL: AAOx3, power 5/5, sensation intact and symmetric to light touch, EOMI, Cranial nerves II-XII intact. Normal speech. Gait not observed PSYCHIATRIC: Cooperative. Good eye contact. Pleasant, Appropriate mood and affect. SKIN: Warm, dry, normal turgor, no rashes or lesions noted, normal capillary refill. Home Medications Medication Instructions Recorded Amlodipine Besylate [Norvasc -] 10 mg PO DAILY 03/29/14 Calcium Acetate [Phoslo] 2 tab PO TID 03/29/14 Doxazosin Mesylate [Cardura -] 2 mg PO BID 03/29/14 Aspirin Coated [Ecotrin -] 81 mg PO DAILY #30 tab 06/09/16 Active Medications Acetaminophen/Butalbital/Caffeine (Fioricet -) 1 tablet PO Q6H PRN PRN Reason: HEADACHE Amlodipine Besylate (Norvasc -) 10 mg PO DAILY STEVE Calcium Acetate (Phoslo -) 1,334 mg PO TIDCM STEVE Doxazosin Mesylate (Cardura -) 2 mg PO BID STEVE Sodium Chloride (Normal Saline -) 250 mls @ 3,000 mls/hr IV PRN PRN PRN Reason: Hypotension during Dialysis Stop: 06/11/18 14:24 Laboratory Results - last 24 hr 06/10/18 06/10/18 06/10/18 08:48 08:48 08:48 WBC 10.3 H RBC 3.55 L Hgb 11.9 Hct 35.3 L MCV 99.7 H MCH 33.6 D MCHC 33.7 RDW 15.1 D Plt Count 118 L D MPV 9.2 Absolute Neuts (auto) 9.0 H Neutrophils % 86.9 H D Lymphocytes % 2.9 L D Monocytes % 9.7 Eosinophils % 0.3 D Basophils % 0.2 Nucleated RBC % 0 PT with INR 14.70 H INR 1.24 H PTT (Actin FS) 30.5 Sodium 135 L Potassium 4.4 Chloride 101 Carbon Dioxide 19 L Anion Gap 15 BUN 60 H Creatinine 11.3 H* Creat Clearance w eGFR 4.52 Random Glucose 72 L Calcium 7.6 L Total Bilirubin 0.8 AST 46 H ALT 34 Alkaline Phosphatase 79 Creatine Kinase 386 H Creatine Kinase Index 1.3 CK-MB (CK-2) 5.3 H Troponin I 0.11 H Total Protein 7.6 Albumin 3.6 06/10/18 13:34 WBC RBC Hgb Hct MCV MCH MCHC RDW Plt Count MPV Absolute Neuts (auto) Neutrophils % Lymphocytes % Monocytes % Eosinophils % Basophils % Nucleated RBC % PT with INR INR PTT (Actin FS) Sodium Potassium Chloride Carbon Dioxide Anion Gap BUN Creatinine Creat Clearance w eGFR Random Glucose Calcium Total Bilirubin AST ALT Alkaline Phosphatase Creatine Kinase Creatine Kinase Index CK-MB (CK-2) Troponin I 0.15 H Total Protein Albumin EKG: NSR, 1st degree AV block CX- cardiomegaly, no acute process ASSESSMENT AND PLAN: 72 yom with PMhx of ESRD on HD, HTN, CVA with no residual deficits admitted with bleeding Av fistula and elevated troponin. -Bleeding AV fistula s/p hemostasis -Uncontrolled HTN vs erroneous BP reading (Patient reports reliable BP only in HD, given unable to check in upper extremities, and LE check unreliable) -Elevated troponin, suspect demand mediated vs from renal dysfunction -Cough, ?URI like illness -HTN -ESRD on HD Plan: Patient asymptomatic. Tn flat. follow up 2D echo and cardiology input. Patient presentation, current biomarkers not suggestive of ACS Nephrology input noted, for HD, monitor BP in HD. For HD now. Resume doxazocin and amlodipine. Vascular surgery consulted Dr. Le, possible plan for OR for fistula ? repair/stent Hold ASA DVTPPX SCDs Dispo plan for d/c in 24 hours pending above if no concerns. Discussed with patient and at bedside in detail, all questions answered. Care co-ordinated with ED, nephrology and cardiology.
[2018-06-10] MEDS ORDERED: ACETAMINOPHEN 325 MG TABLET (FP) PO PRN (15:39)
--- NOTE | 2018-06-10 16:35 | ECHO ---
Name: CELESTINA LEONE Exam:Adult Echocardiogram Study Date: 06/10/2018 02:22 PM Age: 72 yrs Reason For Study: ELEVATED TROPONIN Height: 65 in Weight: 165 lb BSA: 1.8 m2 MMode/2D Measurements & Calculations IVSd: 1.2 cm Ao root diam: 3.0 cm LVIDd: 5.2 cm LA dimension: 3.6 cm LVIDs: 4.0 cm LVPWd: 1.1 cm EDV(Teich): 129.5 ml LVOT diam: 2.0 cm ESV(Teich): 69.8 ml Doppler Measurements & Calculations MV E max nilam: 123.4 cm/sec Ao V2 max: 183.5 cm/sec MV A max nilam: 89.3 cm/sec Ao max P.5 mmHg MV E/A: 1.4 Ao V2 mean: 127.8 cm/sec Ao mean P.3 mmHg Ao V2 VTI: 37.3 cm TR max nilam: 360.5 cm/sec Med Peak E' Nilam: 4.6 cm/sec TR max P.0 mmHg Med E/e': 26.5 Lat Peak E' Nilam: 6.3 cm/sec Lat E/e': 19.5 Procedure A complete two-dimensional transthoracic echocardiogram was performed (2D, M-mode, Doppler and color flow Doppler). Left Ventricle The left ventricle is normal in size. Left ventricular systolic function is mildly reduced. Ejection Fraction = 45-50%. Diastolic dysfunction, Grade II (pseudonormalization pattern). There is mild global hypokin esis of the left ventricle. Right Ventricle The right ventricle is normal size. The right ventricular systolic function is normal. RV systolic TD I is 11 cm/s. Atria The left atrial size is normal. Right atrial size is normal. Mitral Valve There is mild mitral valve thickening. There is mild mitral annular calcification. There is mild mitr al regurgitation. Tricuspid Valve The tricuspid valve is normal in structure and function. There is moderate tricuspid regurgitation. P ulmonary artery systolic pressure is at least 60 mmHg assuming RA pressure is 8 mmHg. Aortic Valve There is mild aortic sclerosis.;. Trace to mild aortic regurgitation. Pulmonic Valve The pulmonic valve is not well visualized. Mild pulmonic valvular regurgitation. Great Vessels The aortic root is normal size. Pericardium/Pleura There is no pericardial effusion. Interpretation Summary The left ventricle is normal in size. Left ventricular systolic function is mildly reduced. There is mild global hypokinesis of the left ventricle. Ejection Fraction = 45-50%. Diastolic dysfunction, Grade II (pseudonormalization pattern). The right ventricular systolic function is normal. The left atrial size is normal. Right atrial size is normal. There is mild mitral valve thickening. There is mild mitral annular calcification. There is mild mitral regurgitation. There is moderate tricuspid regurgitation. Pulmonary artery systolic pressure is at least 60 mmHg assuming RA pressure is 8 mmHg There is mild aortic sclerosis. Trace to mild aortic regurgitation. Mild pulmonic valvular regurgitation. There is no pericardial effusion. Previous study is not available for comparison Lux Guerra MD 06/10/2018 04:34 PM
[2018-06-10] MEDS: CALCIUM ACETATE 667 MG CAPSULE (FP) PO SCH (23:11)
[2018-06-10] MEDS: DOXAZOSIN MESYLATE 2 MG TABLET (FP) PO SCH (23:12)
[2018-06-11] MEDS ORDERED: HEPARIN NA (PORCINE) 5,000 UNITS/ML 1ML VIAL ONE (07:29)
[2018-06-11] MEDS ORDERED: LIDOCAINE HCL 1%, 10 MG/ML (20ML VIAL) ONE (07:30)
[2018-06-11] MEDS ORDERED: SUCCINYLCHOLINE CHLORIDE 200 MG/10 ML VIAL ONE (07:36)
[2018-06-11] MEDS ORDERED: MIDAZOLAM HCL 2 MG/2 ML SINGLE DOSE VIAL ONE (07:36)
[2018-06-11] MEDS ORDERED: PROPOFOL 20 ML ONE ×3 (07:37)
[2018-06-11] MEDS ORDERED: ceFAZolin SODIUM 1 GM VIAL IVPB ONE (08:30)
[2018-06-11] MEDS ORDERED: ceFAZolin SODIUM 1 GM VIAL ONE (08:33)
[2018-06-11] MEDS ORDERED: LIDOCAINE HCL 1%, 10 MG/ML (50 mL VIAL) IJ ONE ×2 (08:43)
[2018-06-11] MEDS ORDERED: GLYCOPYRROLATE 0.2 MG/1 ML VIAL ONE (09:03)
--- NOTE | 2018-06-11 09:41 | OP ---
Operative Note - Note: Operative Date: 06/11/18 Pre-Operative Diagnosis: Central vein stenosis Operation: Right arm venogram, placement stent central venous dialysis Findings: Patent right radial-cephalic fistula. Stenosis subclavian-SVC junction 80% Implants: 14 x 40 mm LifeStar stent Post-Operative Diagnosis: Same as Pre-op Surgeon: Bryce Mello Anesthesiologist/VIDEO PRODUCER: Bushra Almaguer Anesthesia: Fractional
[2018-06-11] MEDS ORDERED: DOXAZOSIN MESYLATE 2 MG TABLET (FP) PO SCH (10:00)
[2018-06-11] MEDS ORDERED: CALCIUM ACETATE 667 MG CAPSULE (FP) PO SCH ×2 (10:00→12:00)
[2018-06-11] MEDS ORDERED: amLODIPine BESYLATE 10 MG TABLET (FP) PO SCH ×2 (10:00)
[2018-06-11] MEDS ORDERED: ASPIRIN COATED 81 MG TABLET.EC PO SCH (10:00)
[2018-06-11] MEDS ORDERED: SODIUM CHLORIDE 250 ML IV PRN (10:26)
[2018-06-11] MEDS: CALCIUM ACETATE 667 MG CAPSULE (FP) PO SCH ×2 (10:36→16:59)
[2018-06-11] MEDS: DOXAZOSIN MESYLATE 2 MG TABLET (FP) PO SCH ×2 (11:24→21:10)
[2018-06-11] MEDS ORDERED: hydrALAZINE HCL 20 MG/ML VIAL ONE (11:32)
[2018-06-11] MEDS: ASPIRIN COATED 81 MG TABLET.EC PO SCH (11:36)
[2018-06-11] MEDS: SODIUM CHLORIDE 1,000 ML IV SCH (11:37)
[2018-06-11] MEDS ORDERED: FLUMAZENIL 0.5 MG/5 ML VIAL ONE (11:48)
[2018-06-11] MEDS ORDERED: ESMOLOL HCL 100,000 MCG/10 ML VIAL ONE (11:48)
[2018-06-11] MEDS: ACETAMINOPHEN 325 MG TABLET (FP) PO PRN (11:53)
--- NOTE | 2018-06-11 14:00 | PN ---
Physical Exam: SUBJECTIVE: Patient seen and examined, feeling good. OBJECTIVE: Vital Signs Period Temp Pulse Resp BP Sys/Mckinley Pulse Ox Last 24 Hr 98.2 F-99.9 F 72-101 16-220 94-166/50-97 92-99 GENERAL: The patient is awake, alert, and fully oriented, in no acute distress. HEAD: Normal with no signs of trauma. EYES: Extraocular movements intact, conjunctiva clear. ENT: Oropharynx clear without exudates, moist mucous membranes. NECK: Trachea midline, full range of motion, supple. LUNGS: Breath sounds equal, clear to auscultation bilaterally, no wheezes, no crackles HEART: Regular rate and rhythm, S1, S2 without murmur, rub or gallop. ABDOMEN: Soft, nontender, nondistended, normoactive bowel sounds, no guarding, no rebound. EXTREMITIES: 2+ pulses, warm, no edema. NEUROLOGICAL: Non focal. Normal speech, gait not observed. PSYCH: Normal mood, normal affect. SKIN: Warm, dry, normal turgor, no rashes. Dressing applied on right arm. Laboratory Results - last 24 hr 06/10/18 13:34 Troponin I 0.15 H Active Medications Generic Name Dose Route Start Last Admin Trade Name Freq PRN Reason Stop Dose Admin Acetaminophen 650 mg 06/11/18 10:26 06/11/18 11:53 Tylenol - PO 650 mg Q6H PRN Administration PAIN LEVEL 1-5 Amlodipine Besylate 10 mg 06/12/18 10:00 Norvasc - PO DAILY STEVE Aspirin 81 mg 06/11/18 11:15 06/11/18 11:36 Ecotrin - PO 81 mg DAILY STEVE Administration Calcium Acetate 667 mg 06/11/18 12:01 Phoslo - PO TIDCM STEVE Doxazosin Mesylate 2 mg 06/11/18 22:00 Cardura - PO BID STEVE Sodium Chloride 1,000 mls @ 42 mls/hr 06/11/18 10:00 06/11/18 11:37 Normal Saline - IV 42 mls/hr ASDIR STEVE Administration Sodium Chloride 250 mls @ 3,000 mls/hr 06/11/18 10:26 Normal Saline - IV 06/11/18 14:24 PRN PRN Hypotension during Dialysis ASSESSMENT/PLAN: The patient is a 72 year old male with a PMHx of ESRD on HD (MWF), last dialysis on 06/07/18, CVA (no residual defects), HTN, presented to the hospital after he had bleeding from fistula in right arm. Elevated troponin: -the patient has been complaining of cough for a week, likely demand ischemia, normalized -EKG reviewed, -cardiology Dr Abdi consulted -cardiac monitoring on telemetry stopped -ECHO ordered -flu swab, rsv-pending s/p bleeding from right fistula: -stent placed today by Vascular Surgery -no complications Fever: -unknown source -will follow up blood cutures, urine cultures -CXR done -Tylenol for fever HTN urgency: -monitored -cont Cardura and Norvasc ESRD: HD yesterday F/E/N: no/no changes/Renal/low Na diet Dispo: transferred to med surg Problem List - Problems (1) Anemia in ESRD (end-stage renal disease) Code(s): N18.6 - END STAGE RENAL DISEASE; D63.1 - ANEMIA IN CHRONIC KIDNEY DISEASE (2) Bleeding from dialysis shunt Code(s): T82.838A - HEMORRHAGE DUE TO VASCULAR PROSTH DEV/GRFT, INIT (3) Cough Code(s): R05 - COUGH (4) Dialysis AV fistula malfunction Code(s): T82.590A - MECH COMPL OF SURGICALLY CREATED ARTERIOVENOUS FISTULA, INIT (5) HTN (hypertension) Code(s): I10 - ESSENTIAL (PRIMARY) HYPERTENSION Visit type - Emergency Visit Emergency Visit: Yes ED Registration Date: 06/10/18 Care time: The patient presented to the Emergency Department on the above date and was hospitalized for further evaluation of their emergent condition. - New Patient This patient is new to me today: No - Critical Care Critical Care patient: No
--- NOTE | 2018-06-11 14:33 | EKG ---
Test Reason : Blood Pressure : / mmHG Vent. Rate : 093 BPM Atrial Rate : 093 BPM P-R Int : 216 ms QRS Dur : 110 ms QT Int : 382 ms P-R-T Axes : 000 -56 098 degrees QTc Int : 474 ms SINUS RHYTHM WITH SINUS ARRHYTHMIA WITH 1ST DEGREE A-V BLOCK LEFT ANTERIOR FASCICULAR BLOCK MINIMAL VOLTAGE CRITERIA FOR LVH, MAY BE NORMAL VARIANT ABNORMAL QRS-T ANGLE, CONSIDER PRIMARY T WAVE ABNORMALITY ABNORMAL ECG WHEN COMPARED WITH ECG OF 08-APR-2017 09:43, T WAVE INVERSION LESS EVIDENT IN ANTEROLATERAL LEADS Confirmed by MD BHAVESH, GARY ([id number]) on 06/11/2018 2:33:15 PM Referred By: Confirmed By:GARY OSPINA MD
--- NOTE | 2018-06-11 15:00 | PN ---
Teaching Attending Note Name of Resident: Zina Chapman ATTENDING PHYSICIAN STATEMENT I saw and evaluated the patient. I reviewed the resident's note and discussed the case with the resident. I agree with the resident's findings and plan as documented with exceptions below. SUBJECTIVE: Patient seen and examined. just returned from OR, reports left shoulder pain more with movements. Denies complaints otherwise. Wants to sleep. OBJECTIVE: Vital Signs Period Temp Pulse Resp BP Sys/Mckinley Pulse Ox Last 24 Hr 98.2 F-101.2 F 72-101 16-220 94-166/50-97 92-99 Intake & Output 06/08/18 06/09/18 06/10/18 06/11/18 23:59 23:59 23:59 23:59 Intake Total 200 450 Output Total 0 10 Balance 200 440 Weight 166 lb 172 lb 11.2 oz General: sitting in bed, no acute distress Chest: poor effort, decreased air entry, no rales or wheezing appreciated but markedly limited exam given lack of full effort Abdomen:soft, NT, ND, positive bowel sounds Extremities: no edema, right AV fistula site with no active bleed or discharge Home Medications Medication Instructions Recorded Amlodipine Besylate [Norvasc -] 10 mg PO DAILY 03/29/14 Calcium Acetate [Phoslo] 2 tab PO TID 03/29/14 Doxazosin Mesylate [Cardura -] 2 mg PO BID 03/29/14 Aspirin Coated [Ecotrin -] 81 mg PO DAILY #30 tab 06/09/16 Active Medications Acetaminophen (Tylenol -) 650 mg PO Q6H PRN PRN Reason: PAIN LEVEL 1-5 Last Admin: 06/11/18 11:53 Dose: 650 mg Amlodipine Besylate (Norvasc -) 10 mg PO DAILY STEVE Aspirin (Ecotrin -) 81 mg PO DAILY STEVE Last Admin: 06/11/18 11:36 Dose: 81 mg Calcium Acetate (Phoslo -) 667 mg PO TIDCM STEVE Doxazosin Mesylate (Cardura -) 2 mg PO BID STEVE Sodium Chloride (Normal Saline -) 1,000 mls @ 42 mls/hr IV ASDIR STEVE Last Admin: 06/11/18 11:37 Dose: 42 mls/hr Sodium Chloride (Normal Saline -) 250 mls @ 3,000 mls/hr IV PRN PRN PRN Reason: Hypotension during Dialysis Stop: 06/11/18 14:24 Laboratory Results - last 24 hr 06/11/18 06/11/18 13:37 13:37 Influenza A (Rapid) Negative Influenza B (Rapid) Negative RSV Rapid Negative CXR images reviewed, decreased effort ASSESSMENT AND PLAN: 72 yom with PMhx of ESRD on HD, HTN, CVA with no residual deficits admitted with bleeding Av fistula and elevated troponin. -Bleeding AV fistula s/p hemostasis, s/p Right arm venogram/Stent placement -Uncontrolled HTN vs erroneous BP reading (Patient reports reliable BP only in HD, given unable to check in upper extremities, and LE check unreliable) -Elevated troponin, suspect demand mediated vs from renal dysfunction -Post op fevers, atelectasis, r/o infectious process -Hypoxia, suspect from atelectasis/poor effort, r/o infection -left shoulder pain post surgery -Cough, ?URI like illness -HTN -ESRD on HD Plan: Post op fevers highly suspicious for atelectasis based on current exam. Also patient with recent recovering URI like illness. r/o PNA CXR. Blood cx, Incentive spirometry, monitor closely. Left shoulder xray. Tn flat. 2D echo noted, cardiology input appreciated. Patient presentation, current biomarkers not suggestive of ACS Nephrology input noted, monitor BP in HD. Conitnue doxazocin and amlodipine. Resume ASA per vascular surgery DVTPPX SCDs Dispo plan for d/c in 24 hours if no further fevers and feeling well. Discussed with patient and at bedside in detail, all questions answered. Care co-ordinated with ED, nephrology and cardiology.
--- NOTE | 2018-06-11 15:27 | PN ---
Progress Note (short form) - Note Progress Note: s: no cp sob palps dizzy o: Vital Signs Period Temp Pulse Resp BP Sys/Mckinley Pulse Ox Last 24 Hr 98.2 F-101.2 F 72-101 16-220 94-166/50-97 92-99 Constitutional: Yes: No Distress, Calm Eyes: Yes: Conjunctiva Clear Neck: Yes: Supple, Trachea Midline Respiratory: Yes: Regular, CTA Bilaterally Gastrointestinal: Yes: Normal Bowel Sounds, Soft Cardiovascular: Yes: Regular Rate and Rhythm JVD: No Heart Sounds: Yes: S1, S2 Murmur: No: Systolic Murmur Musculoskeletal: No: Back Pain Edema: No Peripheral Pulses: 1+ Left Doralis Pedis, 1+ Right Dorsalis Pedis Integumentary: No: Jaundice Neurological: Yes: Alert, Oriented Psychiatric: No: Agitated Current Medications Generic Name Dose Route Start Last Admin Trade Name Freq PRN Reason Stop Dose Admin Acetaminophen 650 mg 06/11/18 10:26 06/11/18 11:53 Tylenol - PO 650 mg Q6H PRN Administration PAIN LEVEL 1-5 Amlodipine Besylate 10 mg 06/12/18 10:00 Norvasc - PO DAILY STEVE Aspirin 81 mg 06/11/18 11:15 06/11/18 11:36 Ecotrin - PO 81 mg DAILY STEVE Administration Calcium Acetate 667 mg 06/11/18 12:01 Phoslo - PO TIDCM STEVE Doxazosin Mesylate 2 mg 06/11/18 22:00 Cardura - PO BID STEVE Sodium Chloride 1,000 mls @ 42 mls/hr 06/11/18 10:00 06/11/18 11:37 Normal Saline - IV 42 mls/hr ASDIR STEVE Administration Sodium Chloride 250 mls @ 3,000 mls/hr 06/11/18 10:26 Normal Saline - IV 06/11/18 14:24 PRN PRN Hypotension during Dialysis CBC, BMP 06/10/18 08:48 06/10/18 08:48 Assessment/Plan echo 2016 mild conc LVH, nl LV/RV function, redundant MV chordae echo 05/2018: mild dec lvef, global hk, nl rv, mild mr, mod tr, mild ar, mild pr , rvsp 60 CXR: no acute process elevated trop - 0.11->0.15, indeterminate range, flat trend - history, EKG not c/w ACS, no chest pain - likely demand in setting of ESRD HTN - continue current meds ESRD - on HD, renal consulted - bleeding from fistula - vascular consulted CVA - holding aspirin in setting of bleeding from fistula cardiomyopathy: -echo here showing mild dec lvef, new frmo 2017 echo -cont vol management with HD -would repeat echo as outpt after acute issues resolved
--- NOTE | 2018-06-11 15:34 | PN ---
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 had shoulder pain s/p procedure no cp, sob, abd pain s/p dialysis yesterday Vital Signs Temperature 99.4 F 06/11/18 14:41 Pulse Rate 92 H 06/11/18 14:00 Respiratory Rate 20 06/11/18 14:00 Blood Pressure 139/78 06/11/18 14:00 O2 Sat by Pulse Oximetry (%) 93 L 06/11/18 13:49 Intake & Output 06/08/18 06/09/18 06/10/18 06/11/18 23:59 23:59 23:59 23:59 Intake Total 200 450 Output Total 0 10 Balance 200 440 Weight 75.296 kg 78.335 kg NAD RRR, no M/R CTA soft NT/ND no LE edema CBC, BMP 06/10/18 08:48 06/10/18 08:48 Current Medications Acetaminophen (Tylenol -) 650 mg PO Q6H PRN PRN Reason: PAIN LEVEL 1-5 Last Admin: 06/11/18 11:53 Dose: 650 mg Amlodipine Besylate (Norvasc -) 10 mg PO DAILY [facility] Aspirin (Ecotrin -) 81 mg PO DAILY [facility] Last Admin: 06/11/18 11:36 Dose: 81 mg Calcium Acetate (Phoslo -) 667 mg PO TIDCM [facility] Doxazosin Mesylate (Cardura -) 2 mg PO BID [facility] Heparin Sodium (Porcine) (Heparin -) 500 unit IVPUSH ONCE ONE Stop: 06/12/18 06:01 Heparin Sodium (Porcine) (Heparin -) 500 unit IVPUSH Q1H [facility] Stop: 06/12/18 07:01 Sodium Chloride (Normal Saline -) 1,000 mls @ 42 mls/hr IV ASDIR [facility] Last Admin: 06/11/18 11:37 Dose: 42 mls/hr Sodium Chloride (Normal Saline -) 250 mls @ 3,000 mls/hr IV PRN PRN PRN Reason: Hypotension during Dialysis Stop: 06/11/18 14:24 Sodium Chloride (Normal Saline -) 250 mls @ 3,000 mls/hr IV PRN PRN PRN Reason: Hypotension during Dialysis Stop: 06/12/18 15:26 72 year old gentleman with hx of ESRD on HD (MWF), CVA, hypertension who presented with bleeding from AVF site. #ESRD on HD #Bleeding from AVF site r/o stenosis #Metabolic acidosis #Hypertension #Elevated troponin level s/p vascular intervention f/u x-ray results for HD tomorrow via AVF Renal diet continue cardura and amlodpine Thank you Gerard Trejo DO
[2018-06-11 16:25] LABS: BASO % 0.3 % (0-2.0); EOS % 0.1 % (0-4.5); HEMATOCRIT 31.7 % (35.4-49); HEMOGLOBIN 10.6 GM/dL (11.7-16.9); LYMPH % 4.9 % (8-40); MCHC 33.4 g/dl (32.0-35.9); MEAN CELL VOLUME 98.9 fl (80-96); MEAN PLT VOLUME 8.6 fl (7.5-11.1); MONO % 16.8 % (3.8-10.2); NEUT % 77.9 % (42.8-82.8); RDW 14.6 % (11.9-15.9); WHITE BLOOD COUNT 8.7 K/mm3 (4.0-10.0)
[2018-06-11 17:08] LABS: ALK PHOS 66 U/L (45-117); ANION GAP 11 MMOL/L (8-16); BILIRUBIN,TOTAL 1.4 mg/dL (0.2-1); BLOOD UREA NITROGEN 39 mg/dL (7-18); CALCIUM 7.5 mg/dL (8.5-10.1); CHLORIDE 98 mmol/L (98-107); CO2 27 mmol/L (21-32); GLUCOSE,RANDOM 101 mg/dL (74-106); MAGNESIUM 1.7 mg/dL (1.8-2.4); PHOSPHOROUS 2.4 mg/dL (2.5-4.9); POTASSIUM 3.7 mmol/L (3.5-5.1); SGOT/AST 41 U/L (15-37); SGPT/ALT 27 U/L (13-61); SODIUM 136 mmol/L (136-145); TOT PROT 6.4 g/dl (6.4-8.2)
[2018-06-11 17:13] LABS: CREATININE 8.2 mg/dL (0.55-1.3)
[2018-06-11 19:39] LABS: PLATELET COUNT 100 K/MM3 (134-434)
[2018-06-12] MEDS: CALCIUM ACETATE 667 MG CAPSULE (FP) PO SCH ×3 (09:14→17:16)
[2018-06-12] MEDS: HEPARIN NA (PORCINE) 5,000 UNITS/ML 1ML VIAL IVPUSH SCH ×2 (09:20→10:20)
--- NOTE | 2018-06-12 09:36 | PN ---
Progress Note (short form) - Note Progress Note: 72yo M s/p Rt arm fistulagram s/p central venous stent. Pt seen and examined in dialysis, where pt was about to start dialysis. Pt denies any pain or swelling in his Rt arm. Last Vital Signs Temp Pulse Resp BP Pulse Ox 98.1 F 85 18 126/93 94 L 06/12/18 08:05 06/12/18 08:20 06/12/18 08:20 06/12/18 08:20 06/12/18 05:00 CBC, BMP 06/11/18 15:20 06/11/18 15:20 PE: Gen: A&O x3 Resp: breathing comfortably RUE: AV fistula shows palpable thrill, ulceration noted on anterior surface of fistula, no active bleeding some serous oozing, no pus, tissue appears intact. No edema. Problem List - Problems (1) Dialysis AV fistula malfunction Assessment/Plan: Plan -will see how HD goes today, if no issues pt can follow up with Dr. Mello as outpatient in 1 week -Avoid ulceration site during dialysis -recommend bacitracin and tegaderm over ulcer site -discharge per medicine/renal Code(s): T82.590A - [facility] COMPL OF SURGICALLY CREATED ARTERIOVENOUS FISTULA, INIT
[2018-06-12] MEDS ORDERED: SODIUM CHLORIDE 250 ML IV PRN (10:00)
[2018-06-12] MEDS ORDERED: ASPIRIN COATED 81 MG TABLET.EC PO SCH (10:00)
[2018-06-12] MEDS ORDERED: HEPARIN NA (PORCINE) 5,000 UNITS/ML 1ML VIAL IVPUSH ONE (10:50)
--- NOTE | 2018-06-12 13:11 | PN ---
Progress Note (short form) - Note Progress Note: Renal follow up for ESRD on HD Pt seen and examined at the bedside s/p Hd this am tolerated it well dialysis nurse concerned regarding skin over AVF site pt w/o any acute complaints Vital Signs Temperature 98.9 F 06/12/18 12:24 Pulse Rate 93 H 06/12/18 12:24 Respiratory Rate 18 06/12/18 12:24 Blood Pressure 108/57 L 06/12/18 12:24 O2 Sat by Pulse Oximetry (%) 94 L 06/12/18 05:00 Intake & Output 06/09/18 06/10/18 06/11/18 06/12/18 23:59 23:59 23:59 23:59 Intake Total 200 570 0 Output Total 0 10 Balance 200 560 0 Weight 75.296 kg 78.335 kg 74.021 kg NAD RRR, no M/R CTA soft NT/ND no LE edema CBC, BMP 06/11/18 15:20 06/11/18 15:20 Current Medications Acetaminophen (Tylenol -) 650 mg PO Q6H PRN PRN Reason: PAIN LEVEL 1-5 Last Admin: 06/11/18 11:53 Dose: 650 mg Amlodipine Besylate (Norvasc -) 10 mg PO DAILY [facility] Aspirin (Ecotrin -) 81 mg PO DAILY [facility] Last Admin: 06/11/18 11:36 Dose: 81 mg Calcium Acetate (Phoslo -) 667 mg PO TIDCM [facility] Last Admin: 06/12/18 09:14 Dose: Not Given Doxazosin Mesylate (Cardura -) 2 mg PO BID [facility] Last Admin: 06/11/18 21:10 Dose: 2 mg Sodium Chloride (Normal Saline -) 1,000 mls @ 42 mls/hr IV ASDIR [facility] Last Admin: 06/11/18 11:37 Dose: 42 mls/hr 72 year old gentleman with hx of ESRD on HD (MWF), CVA, hypertension who presented with bleeding from AVF site. #ESRD on HD #Bleeding from AVF site r/o stenosis #Metabolic acidosis #Hypertension #Elevated troponin level tolerated HD well skin over upper portion of AVF with some breakdown but no signs of infection that area will need to be avoided when access is cannulated discharge planning as per primary Thank you Gerard Trejo DO
[2018-06-12 13:13] LABS: HEMATOCRIT 31.3 % (35.4-49); HEMOGLOBIN 10.4 GM/dL (11.7-16.9); MCH 32.5 pg (25.7-33.7); MCHC 33.2 g/dl (32.0-35.9); MEAN CELL VOLUME 97.9 fl (80-96); MEAN PLT VOLUME 9.1 fl (7.5-11.1); PLATELET COUNT 111 K/MM3 (134-434); RDW 14.4 % (11.9-15.9); WHITE BLOOD COUNT 9.2 K/mm3 (4.0-10.0)
[2018-06-12] MEDS: DOXAZOSIN MESYLATE 2 MG TABLET (FP) PO SCH ×2 (13:18→22:47)
[2018-06-12] MEDS: amLODIPine BESYLATE 10 MG TABLET (FP) PO SCH (13:18)
[2018-06-12] MEDS: ASPIRIN COATED 81 MG TABLET.EC PO SCH (13:18)
[2018-06-12 13:24] LABS: ANION GAP 12 MMOL/L (8-16); BLOOD UREA NITROGEN 47 mg/dL (7-18); CALCIUM 7.3 mg/dL (8.5-10.1); CHLORIDE 98 mmol/L (98-107); CO2 24 mmol/L (21-32); GLUCOSE,RANDOM 136 mg/dL (74-106); POTASSIUM 3.9 mmol/L (3.5-5.1); SODIUM 134 mmol/L (136-145)
[2018-06-12 13:32] LABS: CREATININE 9.6 mg/dL (0.55-1.3)
--- NOTE | 2018-06-12 14:14 | PN ---
Teaching Attending Note Name of Resident: Zina Chapman ATTENDING PHYSICIAN STATEMENT I saw and evaluated the patient. I reviewed the resident's note and discussed the case with the resident. I agree with the resident's findings and plan as documented with exceptions below. SUBJECTIVE: patient seen and examined, feels, weak, pos cough, no new complaints. OBJECTIVE: Vital Signs Period Temp Pulse Resp BP Sys/Mckinley Pulse Ox Last 24 Hr 98.1 F-99.4 F 65-104 18-20 95-148/57-99 94-95 Intake & Output 06/09/18 06/10/18 06/11/18 06/12/18 23:59 23:59 23:59 23:59 Intake Total 200 570 0 Output Total 0 10 Balance 200 560 0 Weight 166 lb 172 lb 11.2 oz 163 lb 3 oz General: sitting in bed, weak looking but no acute distress Chest: poor effort, few basilar rales Abdomen:Soft, obese, NT Extremities: trace pedal edema Home Medications Medication Instructions Recorded Amlodipine Besylate [Norvasc -] 10 mg PO DAILY 03/29/14 Calcium Acetate [Phoslo] 2 tab PO TID 03/29/14 Doxazosin Mesylate [Cardura -] 2 mg PO BID 03/29/14 Aspirin Coated [Ecotrin -] 81 mg PO DAILY #30 tab 06/09/16 Amoxicillin/Potassium Clav 1 each PO BID 7 Days #14 tablet 06/12/18 [Augmentin 875-125 Tablet] Active Medications Acetaminophen (Tylenol -) 650 mg PO Q6H PRN PRN Reason: PAIN LEVEL 1-5 Last Admin: 06/11/18 11:53 Dose: 650 mg Amlodipine Besylate (Norvasc -) 10 mg PO DAILY [facility] Last Admin: 06/12/18 13:18 Dose: 10 mg Aspirin (Ecotrin -) 81 mg PO DAILY [facility] Last Admin: 06/12/18 13:18 Dose: 81 mg Calcium Acetate (Phoslo -) 667 mg PO TIDCM [facility] Last Admin: 06/12/18 13:18 Dose: 667 mg Doxazosin Mesylate (Cardura -) 2 mg PO BID [facility] Last Admin: 06/12/18 13:18 Dose: 2 mg Sodium Chloride (Normal Saline -) 1,000 mls @ 42 mls/hr IV ASDIR [facility] Last Admin: 06/11/18 11:37 Dose: 42 mls/hr Azithromycin (Zithromax 500mg Ivpb (Pre-Docked)) 500 mg in 250 mls @ 250 mls/ hr IVPB DAILY [facility] Ceftriaxone Sodium 1 gm/ (Dextrose) 100 mls @ 200 mls/hr IVPB DAILY [facility]; Protocol Laboratory Results - last 24 hr 06/10/18 06/11/18 06/11/18 16:40 13:37 13:37 WBC RBC Hgb Hct MCV MCH MCHC RDW Plt Count MPV Absolute Neuts (auto) Neutrophils % Lymphocytes % Monocytes % Eosinophils % Basophils % Nucleated RBC % Sodium Potassium Chloride Carbon Dioxide Anion Gap BUN Creatinine Creat Clearance w eGFR Random Glucose Calcium Phosphorus Magnesium Total Bilirubin AST ALT Alkaline Phosphatase Total Protein Albumin Hep C Ab Diagnostic 0.1 Influenza A (Rapid) Negative Influenza B (Rapid) Negative RSV Rapid Negative 06/11/18 06/11/18 06/12/18 15:20 15:20 08:30 WBC 8.7 RBC 3.20 L Hgb 10.6 L Hct 31.7 L MCV 98.9 H MCH 33.0 MCHC 33.4 RDW 14.6 Plt Count 100 L MPV 8.6 Absolute Neuts (auto) 6.8 Neutrophils % 77.9 Lymphocytes % 4.9 L D Monocytes % 16.8 H Eosinophils % 0.1 Basophils % 0.3 Nucleated RBC % 0 Sodium 136 134 L Potassium 3.7 3.9 Chloride 98 98 Carbon Dioxide 27 24 Anion Gap 11 12 BUN 39 H 47 H Creatinine 8.2 H* 9.6 H* Creat Clearance w eGFR 6.48 5.40 Random Glucose 101 136 H Calcium 7.5 L 7.3 L Phosphorus 2.4 L Magnesium 1.7 L Total Bilirubin 1.4 H AST 41 H ALT 27 Alkaline Phosphatase 66 Total Protein 6.4 Albumin 3.0 L Hep C Ab Diagnostic Influenza A (Rapid) Influenza B (Rapid) RSV Rapid 06/12/18 08:30 WBC 9.2 RBC 3.20 L Hgb 10.4 L Hct 31.3 L MCV 97.9 H MCH 32.5 MCHC 33.2 RDW 14.4 Plt Count 111 L MPV 9.1 Absolute Neuts (auto) Neutrophils % Lymphocytes % Monocytes % Eosinophils % Basophils % Nucleated RBC % Sodium Potassium Chloride Carbon Dioxide Anion Gap BUN Creatinine Creat Clearance w eGFR Random Glucose Calcium Phosphorus Magnesium Total Bilirubin AST ALT Alkaline Phosphatase Total Protein Albumin Hep C Ab Diagnostic Influenza A (Rapid) Influenza B (Rapid) RSV Rapid CXR images and results reviewed ASSESSMENT AND PLAN: 72 yom with PMhx of ESRD on HD, HTN, CVA with no residual deficits admitted with bleeding Av fistula and elevated troponin. -Suspected LLL PNA with sepsis -Bleeding AV fistula s/p hemostasis, s/p Right arm venogram/Stent placement -Uncontrolled HTN vs erroneous BP reading (Patient reports reliable BP only in HD, given unable to check in upper extremities, and LE check unreliable) -Elevated troponin, suspect demand mediated vs from renal dysfunction -left shoulder pain post surgery -HTN -ESRD on HD Plan: post op fevers, now hypoxic, CXR with ?LLL infiltrate. Looks weak today. Recent cough x 1 week. Concern for PNA+/- post op atelectasis. Will place on ceftriaxone/azithromcyin, CT chest. Follow up blood cx. Add Sputum cx. Influenza/RSV neg. Incentive spirometry. Left AV fistula care/plan per Dr Mello. Tn flat. 2D echo noted, cardiology input appreciated. Patient presentation, current biomarkers not suggestive of ACS Nephrology input noted, monitor BP in HD. (unreliable BP on floors as unable to check in upper extremities, per patient only reliable BP with HD) Conitnue doxazocin and amlodipine. Resume ASA per vascular surgery [id number] SCDs Dispo hold off on dc given fevers, hypoxia, weakness and concerns for LLL infiltrate. Discussed with patient, all questions answered.
--- NOTE | 2018-06-12 14:20 | PN ---
Physical Exam: SUBJECTIVE: Patient seen and examined. he is feeling tired and still complaining of cough. OBJECTIVE: Vital Signs Period Temp Pulse Resp BP Sys/Mckinley Pulse Ox Last 24 Hr 98.1 F-99.4 F 65-104 18-20 95-148/57-99 94-95 GENERAL: The patient is awake, alert, and fully oriented, in no acute distress. HEAD: Normal with no signs of trauma. EYES: Extraocular movements intact, conjunctiva clear. ENT: Oropharynx clear without exudates, moist mucous membranes. NECK: Trachea midline, full range of motion, supple. LUNGS: Breath sounds equal, clear to auscultation bilaterally, no wheezes, no crackles HEART: Regular rate and rhythm, S1, S2 without murmur, rub or gallop. ABDOMEN: Soft, nontender, nondistended, normoactive bowel sounds. EXTREMITIES: 2+ pulses, warm, no edema. NEUROLOGICAL: Non focal. Normal speech, gait not observed. PSYCH: Normal mood, normal affect. SKIN: Warm, dry, normal turgor, no rashes. Dressing applied on right arm. Laboratory Results - last 24 hr 06/10/18 06/11/18 06/11/18 16:40 13:37 13:37 WBC RBC Hgb Hct MCV MCH MCHC RDW Plt Count MPV Absolute Neuts (auto) Neutrophils % Lymphocytes % Monocytes % Eosinophils % Basophils % Nucleated RBC % Sodium Potassium Chloride Carbon Dioxide Anion Gap BUN Creatinine Creat Clearance w eGFR Random Glucose Calcium Phosphorus Magnesium Total Bilirubin AST ALT Alkaline Phosphatase Total Protein Albumin Hep C Ab Diagnostic 0.1 Influenza A (Rapid) Negative Influenza B (Rapid) Negative RSV Rapid Negative 06/11/18 06/11/18 06/12/18 15:20 15:20 08:30 WBC 8.7 RBC 3.20 L Hgb 10.6 L Hct 31.7 L MCV 98.9 H MCH 33.0 MCHC 33.4 RDW 14.6 Plt Count 100 L MPV 8.6 Absolute Neuts (auto) 6.8 Neutrophils % 77.9 Lymphocytes % 4.9 L D Monocytes % 16.8 H Eosinophils % 0.1 Basophils % 0.3 Nucleated RBC % 0 Sodium 136 134 L Potassium 3.7 3.9 Chloride 98 98 Carbon Dioxide 27 24 Anion Gap 11 12 BUN 39 H 47 H Creatinine 8.2 H* 9.6 H* Creat Clearance w eGFR 6.48 5.40 Random Glucose 101 136 H Calcium 7.5 L 7.3 L Phosphorus 2.4 L Magnesium 1.7 L Total Bilirubin 1.4 H AST 41 H ALT 27 Alkaline Phosphatase 66 Total Protein 6.4 Albumin 3.0 L Hep C Ab Diagnostic Influenza A (Rapid) Influenza B (Rapid) RSV Rapid 06/12/18 08:30 WBC 9.2 RBC 3.20 L Hgb 10.4 L Hct 31.3 L MCV 97.9 H MCH 32.5 MCHC 33.2 RDW 14.4 Plt Count 111 L MPV 9.1 Absolute Neuts (auto) Neutrophils % Lymphocytes % Monocytes % Eosinophils % Basophils % Nucleated RBC % Sodium Potassium Chloride Carbon Dioxide Anion Gap BUN Creatinine Creat Clearance w eGFR Random Glucose Calcium Phosphorus Magnesium Total Bilirubin AST ALT Alkaline Phosphatase Total Protein Albumin Hep C Ab Diagnostic Influenza A (Rapid) Influenza B (Rapid) RSV Rapid Active Medications Generic Name Dose Route Start Last Admin Trade Name Freq PRN Reason Stop Dose Admin Acetaminophen 650 mg 06/11/18 10:26 06/11/18 11:53 Tylenol - PO 650 mg Q6H PRN Administration PAIN LEVEL 1-5 Amlodipine Besylate 10 mg 06/12/18 10:00 06/12/18 13:18 Norvasc - PO 10 mg DAILY [facility] Administration Aspirin 81 mg 06/11/18 11:15 06/12/18 13:18 Ecotrin - PO 81 mg DAILY [facility] Administration Bacitracin 1 applic 06/12/18 14:15 Bacitracin - TP DAILY [facility] Calcium Acetate 667 mg 06/11/18 12:01 06/12/18 13:18 Phoslo - PO 667 mg TIDCM [facility] Administration Doxazosin Mesylate 2 mg 06/11/18 22:00 06/12/18 13:18 Cardura - PO 2 mg BID [facility] Administration Sodium Chloride 1,000 mls @ 42 mls/hr 06/11/18 10:00 06/11/18 11:37 Normal Saline - IV 42 mls/hr ASDIR [facility] Administration Azithromycin 500 mg in 250 mls @ 250 mls/hr 06/12/18 14:15 Zithromax 500mg Ivpb (Pre-Docked) IVPB DAILY [facility] Ceftriaxone Sodium 1 gm/ 50 mls @ 100 mls/hr 06/12/18 14:15 Dextrose IVPB DAILY [facility] Protocol ASSESSMENT/PLAN: The patient is a 72 year old male with a PMHx of ESRD on HD (MWF), last dialysis on 06/07/18, CVA (no residual defects), HTN, presented to the hospital after he had bleeding from fistula in right arm. Hypoxia: -found to be hypoxic to 88% on RA and 95% when on 4 L -ill cover empirically with abx and CT chest -will follow up blood cutures, urine cultures -Tylenol for fever -flu swab, rsv negative Elevated troponin: -EKG reviewed -cardiology Dr Abdi consulted -cardiac monitoring on telemetry stopped -ECHO reviewed s/p bleeding from right fistula: -stent placed by Vascular Surgery -no complications HTN urgency: -stable -cont Cardura and Norvasc ESRD: HD today, removed 1.5 L F/E/N: no/no changes/Renal/low Na diet Dispo: med surg, Discharge planning postponed due to hypoxia Problem List - Problems (1) Anemia in ESRD (end-stage renal disease) Code(s): N18.6 - END STAGE RENAL DISEASE; D63.1 - ANEMIA IN CHRONIC KIDNEY DISEASE (2) Bleeding from dialysis shunt Code(s): T82.838A - HEMORRHAGE DUE TO VASCULAR PROSTH DEV/GRFT, INIT (3) Cough Code(s): R05 - COUGH (4) Dialysis AV fistula malfunction Code(s): T82.590A - [facility] COMPL OF SURGICALLY CREATED ARTERIOVENOUS FISTULA, INIT (5) HTN (hypertension) Code(s): I10 - ESSENTIAL (PRIMARY) HYPERTENSION Visit type - Emergency Visit Emergency Visit: Yes ED Registration Date: 06/10/18 Care time: The patient presented to the Emergency Department on the above date and was hospitalized for further evaluation of their emergent condition. - New Patient This patient is new to me today: No - Critical Care Critical Care patient: No - Discharge Referral Referred to [facility] Med P.C.: No
[2018-06-12] MEDS ORDERED: cefTRIAXone SODIUM 1 GM VIAL ONE (14:29)
[2018-06-12] MEDS ORDERED: DEXTROSE 5%-WATER - 50 ML IVPB ONE (14:30)
[2018-06-12] MEDS: BACITRACIN 15 GM TUBE TOPICAL OINTMENT TP SCH (14:34)
[2018-06-12] MEDS: AZITHROMYCIN IVPB 500 MG/250 ML BAG IVPB SCH (14:35)
[2018-06-12] MEDS: CEFTRIAXONE 1 GM in DEXTROSE 5%-WATER - 50 ML IVPB SCH (14:35)
--- NOTE | 2018-06-12 14:57 | PN ---
Progress Note, Physician Chief Complaint: seen and examined Sitting in chair Denies CP - Current Medication List Current Medications: Active Medications Acetaminophen (Tylenol -) 650 mg PO Q6H PRN PRN Reason: PAIN LEVEL 1-5 Last Admin: 06/11/18 11:53 Dose: 650 mg Amlodipine Besylate (Norvasc -) 10 mg PO DAILY [facility] Last Admin: 06/12/18 13:18 Dose: 10 mg Aspirin (Ecotrin -) 81 mg PO DAILY [facility] Last Admin: 06/12/18 13:18 Dose: 81 mg Bacitracin (Bacitracin -) 1 applic TP DAILY [facility] Last Admin: 06/12/18 14:34 Dose: 1 applic Calcium Acetate (Phoslo -) 667 mg PO TIDCM [facility] Last Admin: 06/12/18 13:18 Dose: 667 mg Doxazosin Mesylate (Cardura -) 2 mg PO BID [facility] Last Admin: 06/12/18 13:18 Dose: 2 mg Sodium Chloride (Normal Saline -) 1,000 mls @ 42 mls/hr IV ASDIR [facility] Last Admin: 06/11/18 11:37 Dose: 42 mls/hr Azithromycin (Zithromax 500mg Ivpb (Pre-Docked)) 500 mg in 250 mls @ 250 mls/ hr IVPB DAILY [facility] Last Admin: 06/12/18 14:35 Dose: 250 mls/hr Ceftriaxone Sodium 1 gm/ (Dextrose) 50 mls @ 100 mls/hr IVPB DAILY [facility]; Protocol Last Admin: 06/12/18 14:35 Dose: 100 mls/hr - Objective Vital Signs: Vital Signs Temperature 98.9 F 06/12/18 12:24 Pulse Rate 102 H 06/12/18 13:57 Respiratory Rate 18 06/12/18 12:24 Blood Pressure 108/57 L 06/12/18 12:24 O2 Sat by Pulse Oximetry (%) 95 06/12/18 13:57 Constitutional: Yes: No Distress Cardiovascular: Yes: Regular Rate and Rhythm Respiratory: Yes: Rhonchi, Other (decreased breath sounds bases, no active wheezing) Gastrointestinal: Yes: Soft Edema: No Neurological: Yes: Alert, Oriented ...Motor Strength: WNL Labs: CBC, BMP 06/12/18 08:30 06/12/18 08:30 INR, PTT INR 1.24 (0.83-1.09) H 06/10/18 08:48 Laboratory Tests 06/10/18 06/10/18 06/12/18 08:48 13:34 08:30 WBC Hgb Plt Count Sodium 134 L Potassium 3.9 BUN 47 H Creatinine 9.6 H* Calcium 7.3 L Troponin I 0.11 H 0.15 H 06/12/18 08:30 WBC 9.2 Hgb 10.4 L Plt Count 111 L Sodium Potassium BUN Creatinine Calcium Troponin I Assessment/Plan Assessment/Plan echo 2016 mild conc LVH, nl LV/RV function, redundant MV chordae echo 05/2018: mild dec lvef, global hk, nl rv, mild mr, mod tr, mild ar, mild pr , rvsp 60 CXR: no acute process 1. Elevated trop: - 0.11->0.15, indeterminate range, flat trend - history, EKG not c/w ACS, no chest pain - likely demand in setting of ESRD/sepsis from PNA. Can consider stress test prior to d/c or as outpatient if adequate f/u can be arranged and patient compliant (if one not done recently) 2. HTN: - continue current meds 3. ESRD: - on HD, renal consulted - Bleeding AV fistula s/p hemostasis, s/p Right arm venogram/Stent placement 4. CVA - resume ASA when feasible from Vascular standpoint. 5. Cardiomyopathy: -echo here showing mild dec lvef, new from echo 2017 -cont vol management with HD -would repeat echo as outpt after acute issues resolved and consider ischemic eval as noted above.
[2018-06-12 15:13] LABS: HBSAG SCREEN Negative (Negative); HEP A AB, IGM Negative (Negative); HEP B CORE AB, TOT Negative (Negative)
[2018-06-13 07:28] LABS: BASO % 0.5 % (0-2.0); EOS % 4.7 % (0-4.5); HEMATOCRIT 31.2 % (35.4-49); HEMOGLOBIN 10.3 GM/dL (11.7-16.9); LYMPH % 8.1 % (8-40); MCH 32.3 pg (25.7-33.7); MCHC 32.9 g/dl (32.0-35.9); MEAN CELL VOLUME 98.4 fl (80-96); MEAN PLT VOLUME 9.6 fl (7.5-11.1); MONO % 15.1 % (3.8-10.2); NEUT % 71.6 % (42.8-82.8); PLATELET COUNT 113 K/MM3 (134-434); RBC 3.17 M/mm3 (4.00-5.60); RDW 14.2 % (11.9-15.9); WHITE BLOOD COUNT 10.9 K/mm3 (4.0-10.0)
[2018-06-13 07:57] LABS: ALBUMIN 2.6 g/dl (3.4-5.0); ALK PHOS 68 U/L (45-117); ANION GAP 11 MMOL/L (8-16); BILIRUBIN,TOTAL 0.8 mg/dL (0.2-1); BLOOD UREA NITROGEN 33 mg/dL (7-18); CHLORIDE 96 mmol/L (98-107); CO2 29 mmol/L (21-32); CREATININE 7.2 mg/dL (0.55-1.3); GLUCOSE,RANDOM 99 mg/dL (74-106); POTASSIUM 3.6 mmol/L (3.5-5.1); SGOT/AST 34 U/L (15-37); SGPT/ALT 14 U/L (13-61); SODIUM 136 mmol/L (136-145); TOT PROT 5.9 g/dl (6.4-8.2)
[2018-06-13 09:04] LABS: CALCIUM 6.8 mg/dL (8.5-10.1)
[2018-06-13] MEDS ORDERED: DEXTROSE 5%-WATER - 50 ML IVPB ONE (09:49)
[2018-06-13] MEDS ORDERED: cefTRIAXone SODIUM 1 GM VIAL ONE (09:49)
[2018-06-13] MEDS: CEFTRIAXONE 1 GM in DEXTROSE 5%-WATER - 50 ML IVPB SCH (09:52)
[2018-06-13] MEDS: BACITRACIN 15 GM TUBE TOPICAL OINTMENT TP SCH (09:53)
[2018-06-13] MEDS: amLODIPine BESYLATE 10 MG TABLET (FP) PO SCH (09:53)
[2018-06-13] MEDS: CALCIUM ACETATE 667 MG CAPSULE (FP) PO SCH ×3 (09:53→17:29)
[2018-06-13] MEDS: AZITHROMYCIN IVPB 500 MG/250 ML BAG IVPB SCH (09:53)
[2018-06-13] MEDS: DOXAZOSIN MESYLATE 2 MG TABLET (FP) PO SCH ×2 (09:53→22:03)
[2018-06-13] MEDS: ASPIRIN COATED 81 MG TABLET.EC PO SCH (09:53)
[2018-06-13] MEDS ORDERED: VANCOMYCIN 1 GM PREMIX - 1 GM/200 ML BAG IVPB ONE (10:30)
--- NOTE | 2018-06-13 12:34 | PN ---
Progress Note (short form) - Note Progress Note: ID CONSULT DICTATED + BC GPCCL R/O STAPH BACTEREMIA/ SEPSIS ? INFECTED R UE AVF THROMBOCYTOPENIA ESRD REPEAT BC PENDING C/S VANCOMYCIN X 1DOSE
--- NOTE | 2018-06-13 13:23 | CONS ---
DATE OF CONSULTATION: DATE OF DICTATION: 06/13/2018 INFECTIOUS DISEASE CONSULTATION The patient is a 72-year-old male history of end-stage renal disease on hemodialysis evaluated for positive blood culture. He was admitted to the hospital on June 10, 2018, after developing bleeding from his right upper extremity fistula. The patient states that he had been coughing excessively for approximately 1 week. In the middle of the night, he developed spontaneous bleeding from the right upper extremity fistula site. Both the patient and his report a large amount of blood loss. He presented to the emergency room where he was admitted. He was seen in consultation by Vascular Surgery. Patient was taken to the operating room where a fistuloplasty was performed and placement of a vascular stent in a stenotic subclavian vein. His course was complicated by solitary temperature spike to 101.2 and hypoxemia. Blood cultures were obtained. He was empirically treated with Zithromax and ceftriaxone. A CAT scan of the chest shows a right lung pulmonary nodule but no evidence of infiltrate. Blood cultures are now positive for gram-positive cocci in clusters in 2 aerobic bottles. The patient denied any signs of infection at the AV fistula site. He reports that he had experienced pain when the fistula was accessed on his regular dialysis session on June 05. He had an uneventful dialysis session on June 07. He denies any erythema at the site although he did complain of pain. No purulent drainage. He denied any fever or chills at home. Past medical history is positive for methicillin-sensitive Staphylococcus aureus bacteremia in 2013 secondary to an infected Permacath. At that time he received an extended course of IV antibiotic therapy. A transesophageal echocardiogram at that time showed a possible mitral valve vegetation. PAST MEDICAL HISTORY: Includes end-stage renal disease on hemodialysis, stroke, hypertension. PAST SURGICAL HISTORY: Status post failed left upper extremity AV fistula, history of Permacath removed, history of right AV fistula. ALLERGIES: RAMIPRIL. MEDICATIONS: Norvasc, Cardizem, Ecotrin, Imodium. SOCIAL HISTORY: Lives at home with his significant other. Nonsmoker. Nondrinker. SYSTEM REVIEW: Neurologic: No loss of consciousness, seizure activity, or focal weakness. Prior history of CVA with no residual deficit. Cardiac: Negative chest pain or palpitations. Respiratory: As per HPI. Gastrointestinal: Negative vomiting or diarrhea. Genitourinary: End-stage renal disease on hemodialysis. LABORATORY DATA: White count 10.9, hematocrit 31.2, platelet count 113. BUN 33, creatinine 7.2. Influenza swab negative. Liver enzymes normal. PHYSICAL EXAMINATION: General: He is out of bed to chair in no acute distress, not acutely toxic appearing. Vital Signs: Temperature 99.6, blood pressure 106/51, pulse 91 regular, respirations 20 per minute. Eyes: Sclerae anicteric. Heart: Sounds S1, S2. No murmur. Lungs: Clear. No rales, rhonchi, or wheezing. Abdomen: Soft. No tenderness elicited. No mass, rebound, or rigidity. Extremities: One plus edema. AV fistula present in the right upper extremity and no erythema or warmth noted. No drainage. IMPRESSION: 1. Positive blood cultures, gram-positive cocci in clusters, rule out Staphylococcus bacteremia/sepsis. 2. Possible infected right upper extremity arteriovenous fistula. 3. Thrombocytopenia possibly secondary to sepsis. 4. End-stage renal disease on hemodialysis. 5. History of methicillin-sensitive Staphylococcus aureus bacteremia. RECOMMENDATIONS: Obtain repeat blood cultures. Will empirically give vancomycin 1 g STAT dose pending identification of blood isolate. Vascular Surgery followup. Thank you for the kind referral. DORA AGRAWAL M.D. [id number]
--- NOTE | 2018-06-13 15:32 | PN ---
Progress Note (short form) - Note Progress Note: s: no chest pain, palps, dizziness, sob Current Medications Acetaminophen (Tylenol -) 650 mg PO Q6H PRN PRN Reason: PAIN LEVEL 1-5 Last Admin: 06/11/18 11:53 Dose: 650 mg Amlodipine Besylate (Norvasc -) 10 mg PO DAILY [facility] Last Admin: 06/13/18 09:53 Dose: 10 mg Aspirin (Ecotrin -) 81 mg PO DAILY [facility] Last Admin: 06/13/18 09:53 Dose: 81 mg Bacitracin (Bacitracin -) 1 applic TP DAILY [facility] Last Admin: 06/13/18 09:53 Dose: 1 applic Calcium Acetate (Phoslo -) 667 mg PO TIDCM [facility] Last Admin: 06/13/18 13:07 Dose: 667 mg Doxazosin Mesylate (Cardura -) 2 mg PO BID [facility] Last Admin: 06/13/18 09:53 Dose: 2 mg Sodium Chloride (Normal Saline -) 1,000 mls @ 42 mls/hr IV ASDIR [facility] Last Admin: 06/11/18 11:37 Dose: 42 mls/hr Azithromycin (Zithromax 500mg Ivpb (Pre-Docked)) 500 mg in 250 mls @ 250 mls/ hr IVPB DAILY [facility] Last Admin: 06/13/18 09:53 Dose: 250 mls/hr Ceftriaxone Sodium 1 gm/ (Dextrose) 50 mls @ 100 mls/hr IVPB DAILY [facility]; Protocol Last Admin: 06/13/18 09:52 Dose: 100 mls/hr Vital Signs Period Temp Pulse Resp BP Sys/Mckinley Pulse Ox Last 24 Hr 99.1 F-99.7 F 86-91 18-20 90-139/51-96 95-95 Constitutional: Yes: No Distress Cardiovascular: Yes: Regular Rate and Rhythm Respiratory: Yes: Rhonchi, Other (decreased breath sounds bases, no active wheezing) Gastrointestinal: Yes: Soft Edema: No Neurological: Yes: Alert, Oriented no jaundice not agitated Assessment/Plan echo 2016 mild conc LVH, nl LV/RV function, redundant MV chordae echo 05/2018: mild dec lvef, global hk, nl rv, mild mr, mod tr, mild ar, mild pr , rvsp 60 CXR: no acute process 1. Elevated trop: - 0.11->0.15, indeterminate range, flat trend - history, EKG not c/w ACS, no chest pain - likely demand in setting of ESRD/sepsis from PNA. Can consider stress test prior to d/c or as outpatient if adequate f/u can be arranged and patient compliant (if one not done recently) 2. HTN: - continue current meds 3. ESRD: - on HD, renal consulted - Bleeding AV fistula s/p hemostasis, s/p Right arm venogram/Stent placement 4. CVA - resume ASA when feasible from Vascular standpoint. 5. Cardiomyopathy: -echo here showing mild dec lvef, new from echo 2017 -cont vol management with HD -would repeat echo as outpt after acute issues resolved and consider ischemic eval as noted above.
--- NOTE | 2018-06-13 17:01 | PN ---
Progress Note (short form) - Note Progress Note: Renal follow up for ESRD on HD Pt seen and examined at the bedside awake and alert no acute complaints no fever, chills, sob, abd pain, CP Vital Signs Temperature 99.3 F 06/13/18 14:00 Pulse Rate 88 06/13/18 14:00 Respiratory Rate 20 06/13/18 14:00 Blood Pressure 103/73 06/13/18 14:00 O2 Sat by Pulse Oximetry (%) 95 06/13/18 10:00 Intake & Output 06/10/18 06/11/18 06/12/18 06/13/18 23:59 23:59 23:59 23:59 Intake Total 200 032 272 1254 Output Total 0 10 Balance 200 301 703 4003 Weight 75.296 kg 78.335 kg 74.021 kg 74.435 kg NAD RRR, no M/R CTA soft NT/ND no LE edema CBC, BMP 06/13/18 06:00 06/13/18 06:00 Current Medications Acetaminophen (Tylenol -) 650 mg PO Q6H PRN PRN Reason: PAIN LEVEL 1-5 Last Admin: 06/11/18 11:53 Dose: 650 mg Amlodipine Besylate (Norvasc -) 10 mg PO DAILY [facility] Last Admin: 06/13/18 09:53 Dose: 10 mg Aspirin (Ecotrin -) 81 mg PO DAILY [facility] Last Admin: 06/13/18 09:53 Dose: 81 mg Bacitracin (Bacitracin -) 1 applic TP DAILY [facility] Last Admin: 06/13/18 09:53 Dose: 1 applic Calcium Acetate (Phoslo -) 667 mg PO TIDCM [facility] Last Admin: 06/13/18 13:07 Dose: 667 mg Doxazosin Mesylate (Cardura -) 2 mg PO BID [facility] Last Admin: 06/13/18 09:53 Dose: 2 mg Sodium Chloride (Normal Saline -) 1,000 mls @ 42 mls/hr IV ASDIR [facility] Last Admin: 06/11/18 11:37 Dose: 42 mls/hr Azithromycin (Zithromax 500mg Ivpb (Pre-Docked)) 500 mg in 250 mls @ 250 mls/ hr IVPB DAILY [facility] Last Admin: 06/13/18 09:53 Dose: 250 mls/hr Ceftriaxone Sodium 1 gm/ (Dextrose) 50 mls @ 100 mls/hr IVPB DAILY [facility]; Protocol Last Admin: 06/13/18 09:52 Dose: 100 mls/hr 72 year old gentleman with hx of ESRD on HD (MWF), CVA, hypertension who presented with bleeding from AVF site. #ESRD on HD #Bleeding from AVF site r/o stenosis #Metabolic acidosis #Hypertension #Elevated troponin level no acute need for [employer] today, next HD planned for tomorrow continue empiric abx for gram positive bacteremia Check doppler of AVF to ensure there is no fluid collection or abscess blood cultures from 06/12 w/o growth thus far will check vanco level prior to HD will continue LIA with HD Thank you Gerard Trejo DO
--- NOTE | 2018-06-13 19:08 | PN ---
Physical Exam: SUBJECTIVE: Patient seen and examined. The patient is feeling good today, still occasional cough. OBJECTIVE: Vital Signs Period Temp Pulse Resp BP Sys/Mckinley Pulse Ox Last 24 Hr 99.1 F-99.6 F 86-91 18-20 90-108/51-73 95-95 GENERAL: The patient is awake, alert, and fully oriented, in no acute distress, on NC. HEAD: Normal with no signs of trauma. EYES: Extraocular movements intact, conjunctiva clear. ENT: Oropharynx clear without exudates, moist mucous membranes. NECK: Trachea midline, full range of motion, supple. LUNGS: Breath sounds equal, occasional rhales bilaterally, no wheezes, no crackles HEART: Regular rate and rhythm, S1, S2 without murmur, rub or gallop. ABDOMEN: Soft, nontender, nondistended, normoactive bowel sounds. EXTREMITIES: 2+ pulses, warm, no edema. NEUROLOGICAL: Non focal. Normal speech, gait not observed. PSYCH: Normal mood, normal affect. SKIN: Warm, dry, normal turgor, no rashes. fistula covered with tegaderm in right forearm, no tenderness to palpation, no drainage/bleeding, no pus. Laboratory Results - last 24 hr 06/13/18 06/13/18 06:00 06:00 WBC 10.9 H RBC 3.17 L Hgb 10.3 L Hct 31.2 L MCV 98.4 H MCH 32.3 MCHC 32.9 RDW 14.2 Plt Count 113 L MPV 9.6 Absolute Neuts (auto) 7.8 Neutrophils % 71.6 Lymphocytes % 8.1 D Monocytes % 15.1 H Eosinophils % 4.7 H D Basophils % 0.5 Nucleated RBC % 0 Sodium 136 Potassium 3.6 Chloride 96 L Carbon Dioxide 29 Anion Gap 11 BUN 33 H Creatinine 7.2 H Creat Clearance w eGFR 7.53 Random Glucose 99 Calcium 6.8 L* Total Bilirubin 0.8 AST 34 ALT 14 Alkaline Phosphatase 68 Total Protein 5.9 L Albumin 2.6 L Active Medications Generic Name Dose Route Start Last Admin Trade Name Freq PRN Reason Stop Dose Admin Acetaminophen 650 mg 06/11/18 10:26 06/11/18 11:53 Tylenol - PO 650 mg Q6H PRN Administration PAIN LEVEL 1-5 Amlodipine Besylate 10 mg 06/12/18 10:00 06/13/18 09:53 Norvasc - PO 10 mg DAILY [facility] Administration Aspirin 81 mg 06/11/18 11:15 06/13/18 09:53 Ecotrin - PO 81 mg DAILY [facility] Administration Bacitracin 1 applic 06/12/18 14:15 06/13/18 09:53 Bacitracin - TP 1 applic DAILY [facility] Administration Calcium Acetate 667 mg 06/11/18 12:01 06/13/18 17:29 Phoslo - PO 667 mg TIDCM [facility] Administration Doxazosin Mesylate 2 mg 06/11/18 22:00 06/13/18 09:53 Cardura - PO 2 mg BID [facility] Administration Epoetin Stevie 10,000 unit 06/14/18 06:00 Procrit - IVPUSH 06/14/18 06:01 ONCE ONE Heparin Sodium (Porcine) 500 unit 06/14/18 06:00 Heparin - IVPUSH 06/14/18 06:01 ONCE ONE Heparin Sodium (Porcine) 500 unit 06/13/18 09:00 Heparin - IVPUSH 06/13/18 09:01 Q1H [facility] Sodium Chloride 1,000 mls @ 42 mls/hr 06/11/18 10:00 06/11/18 11:37 Normal Saline - IV 42 mls/hr ASDIR [facility] Administration Azithromycin 500 mg in 250 mls @ 250 mls/hr 06/12/18 14:15 06/13/18 09:53 Zithromax 500mg Ivpb (Pre-Docked) IVPB 250 mls/hr DAILY [facility] Administration Ceftriaxone Sodium 1 gm/ 50 mls @ 100 mls/hr 06/12/18 14:15 06/13/18 09:52 Dextrose IVPB 100 mls/hr DAILY [facility] Administration Protocol Sodium Chloride 250 mls @ 3,000 mls/hr 06/14/18 08:00 Normal Saline - IV 06/14/18 08:01 PRN PRN Hypotension during Dialysis ASSESSMENT/PLAN: The patient is a 72 year old male with a PMHx of ESRD on HD (MWF), last dialysis on 06/07/18, CVA (no residual defects), HTN, presented to the hospital after he had bleeding from fistula in right arm. Hypoxia: -found to be hypoxic, currently n 3 L, not on Oxygen at home -CT chest reviewed -started on Ceftriaxone, Azithromycin, Vanco -cultres pos for g pos cocci -Tylenol for fever -flu swab, rsv negative Elevated troponin: -EKG reviewed -cardiology Dr Abdi consulted -cardiac monitoring on telemetry stopped -ECHO reviewed Lung mass: -new mass on Ct chest -will f/u with Pulmonary s/p bleeding from right fistula: -stent placed by Vascular Surgery -no complications HTN urgency: -stable -cont Cardura and Norvasc ESRD: HD tomorrow -f/u Nephrology recommendations F/E/N: no/no changes/Renal/low Na diet Dispo: med surg Problem List - Problems (1) Anemia in ESRD (end-stage renal disease) Code(s): N18.6 - END STAGE RENAL DISEASE; D63.1 - ANEMIA IN CHRONIC KIDNEY DISEASE (2) Bleeding from dialysis shunt Code(s): T82.838A - HEMORRHAGE DUE TO VASCULAR PROSTH DEV/GRFT, INIT (3) Cough Code(s): R05 - COUGH (4) Dialysis AV fistula malfunction Code(s): T82.590A - [facility] COMPL OF SURGICALLY CREATED ARTERIOVENOUS FISTULA, INIT (5) HTN (hypertension) Code(s): I10 - ESSENTIAL (PRIMARY) HYPERTENSION Visit type - Emergency Visit Emergency Visit: Yes ED Registration Date: 06/12/18 Care time: The patient presented to the Emergency Department on the above date and was hospitalized for further evaluation of their emergent condition. - New Patient This patient is new to me today: No - Critical Care Critical Care patient: No - Discharge Referral Referred to [facility] Med P.C.: No
--- NOTE | 2018-06-13 21:19 | PN ---
Teaching Attending Note Name of Resident: Zina Chapman ATTENDING PHYSICIAN STATEMENT I saw and evaluated the patient. I reviewed the resident's note and discussed the case with the resident. I agree with the resident's findings and plan as documented. SUBJECTIVE: Mr Blackwood says he feels bad because he can't get rest, says doctors keep bothering him. Denies cp, sob, n/v. OBJECTIVE: Gen: nad, obese Pulm: ctab w/o w/r/r CV: rrr w/o m/r/g Abd: +bs, s/nt/nd Ext: no c/c/e ASSESSMENT AND PLAN: -noted to have fevers and positive blood cultures -gram positive cocci in 2/4 bottles -1 dose vancomycin ordered -ID consult -continue current management Problem List - Problems (1) Sepsis Code(s): A41.9 - SEPSIS, UNSPECIFIED ORGANISM (2) Bleeding from dialysis shunt Code(s): T82.838A - HEMORRHAGE DUE TO VASCULAR PROSTH DEV/GRFT, INIT (3) Lung nodule < 6cm on CT Code(s): R91.1 - SOLITARY PULMONARY NODULE (4) ESRD on hemodialysis Code(s): N18.6 - END STAGE RENAL DISEASE; Z99.2 - DEPENDENCE ON RENAL DIALYSIS (5) HTN (hypertension) Code(s): I10 - ESSENTIAL (PRIMARY) HYPERTENSION
[2018-06-14] MEDS ORDERED: HEPARIN NA (PORCINE) 5,000 UNITS/ML 1ML VIAL IVPUSH ONE ×2 (06:00)
[2018-06-14] MEDS ORDERED: EPOETIN ALFA 10,000 UNIT/1 ML VIAL IVPUSH ONE ×2 (06:00→10:45)
[2018-06-14] MEDS ORDERED: SODIUM CHLORIDE 250 ML IV PRN ×2 (08:00)
[2018-06-14 09:02] LABS: HEMATOCRIT 30.1 % (35.4-49); MCH 32.6 pg (25.7-33.7); MCHC 33.3 g/dl (32.0-35.9); MEAN CELL VOLUME 97.8 fl (80-96); MEAN PLT VOLUME 9.7 fl (7.5-11.1); PLATELET COUNT 108 K/MM3 (134-434); RBC 3.07 M/mm3 (4.00-5.60); RDW 14.1 % (11.9-15.9); WHITE BLOOD COUNT 9.4 K/mm3 (4.0-10.0)
[2018-06-14 09:33] LABS: ANION GAP 9 MMOL/L (8-16); BLOOD UREA NITROGEN 47 mg/dL (7-18); CHLORIDE 93 mmol/L (98-107); CO2 28 mmol/L (21-32); GLUCOSE,RANDOM 131 mg/dL (74-106); PHOSPHOROUS 2.2 mg/dL (2.5-4.9); POTASSIUM 3.3 mmol/L (3.5-5.1); SODIUM 130 mmol/L (136-145)
--- NOTE | 2018-06-14 09:56 | OP ---
DATE OF OPERATION: 06/11/2018 SURGEON: Bryce Rogers MD PROCEDURE: Right arm venogram, with placement of central vein stent. PREOPERATIVE DIAGNOSIS: Central vein stenosis. POSTOPERATIVE DIAGNOSIS: Central vein stenosis. ANESTHESIA: Fractional. ANESTHESIOLOGIST: Bushra Almaguer MD OPERATIVE FINDINGS: The right radiocephalic fistula was patent, with multiple areas of dilatation. The proximal cephalic and brachial veins were patent. The distal subclavian vein was patent, with no evidence of stenosis. There was an 80% narrowing at the junction of the subclavian and superior vena cava, as had been seen on previous studies. OPERATIVE PROCEDURE: Following routine patient identification, with side and site verification, intravenous sedation was established. The right arm was prepped with ChloraPrep. A time-out was performed. Then 1% lidocaine was infiltrated over the distal fistula in the right forearm, and the vein was cannulated with a micropuncture needle. A wire was passed proximally, and the needle was exchanged for a 5-Persian catheter. The catheter was then exchanged over the wire for a 7-Persian sheath. Venography was then performed, with the above noted findings. A wire and catheter were passed proximally to the subclavian vein, with repeat imaging to document the stenosis in the subclavian vein. The wire was passed through the area of stenosis. Dilatation of the area with a 12-mm balloon was performed, with no significant improvement. A 14 x 40-mm LifeStar stent was then deployed in the area of stenosis and post dilated with a 16-mm balloon at low pressure. Completion imaging showed a patent vein, with less stenosis through the stent area. The wire and sheath were removed. Bleeding was controlled with a mattress suture of 3-0 nylon on the skin. A sterile dressing was applied. The patient was taken back to the recovery room in stable condition. BRYCE ROGERS M.D. [id number]
[2018-06-14] MEDS: CALCIUM ACETATE 667 MG CAPSULE (FP) PO SCH (10:01)
[2018-06-14 10:08] LABS: CALCIUM 6.6 mg/dL (8.5-10.1); CREATININE 8.7 mg/dL (0.55-1.3)
[2018-06-14] MEDS ORDERED: VANCOMYCIN 1 GRAM (PRE-DOCKED) 1,000 MG/250 ML BAG IVPB ONE (10:36)
[2018-06-14] MEDS: HEPARIN NA (PORCINE) 5,000 UNITS/ML 1ML VIAL IVPUSH SCH ×2 (11:25→11:26)
[2018-06-14] MEDS ORDERED: cefTRIAXone SODIUM 1 GM VIAL ONE (11:56)
[2018-06-14] MEDS ORDERED: DEXTROSE 5%-WATER - 50 ML IVPB ONE (11:56)
[2018-06-14] MEDS: SODIUM CHLORIDE 1,000 ML IV SCH (12:00)
[2018-06-14] MEDS: CEFTRIAXONE 1 GM in DEXTROSE 5%-WATER - 50 ML IVPB SCH (12:01)
[2018-06-14] MEDS: BACITRACIN 15 GM TUBE TOPICAL OINTMENT TP SCH (12:01)
[2018-06-14] MEDS: amLODIPine BESYLATE 10 MG TABLET (FP) PO SCH (12:01)
[2018-06-14] MEDS: ASPIRIN COATED 81 MG TABLET.EC PO SCH (12:01)
[2018-06-14] MEDS: AZITHROMYCIN IVPB 500 MG/250 ML BAG IVPB SCH (12:01)
[2018-06-14] MEDS: DOXAZOSIN MESYLATE 2 MG TABLET (FP) PO SCH ×2 (12:01→22:34)
[2018-06-14] MEDS: CALCITRIOL 0.25 MCG CAPSULE (FP) PO SCH (12:03)
--- NOTE | 2018-06-14 13:59 | PN ---
Progress Note (short form) - Note Progress Note: PULMONARY CONSULTATION DICTATED 06/14/18 IMP RML NODULAR OPACITY ?MALIGNANT ?INFECTIOUS MRSA BACTEREMIA ESRD ON HD HTN S/P CVA R AV FISTULA ANEMIA THROMBOCYTOPENIA PLAN ABX PER ID F/U CHEST CT IN 3 WKS IF NO CHANGE RML OPACITY OBTAIN PET SCAN AND CT GUIDED BX DAILY WT MONITOR LYTES,CBC,PLT CT DR MALDONADO Problem List - Problems (1) Lung nodule < 6cm on CT Code(s): R91.1 - SOLITARY PULMONARY NODULE (2) Bleeding from dialysis shunt Code(s): T82.838A - HEMORRHAGE DUE TO VASCULAR PROSTH DEV/GRFT, INIT (3) Dialysis AV fistula malfunction Code(s): T82.590A - [facility] COMPL OF SURGICALLY CREATED ARTERIOVENOUS FISTULA, INIT (4) ESRD on hemodialysis Code(s): N18.6 - END STAGE RENAL DISEASE; Z99.2 - DEPENDENCE ON RENAL DIALYSIS (5) HTN (hypertension) Code(s): I10 - ESSENTIAL (PRIMARY) HYPERTENSION (6) Anemia in ESRD (end-stage renal disease) Code(s): N18.6 - END STAGE RENAL DISEASE; D63.1 - ANEMIA IN CHRONIC KIDNEY DISEASE
--- NOTE | 2018-06-14 14:46 | PN ---
Progress Note, Physician History of Present Illness: OOB IN CHAIR NO COMPLAINTS NO F/C NO C/O COUGH/ SPUTUM BC PRELIM MSSA (NOT FINALIZED) - Current Medication List Current Medications: Active Medications Acetaminophen (Tylenol -) 650 mg PO Q6H PRN PRN Reason: PAIN LEVEL 1-5 Last Admin: 06/11/18 11:53 Dose: 650 mg Amlodipine Besylate (Norvasc -) 10 mg PO DAILY [facility] Last Admin: 06/14/18 12:01 Dose: 10 mg Aspirin (Ecotrin -) 81 mg PO DAILY [facility] Last Admin: 06/14/18 12:01 Dose: 81 mg Bacitracin (Bacitracin -) 1 applic TP DAILY [facility] Last Admin: 06/14/18 12:01 Dose: 1 applic Calcitriol (Rocaltrol -) 0.25 mcg PO DAILY [facility] Last Admin: 06/14/18 12:03 Dose: 0.25 mcg Doxazosin Mesylate (Cardura -) 2 mg PO BID [facility] Last Admin: 06/14/18 12:01 Dose: 2 mg Sodium Chloride (Normal Saline -) 1,000 mls @ 42 mls/hr IV ASDIR [facility] Last Admin: 06/14/18 12:00 Dose: Not Given Azithromycin (Zithromax 500mg Ivpb (Pre-Docked)) 500 mg in 250 mls @ 250 mls/ hr IVPB DAILY [facility] Last Admin: 06/14/18 12:01 Dose: 250 mls/hr Ceftriaxone Sodium 1 gm/ (Dextrose) 50 mls @ 100 mls/hr IVPB DAILY [facility]; Protocol Last Admin: 06/14/18 12:01 Dose: 100 mls/hr - Objective Vital Signs: Vital Signs Temperature 97.2 F L 06/14/18 11:40 Pulse Rate 80 06/14/18 11:40 Respiratory Rate 18 06/14/18 11:40 Blood Pressure 127/60 06/14/18 11:40 O2 Sat by Pulse Oximetry (%) 94 L 06/14/18 07:35 Constitutional: Yes: No Distress Cardiovascular: Yes: Regular Rate and Rhythm, S1, S2 Respiratory: Yes: Other (+ CREPITATIONS, BASES) Gastrointestinal: Yes: Normal Bowel Sounds, Soft. No: Tenderness Labs: CBC, BMP 06/14/18 08:20 06/14/18 08:20 INR, PTT INR 1.24 (0.83-1.09) H 06/10/18 08:48 Assessment/Plan STAPH BACTEREMIA ? GRAFT SOURCE S/P FISTULAPLASTY/ STENT PLACEMENT ESRD AWAIT FINAL IDENTIFICATION REDOSED VANCOMYCIN D/C ZITHROMAX/ CEFTRIAXONE
--- NOTE | 2018-06-14 14:57 | PN ---
Progress Note (short form) - Note Progress Note: Renal follow up for ESRD on HD Pt seen and examined at the bedside no acute complaints s/p dialysis this am, tolerated it well no fevers, chills, sob, cp, abd pain, N/V/D Vital Signs Temperature 97.2 F L 06/14/18 11:40 Pulse Rate 80 06/14/18 11:40 Respiratory Rate 18 06/14/18 11:40 Blood Pressure 127/60 06/14/18 11:40 O2 Sat by Pulse Oximetry (%) 94 L 06/14/18 07:35 Intake & Output 06/11/18 06/12/18 06/13/18 06/14/18 23:59 23:59 23:59 23:59 Intake Total 788 483 2699 300 Output Total 10 Balance 741 495 7282 300 Weight 78.335 kg 74.021 kg 74.435 kg 76.43 kg NAD RRR, no M/R CTA soft NT/ND no LE edema CBC, BMP 06/14/18 08:20 06/14/18 08:20 Current Medications Acetaminophen (Tylenol -) 650 mg PO Q6H PRN PRN Reason: PAIN LEVEL 1-5 Last Admin: 06/11/18 11:53 Dose: 650 mg Amlodipine Besylate (Norvasc -) 10 mg PO DAILY [facility] Last Admin: 06/14/18 12:01 Dose: 10 mg Aspirin (Ecotrin -) 81 mg PO DAILY [facility] Last Admin: 06/14/18 12:01 Dose: 81 mg Bacitracin (Bacitracin -) 1 applic TP DAILY [facility] Last Admin: 06/14/18 12:01 Dose: 1 applic Calcitriol (Rocaltrol -) 0.25 mcg PO DAILY [facility] Last Admin: 06/14/18 12:03 Dose: 0.25 mcg Doxazosin Mesylate (Cardura -) 2 mg PO BID [facility] Last Admin: 06/14/18 12:01 Dose: 2 mg Sodium Chloride (Normal Saline -) 1,000 mls @ 42 mls/hr IV ASDIR [facility] Last Admin: 06/14/18 12:00 Dose: Not Given 72 year old gentleman with hx of ESRD on HD (MWF), CVA, hypertension who presented with bleeding from AVF site. #ESRD on HD #Bleeding from AVF site r/o stenosis #Metabolic acidosis #Hypertension #Elevated troponin level tolerated HD well this am cultures grew MSSA bacteremia Check US of AVF to ensure there is no fluid collection or abscess blood cultures from 06/12 w/o growth thus far will check vanco level prior to HD will continue LIA with HD Thank you Gerard Trejo DO
--- NOTE | 2018-06-14 15:42 | CONS ---
DATE OF CONSULTATION: 06/14/2018 REFERRING PHYSICIAN: Dr. Hurley HISTORY: Patient is a 72-year-old black male with a past medical history of end-stage renal disease on hemodialysis Sunday, Sunday and Sunday, history of CVA, hypertension, history of tobacco use, quit greater than 50 years ago admitted to [facility] on June 12 with bleeding in the right arm fistula. The patient states for the past couple of weeks prior to admission he started developing cough and some chest congestion. He started noticing some bleeding in his fistula. Apparently, on the day of admission, he felt some chills at which time he presented to the emergency room. In the ER, he was noted to be hypertensive and was given Norvasc in the emergency room. Hospitalization was significant for the patient underwent a right arm venogram and placing a stent in the central venous dialysis catheter on June 12. Hospitalization also noted on June 12 he developed some increasing shortness of breath. He was noted to be hypoxic and complaining of increasing chest congestion and shortness of breath. He underwent a CT scan of the chest, which revealed a right middle lobe opacity, possible nodular opacity. The patient had a previous CAT scan in 2014 in which this was not present. The patient denies any history of occupational exposure to chemicals or fumes. There is no history of recent travel. There is no history of DVT or PE in the past. The patient also complains of occasional dyspnea on exertion. Denies any orthopnea or PND. PAST MEDICAL HISTORY: Again includes end-stage renal disease, hypertension, history of CVA with no residual defects. REVIEW OF SYSTEMS: No orthopnea, no PND. Positive dyspnea on exertion, positive cough. No abdominal pain, no lower extremity edema. MEDICATIONS: Include Cardura, Tylenol, Zithromax, ceftriaxone, bacitracin, Norvasc, normal saline, Ecotrin, and Rocaltrol. PHYSICAL EXAMINATION: General: Patient is a well-developed, well-nourished male awake and alert in no acute distress. Vital Signs: He is afebrile. Blood pressure 127/60, respiratory rate 18. HEENT: Normocephalic and atraumatic. Neck: Supple. Heart: Regular S1, S2. Chest: Clear. Abdomen: Soft. Bowel sounds are positive. Extremities: No cyanosis or edema. LABORATORIES: WBC 9.4, hemoglobin 10, hematocrit 30.1 with a platelet count of 180,000, BUN 47, creatinine 8.7. Chest CT as noted earlier. IMPRESSION: 1. Right middle lobe nodular opacity, rule out possible malignant, rule out possible infectious. 2. Methicillin-resistant Staphylococcus aureus bacteremia. 3. End-stage renal disease on hemodialysis. 4. Hypertension. 5. Status post cerebrovascular accident. 6. Right arteriovenous fistula. PLAN: Antibiotics as per Infectious Disease. Daily weight. Hemodialysis as per Renal. Will obtain follow up chest CT in 3 weeks. If there is no change in right middle lobe opacity, patient will require a PET scan as well as tissue diagnosis to rule out underlying malignancy. REDDY MALDONADO M.D. [id number]
--- NOTE | 2018-06-14 15:44 | PN ---
Progress Note (short form) - Note Progress Note: s: no cp sob palps dizzy o: Vital Signs Period Temp Pulse Resp BP Sys/Mckinley Pulse Ox Last 24 Hr 97.2 F-98.2 F 60-87 18-20 107-133/50-97 94-95 Constitutional: Yes: No Distress, Calm Eyes: Yes: Conjunctiva Clear Neck: Yes: Supple, Trachea Midline Respiratory: Yes: Regular, CTA Bilaterally Gastrointestinal: Yes: Normal Bowel Sounds, Soft Cardiovascular: Yes: Regular Rate and Rhythm JVD: No Heart Sounds: Yes: S1, S2 Murmur: No: Systolic Murmur Musculoskeletal: No: Back Pain Edema: No Peripheral Pulses: 1+ Left Doralis Pedis, 1+ Right Dorsalis Pedis Integumentary: No: Jaundice Neurological: Yes: Alert, Oriented Psychiatric: No: Agitated Current Medications Generic Name Dose Route Start Last Admin Trade Name Freq PRN Reason Stop Dose Admin Acetaminophen 650 mg 06/11/18 10:26 06/11/18 11:53 Tylenol - PO 650 mg Q6H PRN Administration PAIN LEVEL 1-5 Amlodipine Besylate 10 mg 06/12/18 10:00 06/14/18 12:01 Norvasc - PO 10 mg DAILY [facility] Administration Aspirin 81 mg 06/11/18 11:15 06/14/18 12:01 Ecotrin - PO 81 mg DAILY [facility] Administration Bacitracin 1 applic 06/12/18 14:15 06/14/18 12:01 Bacitracin - TP 1 applic DAILY [facility] Administration Calcitriol 0.25 mcg 06/14/18 12:00 06/14/18 12:03 Rocaltrol - PO 0.25 mcg DAILY [facility] Administration Doxazosin Mesylate 2 mg 06/11/18 22:00 06/14/18 12:01 Cardura - PO 2 mg BID [facility] Administration Sodium Chloride 1,000 mls @ 42 mls/hr 06/11/18 10:00 06/14/18 12:00 Normal Saline - IV Not Given ASDIR [facility] CBC, BMP 06/14/18 08:20 06/14/18 08:20 Assessment/Plan echo 2016 mild conc LVH, nl LV/RV function, redundant MV chordae echo 05/2018: mild dec lvef, global hk, nl rv, mild mr, mod tr, mild ar, mild pr , rvsp 60 CXR: no acute process 1. Elevated trop: - 0.11->0.15, indeterminate range, flat trend - history, EKG not c/w ACS, no chest pain - likely demand in setting of ESRD/sepsis from PNA. Can consider stress test prior to d/c or as outpatient if adequate f/u can be arranged and patient compliant (if one not done recently) 2. HTN: - continue current meds 3. ESRD: - on HD, renal consulted - Bleeding AV fistula s/p hemostasis, s/p Right arm venogram/Stent placement 4. CVA - resume ASA when feasible from Vascular standpoint. 5. Cardiomyopathy: -echo here showing mild dec lvef, new from echo 2017 -cont vol management with HD -would repeat echo as outpt after acute issues resolved and consider ischemic eval as noted above. 6. bacteremia: -abx per ID
--- NOTE | 2018-06-14 17:54 | PN ---
Physical Exam: SUBJECTIVE: Patient seen and examined.He is feeling good today, states that doesn't need oxygen when lying in bed. OBJECTIVE: Vital Signs Period Temp Pulse Resp BP Sys/Mckinley Pulse Ox Last 24 Hr 97.2 F-98.8 F 60-87 18-20 104-133/50-97 94-95 GENERAL: The patient is awake, alert, and fully oriented, in no acute distress, getting dialysis. HEAD: Normal with no signs of trauma. EYES: Extraocular movements intact, conjunctiva clear. ENT: Oropharynx clear without exudates, moist mucous membranes, hypopigmentation on lips. NECK: Trachea midline, full range of motion, supple. LUNGS: Breath sounds equal, occasional rhales/crackles bilaterally, no wheezes HEART: Regular rate and rhythm, S1, S2 without murmur, rub or gallop. ABDOMEN: Soft, nontender, nondistended, normoactive bowel sounds. EXTREMITIES: 2+ pulses, warm, no edema. NEUROLOGICAL: Non focal. Normal speech, gait not observed. PSYCH: Normal mood, normal affect. SKIN: Warm, dry, normal turgor, no rashes. Fistula covered in right forearm, no tenderness to palpation, no drainage/bleeding, no pus. Laboratory Results - last 24 hr 06/14/18 06/14/18 06/14/18 08:20 08:20 08:20 WBC 9.4 RBC 3.07 L Hgb 10.0 L Hct 30.1 L MCV 97.8 H MCH 32.6 MCHC 33.3 RDW 14.1 Plt Count 108 L MPV 9.7 Sodium 130 L Potassium 3.3 L Chloride 93 L Carbon Dioxide 28 Anion Gap 9 BUN 47 H Creatinine 8.7 H* Creat Clearance w eGFR 6.05 Random Glucose 131 H Calcium 6.6 L* Phosphorus 2.2 L Vancomycin Pre-Dose 10.8 L Active Medications Generic Name Dose Route Start Last Admin Trade Name Freq PRN Reason Stop Dose Admin Acetaminophen 650 mg 06/11/18 10:26 06/11/18 11:53 Tylenol - PO 650 mg Q6H PRN Administration PAIN LEVEL 1-5 Amlodipine Besylate 10 mg 06/12/18 10:00 06/14/18 12:01 Norvasc - PO 10 mg DAILY SETVE Administration Aspirin 81 mg 06/11/18 11:15 06/14/18 12:01 Ecotrin - PO 81 mg DAILY STEVE Administration Bacitracin 1 applic 06/12/18 14:15 06/14/18 12:01 Bacitracin - TP 1 applic DAILY STEVE Administration Calcitriol 0.25 mcg 06/14/18 12:00 06/14/18 12:03 Rocaltrol - PO 0.25 mcg DAILY STEVE Administration Doxazosin Mesylate 2 mg 06/11/18 22:00 06/14/18 12:01 Cardura - PO 2 mg BID STEVE Administration Sodium Chloride 1,000 mls @ 42 mls/hr 06/11/18 10:00 06/14/18 12:00 Normal Saline - IV Not Given ASDIR STEVE ASSESSMENT/PLAN: The patient is a 72 year old male with a PMHx of ESRD on HD (MWF), last dialysis on 06/07/18, CVA (no residual defects), HTN, presented to the hospital after he had bleeding from fistula in right arm. Hypoxia: -found to be hypoxic, currently on 3 L, not on Oxygen at home -CT chest reviewed -started on Ceftriaxone, Azithromycin, Vanco -cultres pos for Mssa -Tylenol for fever -flu swab, rsv negative Elevated troponin: -EKG reviewed -cardiology consulted, stable -cardiac monitoring on telemetry stopped -ECHO reviewed Lung mass: -new mass on Ct chest -will f/u with Pulmonary outpatient for CT, PET scan, biopsy s/p bleeding from right fistula: -stent placed by Vascular Surgery -possible infection coming from fistula HTN urgency: -stable BP -cont Cardura and Norvasc ESRD: -HD today -f/u Nephrology recommendations F/E/N: no/no changes/Renal/low Na diet DISPO: med surg Problem List - Problems (1) Anemia in ESRD (end-stage renal disease) Code(s): N18.6 - END STAGE RENAL DISEASE; D63.1 - ANEMIA IN CHRONIC KIDNEY DISEASE (2) Bleeding from dialysis shunt Code(s): T82.838A - HEMORRHAGE DUE TO VASCULAR PROSTH DEV/GRFT, INIT (3) Cough Code(s): R05 - COUGH (4) Dialysis AV fistula malfunction Code(s): T82.590A - [facility] COMPL OF SURGICALLY CREATED ARTERIOVENOUS FISTULA, INIT (5) HTN (hypertension) Code(s): I10 - ESSENTIAL (PRIMARY) HYPERTENSION Visit type - Emergency Visit Emergency Visit: Yes ED Registration Date: 06/12/18 Care time: The patient presented to the Emergency Department on the above date and was hospitalized for further evaluation of their emergent condition. - New Patient This patient is new to me today: No - Critical Care Critical Care patient: No - Discharge Referral Referred to [facility] No
--- NOTE | 2018-06-14 18:19 | PN ---
Teaching Attending Note Name of Resident: Zina Chapman ATTENDING PHYSICIAN STATEMENT I saw and evaluated the patient. I reviewed the resident's note and discussed the case with the resident. I agree with the resident's findings and plan as documented. SUBJECTIVE: Mr Blackwood says he feels bad because he just received HD. Denies cp , sob, n/v. OBJECTIVE: Last Vital Signs Temp Pulse Resp BP Pulse Ox 37.1 C 84 18 104/74 94 L 06/14/18 13:30 06/14/18 13:30 06/14/18 13:30 06/14/18 13:30 06/14/18 07:35 Gen: nad, obese Pulm: ctab w/o w/r/r CV: rrr w/o m/r/g Abd: +bs, s/nt/nd Ext: no c/c/e CBC, BMP 06/14/18 08:20 06/14/18 08:20 ASSESSMENT AND PLAN: -appreciate ID assistance -blood cultures growing MSSA -continue vancomycin -case d/w Dr Louis, outpatient evaluation of lung mass since with active infection -HD today, nephrology following -continue current management Problem List - Problems (1) Sepsis Code(s): A41.9 - SEPSIS, UNSPECIFIED ORGANISM (2) Bleeding from dialysis shunt Code(s): T82.838A - HEMORRHAGE DUE TO VASCULAR PROSTH DEV/GRFT, INIT (3) Lung nodule < 6cm on CT Code(s): R91.1 - SOLITARY PULMONARY NODULE (4) ESRD on hemodialysis Code(s): N18.6 - END STAGE RENAL DISEASE; Z99.2 - DEPENDENCE ON RENAL DIALYSIS (5) HTN (hypertension) Code(s): I10 - ESSENTIAL (PRIMARY) HYPERTENSION
[2018-06-14] MEDS: ACETAMINOPHEN 325 MG TABLET (FP) PO PRN (22:39)
[2018-06-15 07:47] LABS: BASO % 0.5 % (0-2.0); HEMATOCRIT 31.5 % (35.4-49); HEMOGLOBIN 10.6 GM/dL (11.7-16.9); LYMPH % 8.4 % (8-40); MCH 32.8 pg (25.7-33.7); MCHC 33.8 g/dl (32.0-35.9); MEAN CELL VOLUME 97.1 fl (80-96); MEAN PLT VOLUME 8.7 fl (7.5-11.1); MONO % 16.5 % (3.8-10.2); NEUT % 67.6 % (42.8-82.8); PLATELET COUNT 126 K/MM3 (134-434); RBC 3.25 M/mm3 (4.00-5.60); RDW 14.2 % (11.9-15.9)
[2018-06-15 07:51] LABS: ALBUMIN 2.5 g/dl (3.4-5.0); ALK PHOS 85 U/L (45-117); ANION GAP 10 MMOL/L (8-16); BILIRUBIN,TOTAL 0.6 mg/dL (0.2-1); BLOOD UREA NITROGEN 35 mg/dL (7-18); CALCIUM 7.4 mg/dL (8.5-10.1); CHLORIDE 96 mmol/L (98-107); CO2 30 mmol/L (21-32); CREATININE 6.5 mg/dL (0.55-1.3); GLUCOSE,RANDOM 94 mg/dL (74-106); POTASSIUM 3.6 mmol/L (3.5-5.1); SGOT/AST 48 U/L (15-37); SGPT/ALT 18 U/L (13-61); SODIUM 135 mmol/L (136-145); TOT PROT 5.9 g/dl (6.4-8.2)
[2018-06-15] MEDS: amLODIPine BESYLATE 10 MG TABLET (FP) PO SCH (09:32)
[2018-06-15] MEDS: BACITRACIN 15 GM TUBE TOPICAL OINTMENT TP SCH (09:32)
[2018-06-15] MEDS: CALCITRIOL 0.25 MCG CAPSULE (FP) PO SCH (09:32)
[2018-06-15] MEDS: ASPIRIN COATED 81 MG TABLET.EC PO SCH (09:32)
[2018-06-15] MEDS: DOXAZOSIN MESYLATE 2 MG TABLET (FP) PO SCH ×2 (09:32→21:50)
--- NOTE | 2018-06-15 11:23 | PN ---
Progress Note (short form) - Note Progress Note: Renal follow up for ESRD on HD Pt seen and examined at the bedside awake and alert no acute complaints no sob, cp, abd pain s/p HD yesterday no bleeding from AVF site Vital Signs Temperature 98.2 F 06/15/18 07:50 Pulse Rate 83 06/15/18 07:50 Respiratory Rate 15 06/15/18 07:50 Blood Pressure 142/95 06/15/18 07:50 O2 Sat by Pulse Oximetry (%) 94 L 06/15/18 09:00 Intake & Output 06/12/18 06/13/18 06/14/18 06/15/18 23:59 23:59 23:59 23:59 Intake Total 736 1400 300 120 Output Total 2 Balance 736 1400 298 120 Weight 74.021 kg 74.435 kg 76.43 kg 75.296 kg NAD RRR, no M/R CTA soft NT/ND no LE edema CBC, BMP 06/15/18 06:00 06/15/18 06:00 Current Medications Acetaminophen (Tylenol -) 650 mg PO Q6H PRN PRN Reason: PAIN LEVEL 1-5 Last Admin: 06/14/18 22:39 Dose: 650 mg Amlodipine Besylate (Norvasc -) 10 mg PO DAILY [facility] Last Admin: 06/15/18 09:32 Dose: 10 mg Aspirin (Ecotrin -) 81 mg PO DAILY [facility] Last Admin: 06/15/18 09:32 Dose: 81 mg Bacitracin (Bacitracin -) 1 applic TP DAILY [facility] Last Admin: 06/15/18 09:32 Dose: 1 applic Calcitriol (Rocaltrol -) 0.25 mcg PO DAILY [facility] Last Admin: 06/15/18 09:32 Dose: 0.25 mcg Doxazosin Mesylate (Cardura -) 2 mg PO BID [facility] Last Admin: 06/15/18 09:32 Dose: 2 mg 72 year old gentleman with hx of ESRD on HD (MWF), CVA, hypertension who presented with bleeding from AVF site. #ESRD on HD #Bleeding from AVF site r/o stenosis #Metabolic acidosis #Hypertension #Elevated troponin level no acute need for [facility] Vanco level is only ~12, ? need for additional vanco vs. PCN Abx given pt has MSSA repeat cultures remain w/o growth ID following next HD planned for sunday Thank you Gerard Trejo DO
--- NOTE | 2018-06-15 11:26 | PN ---
Progress Note (short form) - Note Progress Note: no complaints s/p HD yesterday Vital Signs Period Temp Pulse Resp BP Sys/Mckinley Pulse Ox Last 24 Hr 97.2 F-98.8 F 80-89 15-18 104-142/60-95 94 cor-rrr lungs clear abd soft, nt ext right avf CBC, BMP 06/15/18 06:00 06/15/18 06:00 Microbiology 06/13/18 10:40 Blood - Peripheral Venous Blood Culture - Preliminary NO GROWTH OBTAINED AFTER 48 HOURS, INCUBATION TO CONTINUE FOR 3 DAYS. 06/13/18 10:30 Blood - Peripheral Venous Blood Culture - Preliminary NO GROWTH OBTAINED AFTER 48 HOURS, INCUBATION TO CONTINUE FOR 3 DAYS. 06/11/18 15:20 Blood - Peripheral Venous Blood Culture - Preliminary Presumptive Mssa (Pbp2a Neg) 06/11/18 15:45 Blood - Peripheral Venous Blood Culture - Preliminary Presumptive Mssa (Pbp2a Neg) meds reviewed echo- no veg noted a/p MSSA bacteremia- presumed source AVF s/p HD yesterday switch to cefazolin repeat blood cultures are negative esrd/hd- last dialysis yesterday will be able to get cefazolin with HD no need for picc line pulmonary nodule- for outpt f/u imaging d/w hospitalist
[2018-06-15] MEDS ORDERED: CEFAZOLIN 1 GM in DEXTROSE 5%-WATER - 50 ML IVPB SCH (11:30)
--- NOTE | 2018-06-15 12:25 | PN ---
Progress Note, Physician Chief Complaint: Mr Blackwood has no new complaints. Complains of being bothered by doctors and not being able to get rest. Denies cp, sob, n/v. - Current Medication List Current Medications: Active Medications Acetaminophen (Tylenol -) 650 mg PO Q6H PRN PRN Reason: PAIN LEVEL 1-5 Last Admin: 06/14/18 22:39 Dose: 650 mg Amlodipine Besylate (Norvasc -) 10 mg PO DAILY [facility] Last Admin: 06/15/18 09:32 Dose: 10 mg Aspirin (Ecotrin -) 81 mg PO DAILY [facility] Last Admin: 06/15/18 09:32 Dose: 81 mg Bacitracin (Bacitracin -) 1 applic TP DAILY [facility] Last Admin: 06/15/18 09:32 Dose: 1 applic Calcitriol (Rocaltrol -) 0.25 mcg PO DAILY [facility] Last Admin: 06/15/18 09:32 Dose: 0.25 mcg Doxazosin Mesylate (Cardura -) 2 mg PO BID [facility] Last Admin: 06/15/18 09:32 Dose: 2 mg Cefazolin Sodium 1 gm/ (Dextrose) 50 mls @ 100 mls/hr IVPB DAILY [facility] - Objective Vital Signs: Vital Signs Temperature 36.8 C 06/15/18 07:50 Pulse Rate 83 06/15/18 07:50 Respiratory Rate 15 06/15/18 07:50 Blood Pressure 142/95 06/15/18 07:50 O2 Sat by Pulse Oximetry (%) 94 L 06/15/18 09:00 Constitutional: Yes: No Distress, Calm, Obese Cardiovascular: Yes: Regular Rate and Rhythm. No: Gallop, Murmur, Rub Respiratory: Yes: Regular, CTA Bilaterally. No: Rales, Rhonchi, Wheezes Gastrointestinal: Yes: Normal Bowel Sounds, Soft. No: Distention, Tenderness Extremities: Yes: WNL Edema: No Labs: CBC, BMP 06/15/18 06:00 06/15/18 06:00 INR, PTT INR 1.24 (0.83-1.09) H 06/10/18 08:48 Problem List - Problems (1) Sepsis Code(s): A41.9 - SEPSIS, UNSPECIFIED ORGANISM (2) Bleeding from dialysis shunt Code(s): T82.838A - HEMORRHAGE DUE TO VASCULAR PROSTH DEV/GRFT, INIT (3) Lung nodule < 6cm on CT Code(s): R91.1 - SOLITARY PULMONARY NODULE (4) ESRD on hemodialysis Code(s): N18.6 - END STAGE RENAL DISEASE; Z99.2 - DEPENDENCE ON RENAL DIALYSIS (5) HTN (hypertension) Code(s): I10 - ESSENTIAL (PRIMARY) HYPERTENSION Assessment/Plan -case d/w Dr Ram -growing [facility], change to cefazolin -can get after HD -will get dose today and after HD on Sunday -dispo planning for Sunday -continue current management
--- NOTE | 2018-06-15 12:41 | PN ---
Progress Note, Physician History of Present Illness: PULMONARY ALERT,NO DISTRESS,-SOB - Current Medication List Current Medications: Active Medications Acetaminophen (Tylenol -) 650 mg PO Q6H PRN PRN Reason: PAIN LEVEL 1-5 Last Admin: 06/14/18 22:39 Dose: 650 mg Amlodipine Besylate (Norvasc -) 10 mg PO DAILY [facility] Last Admin: 06/15/18 09:32 Dose: 10 mg Aspirin (Ecotrin -) 81 mg PO DAILY [facility] Last Admin: 06/15/18 09:32 Dose: 81 mg Bacitracin (Bacitracin -) 1 applic TP DAILY [facility] Last Admin: 06/15/18 09:32 Dose: 1 applic Calcitriol (Rocaltrol -) 0.25 mcg PO DAILY [facility] Last Admin: 06/15/18 09:32 Dose: 0.25 mcg Doxazosin Mesylate (Cardura -) 2 mg PO BID [facility] Last Admin: 06/15/18 09:32 Dose: 2 mg Cefazolin Sodium 1 gm/ (Dextrose) 50 mls @ 100 mls/hr IVPB DAILY [facility] - Objective Vital Signs: Vital Signs Temperature 98.2 F 06/15/18 07:50 Pulse Rate 83 06/15/18 07:50 Respiratory Rate 15 06/15/18 07:50 Blood Pressure 142/95 06/15/18 07:50 O2 Sat by Pulse Oximetry (%) 94 L 06/15/18 09:00 Constitutional: Yes: Well Nourished, Calm Eyes: Yes: WNL HENT: Yes: WNL Neck: Yes: WNL Cardiovascular: Yes: Regular Rate and Rhythm, S1, S2 Respiratory: Yes: Rhonchi (SCATTERED RHONCHI) Gastrointestinal: Yes: Normal Bowel Sounds, Soft Extremities: Yes: WNL Edema: No Labs: CBC, BMP 06/15/18 06:00 06/15/18 06:00 INR, PTT INR 1.24 (0.83-1.09) H 06/10/18 08:48 Problem List - Problems (1) Lung nodule < 6cm on CT Code(s): R91.1 - SOLITARY PULMONARY NODULE (2) Bleeding from dialysis shunt Code(s): T82.838A - HEMORRHAGE DUE TO VASCULAR PROSTH DEV/GRFT, INIT (3) Dialysis AV fistula malfunction Code(s): T82.590A - [facility] COMPL OF SURGICALLY CREATED ARTERIOVENOUS FISTULA, INIT (4) ESRD on hemodialysis Code(s): N18.6 - END STAGE RENAL DISEASE; Z99.2 - DEPENDENCE ON RENAL DIALYSIS (5) HTN (hypertension) Code(s): I10 - ESSENTIAL (PRIMARY) HYPERTENSION (6) Anemia in ESRD (end-stage renal disease) Code(s): N18.6 - END STAGE RENAL DISEASE; D63.1 - ANEMIA IN CHRONIC KIDNEY DISEASE Assessment/Plan IMP RML NODULAR OPACITY LIKELY MALIGNANT, ?INFECTIOUS MRSA BACTEREMIA ESRD ON HD HTN S/P CVA R AV FISTULA ANEMIA THROMBOCYTOPENIA PLAN ABX PER ID F/U CHEST CT IN 3 WKS IF NO CHANGE RML OPACITY OBTAIN PET SCAN AND CT GUIDED BX DAILY WT MONITOR LYTES,CBC,PLT CT DR MALDONADO Problem List - Problems (1) Lung nodule < 6cm on CT Code(s): R91.1 - SOLITARY PULMONARY NODULE (2) Bleeding from dialysis shunt Code(s): T82.838A - HEMORRHAGE DUE TO VASCULAR PROSTH DEV/GRFT, INIT (3) Dialysis AV fistula malfunction Code(s): T82.590A - [facility] COMPL OF SURGICALLY CREATED ARTERIOVENOUS FISTULA, INIT (4) ESRD on hemodialysis Code(s): N18.6 - END STAGE RENAL DISEASE; Z99.2 - DEPENDENCE ON RENAL DIALYSIS (5) HTN (hypertension) Code(s): I10 - ESSENTIAL (PRIMARY) HYPERTENSION (6) Anemia in ESRD (end-stage renal disease) Code(s): N18.6 - END STAGE RENAL DISEASE; D63.1 - ANEMIA IN CHRONIC KIDNEY DISEASE
[2018-06-15] MEDS ORDERED: ceFAZolin SODIUM 1 GM VIAL ONE (12:57)
[2018-06-15] MEDS ORDERED: DEXTROSE 5%-WATER - 50 ML IVPB ONE (12:57)
--- NOTE | 2018-06-16 02:04 | PN ---
Progress Note (short form) - Note Progress Note: SUBJECTIVE: Paged by nurse that patient experiences chest pain. Patient sitting upright in chair says pain is a dull ache that radiates from his lower abdomen up to his shoulders, Not reproducible, Not worse with breathing, improves with leaning forward. Pain does not radiate. No associated SOB, Diaphoresis. OBJECTIVE: 133/90, HR 86, RR 12 95% on RA General: Sitting upright, Able to speak in complete sentences Heart: RRR S1 S2 without murmur, No obvious signs of trauma or rash Lungs: CTA B/L A/P: #Chest Pain -Need to R/O ACS -Trop drawn stat 0.06, Trend -EKG reveals mild TWI in V1 and V2 -Give Nitro SL 0.4mg x2 and Acetaminophen 325mg x1--> Chest pain improved from to 07/22 -Transfer to Tele
[2018-06-16] MEDS ORDERED: ACETAMINOPHEN 325 MG TABLET (FP) PO ONE (02:48)
[2018-06-16] MEDS ORDERED: NITROGLYCERIN SUBLINGUAL 1/150 0.4 MG TAB SL ONE ×2 (02:48→03:59)
[2018-06-16] MEDS ORDERED: ACETAMINOPHEN 325 MG TABLET (FP) PO PRN (03:53)
[2018-06-16] MEDS: SODIUM CHLORIDE 1,000 ML IV SCH (03:55)
[2018-06-16] MEDS: HEPARIN NA (PORCINE) 5,000 UNITS/ML 1ML VIAL IVPUSH SCH (03:56)
[2018-06-16 07:51] LABS: BASO % 0.4 % (0-2.0); EOS % 4.8 % (0-4.5); HEMATOCRIT 29.3 % (35.4-49); HEMOGLOBIN 9.8 GM/dL (11.7-16.9); MCH 32.5 pg (25.7-33.7); MCHC 33.6 g/dl (32.0-35.9); MEAN CELL VOLUME 96.9 fl (80-96); MONO % 11.9 % (3.8-10.2); NEUT % 72.9 % (42.8-82.8); PLATELET COUNT 141 K/MM3 (134-434); RBC 3.03 M/mm3 (4.00-5.60); RDW 14.4 % (11.9-15.9); WHITE BLOOD COUNT 9.1 K/mm3 (4.0-10.0)
[2018-06-16 08:04] LABS: ANION GAP 11 MMOL/L (8-16); BLOOD UREA NITROGEN 44 mg/dL (7-18); CHLORIDE 94 mmol/L (98-107); CO2 26 mmol/L (21-32); GLUCOSE,RANDOM 86 mg/dL (74-106); MAGNESIUM 1.6 mg/dL (1.8-2.4); POTASSIUM 3.4 mmol/L (3.5-5.1); SODIUM 131 mmol/L (136-145)
[2018-06-16 08:31] LABS: CALCIUM 6.9 mg/dL (8.5-10.1)
--- NOTE | 2018-06-16 09:51 | PN ---
Progress Note, Physician History of Present Illness: Patient transferred to tele after episdoe of chest tightness/congestion Improved with SLNTG and belching No chest pain/tightness now Tele: NSR 80s with PVCs - Current Medication List Current Medications: Active Medications Acetaminophen (Tylenol -) 650 mg PO Q6H PRN PRN Reason: PAIN LEVEL 1-5 Last Admin: 06/16/18 04:07 Dose: 650 mg Amlodipine Besylate (Norvasc -) 10 mg PO DAILY [facility] Aspirin (Ecotrin -) 81 mg PO DAILY [facility] Bacitracin (Bacitracin -) 1 applic TP DAILY [facility] Calcitriol (Rocaltrol -) 0.25 mcg PO DAILY [facility] Doxazosin Mesylate (Cardura -) 2 mg PO BID [facility] Cefazolin Sodium (Ancef 1 Gm Premixed Ivpb -) 1 gm in 50 mls @ 100 mls/hr IVPB DAILY [facility] - Objective Vital Signs: Vital Signs Temperature 97.7 F 06/16/18 04:16 Pulse Rate 93 H 06/16/18 04:16 Respiratory Rate 20 06/16/18 04:39 Blood Pressure 123/83 06/16/18 04:16 O2 Sat by Pulse Oximetry (%) 98 06/15/18 21:00 Constitutional: Yes: No Distress Cardiovascular: Yes: Regular Rate and Rhythm, Murmur (soft early systolic murmur at RUSB) Musculoskeletal: Yes: Other (Right arm AVF) Edema: LLE: Trace, RLE: Trace Labs: CBC, BMP 06/16/18 05:50 06/16/18 05:50 INR, PTT INR 1.24 (0.83-1.09) H 06/10/18 08:48 Assessment/Plan 1. Chest pain -Chest tightness overnight resolved with NTG and belching -ECG on 06/16 showed NSR at 87/min with LAD and LVH -Initially admitted with Elevated trop (0.11->0.15), indeterminate range with a flat trend and now have decreased to 0.06. - history, EKG and symptoms not consistent with ACS - Agree with prior plan by Dr. Rangel considering stress test prior to d/c or as outpatient if adequate f/u can be arranged and patient compliant (if one not done recently) 2. Cardiomyopathy: -echo here showing mild dec lvef, new from echo 2017 -cont vol management with HD -would repeat echo as outpt after acute issues resolved and consider ischemic eval as noted above.
[2018-06-16] MEDS ORDERED: CALCITRIOL 0.25 MCG CAPSULE (FP) PO SCH ×2 (10:00→10:05)
[2018-06-16] MEDS: BACITRACIN 15 GM TUBE TOPICAL OINTMENT TP SCH (10:03)
[2018-06-16] MEDS: DOXAZOSIN MESYLATE 2 MG TABLET (FP) PO SCH ×2 (10:03→21:12)
[2018-06-16] MEDS: amLODIPine BESYLATE 10 MG TABLET (FP) PO SCH (10:03)
[2018-06-16] MEDS: ASPIRIN COATED 81 MG TABLET.EC PO SCH (10:03)
[2018-06-16] MEDS: CEFAZOLIN 1 GM/D5W 1 GM/50 ML BAG IVPB SCH (10:04)
--- NOTE | 2018-06-16 10:08 | PN ---
Progress Note (short form) - Note Progress Note: Renal follow up for ESRD on HD Pt seen and examined at the bedside sleeping but arouseble no overnight events no fever, chills, sob, cp Vital Signs Temperature 97.7 F 06/16/18 04:16 Pulse Rate 93 H 06/16/18 04:16 Respiratory Rate 20 06/16/18 04:39 Blood Pressure 123/83 06/16/18 04:16 O2 Sat by Pulse Oximetry (%) 98 06/15/18 21:00 Intake & Output 06/13/18 06/14/18 06/15/18 06/16/18 23:59 23:59 23:59 23:59 Intake Total 1400 300 620 120 Output Total 2 Balance 1400 298 620 120 Weight 74.435 kg 76.43 kg 75.296 kg NAD RRR, no M/R CTA soft NT/ND no LE edema CBC, BMP 06/16/18 05:50 06/16/18 05:50 Current Medications Acetaminophen (Tylenol -) 650 mg PO Q6H PRN PRN Reason: PAIN LEVEL 1-5 Last Admin: 06/16/18 04:07 Dose: 650 mg Amlodipine Besylate (Norvasc -) 10 mg PO DAILY [facility] Aspirin (Ecotrin -) 81 mg PO DAILY [facility] Bacitracin (Bacitracin -) 1 applic TP DAILY [facility] Calcitriol (Rocaltrol -) 0.5 mcg PO DAILY [facility] Doxazosin Mesylate (Cardura -) 2 mg PO BID [facility] Cefazolin Sodium (Ancef 1 Gm Premixed Ivpb -) 1 gm in 50 mls @ 100 mls/hr IVPB DAILY [facility] 72 year old gentleman with hx of ESRD on HD (MWF), CVA, hypertension who presented with bleeding from AVF site. #ESRD on HD #Bleeding from AVF site r/o stenosis #Metabolic acidosis #Hypertension #Elevated troponin level no acute need for [employer] today, next dialysis planned for tomorrow pt grew MSSA from blood cultures, repeat cultures from 06/13 remain negative ID following, will need snf Abx recs continue present antihypertensives will continue LIA with HD Thank you Gerard Trejo DO
--- NOTE | 2018-06-16 10:29 | PN ---
Progress Note, Physician History of Present Illness: pulmonary alert,transferred to telemetry last night secondary to cp relieved with nitro, currently asymptomatic - Current Medication List Current Medications: Active Medications Acetaminophen (Tylenol -) 650 mg PO Q6H PRN PRN Reason: PAIN LEVEL 1-5 Last Admin: 06/16/18 04:07 Dose: 650 mg Amlodipine Besylate (Norvasc -) 10 mg PO DAILY [facility] Last Admin: 06/16/18 10:03 Dose: 10 mg Aspirin (Ecotrin -) 81 mg PO DAILY [facility] Last Admin: 06/16/18 10:03 Dose: 81 mg Bacitracin (Bacitracin -) 1 applic TP DAILY [facility] Last Admin: 06/16/18 10:03 Dose: 1 applic Calcitriol (Rocaltrol -) 0.5 mcg PO DAILY [facility] Doxazosin Mesylate (Cardura -) 2 mg PO BID [facility] Last Admin: 06/16/18 10:03 Dose: 2 mg Epoetin Stevie (Epogen -) 10,000 unit IVPUSH ONCE ONE Stop: 06/17/18 06:01 Heparin Sodium (Porcine) (Heparin -) 500 unit IVPUSH Q1H [facility] Stop: 06/17/18 10:01 Heparin Sodium (Porcine) (Heparin -) 500 unit IVPUSH ONCE ONE Stop: 06/17/18 06:01 Cefazolin Sodium (Ancef 1 Gm Premixed Ivpb -) 1 gm in 50 mls @ 100 mls/hr IVPB DAILY [facility] Last Admin: 06/16/18 10:04 Dose: 100 mls/hr Sodium Chloride (Normal Saline -) 250 mls @ 3,000 mls/hr IV PRN PRN PRN Reason: Hypotension during Dialysis Stop: 06/17/18 10:08 - Objective Vital Signs: Vital Signs Temperature 97.7 F 06/16/18 04:16 Pulse Rate 93 H 06/16/18 04:16 Respiratory Rate 20 06/16/18 04:39 Blood Pressure 123/83 06/16/18 04:16 O2 Sat by Pulse Oximetry (%) 98 06/15/18 21:00 Constitutional: Yes: Well Nourished, Calm Eyes: Yes: WNL HENT: Yes: WNL Neck: Yes: WNL Cardiovascular: Yes: Regular Rate and Rhythm, S1, S2 Respiratory: Yes: CTA Bilaterally Gastrointestinal: Yes: Normal Bowel Sounds, Soft Extremities: Yes: WNL Edema: No Labs: CBC, BMP 06/16/18 05:50 06/16/18 05:50 INR, PTT INR 1.24 (0.83-1.09) H 06/10/18 08:48 Problem List - Problems (1) Lung nodule < 6cm on CT Code(s): R91.1 - SOLITARY PULMONARY NODULE (2) Bleeding from dialysis shunt Code(s): T82.838A - HEMORRHAGE DUE TO VASCULAR PROSTH DEV/GRFT, INIT (3) Dialysis AV fistula malfunction Code(s): T82.590A - [facility] COMPL OF SURGICALLY CREATED ARTERIOVENOUS FISTULA, INIT (4) ESRD on hemodialysis Code(s): N18.6 - END STAGE RENAL DISEASE; Z99.2 - DEPENDENCE ON RENAL DIALYSIS (5) HTN (hypertension) Code(s): I10 - ESSENTIAL (PRIMARY) HYPERTENSION (6) Anemia in ESRD (end-stage renal disease) Code(s): N18.6 - END STAGE RENAL DISEASE; D63.1 - ANEMIA IN CHRONIC KIDNEY DISEASE Assessment/Plan IMP RML NODULAR OPACITY LIKELY MALIGNANT, ?INFECTIOUS MRSA BACTEREMIA ESRD ON HD HTN S/P CVA R AV FISTULA ANEMIA THROMBOCYTOPENIA CHEST PAIN PLAN ABX PER ID F/U CHEST CT IN 3 WKS IF NO CHANGE RML OPACITY OBTAIN PET SCAN AND CT GUIDED BX DAILY WT MONITOR LYTES,CBC,PLT CT CARDIOLOGY EVALUATION DR MALDONADO Problem List - Problems (1) Lung nodule < 6cm on CT Code(s): R91.1 - SOLITARY PULMONARY NODULE (2) Bleeding from dialysis shunt Code(s): T82.838A - HEMORRHAGE DUE TO VASCULAR PROSTH DEV/GRFT, INIT (3) Dialysis AV fistula malfunction Code(s): T82.590A - [facility] COMPL OF SURGICALLY CREATED ARTERIOVENOUS FISTULA, INIT (4) ESRD on hemodialysis Code(s): N18.6 - END STAGE RENAL DISEASE; Z99.2 - DEPENDENCE ON RENAL DIALYSIS (5) HTN (hypertension) Code(s): I10 - ESSENTIAL (PRIMARY) HYPERTENSION (6) Anemia in ESRD (end-stage renal disease) Code(s): N18.6 - END STAGE RENAL DISEASE; D63.1 - ANEMIA IN CHRONIC KIDNEY DISEASE
[2018-06-16] MEDS ORDERED: SODIUM CHLORIDE 250 ML IV PRN (10:57)
[2018-06-16] MEDS ORDERED: MAGNESIUM OXIDE 400 MG TABLET (FP) PO ONE (11:36)
[2018-06-16] MEDS ORDERED: POTASSIUM CHLORIDE TABS 20 MEQ TABLET.ER (FP) PO ONE (11:36)
--- NOTE | 2018-06-16 11:40 | PN ---
Progress Note, Physician Chief Complaint: Mr Blackwood says he is feeling well today. Said he had chest pressure and epigastric pain overnight secondary to eating and lying down, this has currently resolved. Denies cp, sob, n/v. - Current Medication List Current Medications: Active Medications Acetaminophen (Tylenol -) 650 mg PO Q6H PRN PRN Reason: PAIN LEVEL 1-5 Last Admin: 06/16/18 04:07 Dose: 650 mg Amlodipine Besylate (Norvasc -) 10 mg PO DAILY [facility] Last Admin: 06/16/18 10:03 Dose: 10 mg Aspirin (Ecotrin -) 81 mg PO DAILY [facility] Last Admin: 06/16/18 10:03 Dose: 81 mg Bacitracin (Bacitracin -) 1 applic TP DAILY [facility] Last Admin: 06/16/18 10:03 Dose: 1 applic Calcitriol (Rocaltrol -) 0.5 mcg PO DAILY [facility] Doxazosin Mesylate (Cardura -) 2 mg PO BID [facility] Last Admin: 06/16/18 10:03 Dose: 2 mg Epoetin Stevie (Procrit -) 10,000 unit IVPUSH ONCE ONE Stop: 06/17/18 06:01 Heparin Sodium (Porcine) (Heparin -) 500 unit IVPUSH Q1H [facility] Stop: 06/17/18 10:01 Heparin Sodium (Porcine) (Heparin -) 500 unit IVPUSH ONCE ONE Stop: 06/17/18 06:01 Cefazolin Sodium (Ancef 1 Gm Premixed Ivpb -) 1 gm in 50 mls @ 100 mls/hr IVPB DAILY [facility] Last Admin: 06/16/18 10:04 Dose: 100 mls/hr Sodium Chloride (Normal Saline -) 250 mls @ 3,000 mls/hr IV PRN PRN PRN Reason: Hypotension during Dialysis Stop: 06/17/18 10:08 - Objective Vital Signs: Vital Signs Temperature 36.8 C 06/16/18 10:00 Pulse Rate 86 06/16/18 10:00 Respiratory Rate 18 06/16/18 10:00 Blood Pressure 138/96 06/16/18 10:00 O2 Sat by Pulse Oximetry (%) 96 06/16/18 09:00 Constitutional: Yes: No Distress, Calm, Obese Cardiovascular: Yes: Regular Rate and Rhythm. No: Gallop, Murmur, Rub Respiratory: Yes: Regular, CTA Bilaterally. No: Rales, Rhonchi, Wheezes Gastrointestinal: Yes: Normal Bowel Sounds, Soft. No: Distention, Tenderness Extremities: Yes: WNL Edema: No Labs: CBC, BMP 06/16/18 05:50 06/16/18 05:50 INR, PTT INR 1.24 (0.83-1.09) H 06/10/18 08:48 Problem List - Problems (1) Sepsis Code(s): A41.9 - SEPSIS, UNSPECIFIED ORGANISM (2) Bleeding from dialysis shunt Code(s): T82.838A - HEMORRHAGE DUE TO VASCULAR PROSTH DEV/GRFT, INIT (3) Lung nodule < 6cm on CT Code(s): R91.1 - SOLITARY PULMONARY NODULE (4) ESRD on hemodialysis Code(s): N18.6 - END STAGE RENAL DISEASE; Z99.2 - DEPENDENCE ON RENAL DIALYSIS (5) HTN (hypertension) Code(s): I10 - ESSENTIAL (PRIMARY) HYPERTENSION (6) Chest pain Code(s): R07.9 - CHEST PAIN, UNSPECIFIED (7) Hypokalemia Code(s): E87.6 - HYPOKALEMIA (8) Hypomagnesemia Code(s): E83.42 - HYPOMAGNESEMIA Assessment/Plan -case d/w Dr Blanco -patient is not keen on stress test, says he does not like it and thinks it was gas -will d/w cardiology tomorrow to see if patient agrees to stress test -replace K and Mg today orally -planning for HD tomorrow -continue current management -possible discharge tomorrow if patient declines stress test and can set up outpatient Abx
[2018-06-16] MEDS ORDERED: RANITIDINE HCL 150 MG TABLET (FP) PO ONE (20:25)
[2018-06-16] MEDS ORDERED: PT OWN MED DRAWER 7, Y5N ONE (21:00)
--- NOTE | 2018-06-16 21:48 | EKG ---
Test Reason : Blood Pressure : / mmHG Vent. Rate : 086 BPM Atrial Rate : 086 BPM P-R Int : 224 ms QRS Dur : 104 ms QT Int : 404 ms P-R-T Axes : 103 -41 088 degrees QTc Int : 483 ms SINUS RHYTHM WITH 1ST DEGREE A-V BLOCK WITH PREMATURE ATRIAL COMPLEXES LEFT AXIS DEVIATION PULMONARY DISEASE PATTERN INCOMPLETE RIGHT BUNDLE BRANCH BLOCK MINIMAL VOLTAGE CRITERIA FOR LVH, MAY BE NORMAL VARIANT PROLONGED QT ABNORMAL ECG WHEN COMPARED WITH ECG OF 10-JUN-2018 09:24, PREMATURE ATRIAL COMPLEXES ARE NOW PRESENT Confirmed by JANEE ESCOBAR, RANDY ([id number]) on 06/16/2018 9:47:58 PM Referred By: Confirmed By:RANDY WELLER MD
--- NOTE | 2018-06-17 08:37 | PN ---
Progress Note, Physician Chief Complaint: seen and examined Denies CP overnight We discussed performing a stress test to evaluate his sx over the weekend: he is "thinking about it" TELE: NSR 1st degree AV with occasional APCs. and one 3 beat run NSVT - Current Medication List Current Medications: Active Medications Acetaminophen (Tylenol -) 650 mg PO Q6H PRN PRN Reason: PAIN LEVEL 1-5 Last Admin: 06/16/18 04:07 Dose: 650 mg Amlodipine Besylate (Norvasc -) 10 mg PO DAILY [facility] Last Admin: 06/16/18 10:03 Dose: 10 mg Aspirin (Ecotrin -) 81 mg PO DAILY [facility] Last Admin: 06/16/18 10:03 Dose: 81 mg Bacitracin (Bacitracin -) 1 applic TP DAILY [facility] Last Admin: 06/16/18 10:03 Dose: 1 applic Calcitriol (Rocaltrol -) 0.5 mcg PO DAILY [facility] Doxazosin Mesylate (Cardura -) 2 mg PO BID [facility] Last Admin: 06/16/18 21:12 Dose: 2 mg Epoetin Stevie (Procrit -) 10,000 unit IVPUSH ONCE ONE Stop: 06/17/18 06:01 Heparin Sodium (Porcine) (Heparin -) 500 unit IVPUSH Q1H [facility] Stop: 06/17/18 10:01 Heparin Sodium (Porcine) (Heparin -) 500 unit IVPUSH ONCE ONE Stop: 06/17/18 06:01 Cefazolin Sodium (Ancef 1 Gm Premixed Ivpb -) 1 gm in 50 mls @ 100 mls/hr IVPB DAILY [facility] Last Admin: 06/16/18 10:04 Dose: 100 mls/hr Sodium Chloride (Normal Saline -) 250 mls @ 3,000 mls/hr IV PRN PRN PRN Reason: Hypotension during Dialysis Stop: 06/17/18 10:08 - Objective Vital Signs: Vital Signs Temperature 97.9 F 06/17/18 06:00 Pulse Rate 81 06/17/18 06:00 Respiratory Rate 18 06/17/18 06:00 Blood Pressure 132/93 06/17/18 06:00 O2 Sat by Pulse Oximetry (%) 97 06/16/18 21:00 Constitutional: Yes: No Distress Eyes: Yes: Conjunctiva Clear Cardiovascular: Yes: Regular Rate and Rhythm Respiratory: Yes: Other (decreased breath sounds at bases.) Gastrointestinal: Yes: Soft Edema: Yes Edema: LLE: 1+, RLE: 1+ Neurological: Yes: Alert, Oriented ...Motor Strength: WNL Labs: CBC, BMP 06/16/18 05:50 06/16/18 05:50 INR, PTT INR 1.24 (0.83-1.09) H 06/10/18 08:48 Laboratory Tests 06/16/18 06/16/18 06/16/18 02:10 05:50 05:50 WBC 9.1 Hgb 9.8 L Plt Count 141 Sodium 131 L Potassium 3.4 L BUN 44 H Creatinine 8.0 H* Magnesium 1.6 L Troponin I 0.06 H 0.06 H - ....Imaging EKG: Image Reviewed (NSR, first degree AV block, APCs. 3 beats NSVT.) Assessment/Plan 1. Chest pain -Chest tightness overnight resolved with NTG and belching -ECG on 06/16 showed NSR at 87/min with LAD and LVH -Initially admitted with Elevated trop (0.11->0.15), indeterminate range with a flat trend and now have decreased to 0.06. - history, EKG and symptoms not consistent with ACS - Have recommended a stress test prior to discharge and discussed with him today. He will consider it and give us a decision by afternoon today. If declines, will need to follow up closely as outpatient 2. Cardiomyopathy: -echo here showing mild dec lvef, new from echo 2017 -cont vol management with HD -would repeat echo as outpt after acute issues resolved and consider ischemic eval as noted above.
[2018-06-17] MEDS ORDERED: PT OWN MED DRAWER 7, Y5N ONE (09:29)
[2018-06-17] MEDS: ASPIRIN COATED 81 MG TABLET.EC PO SCH (09:52)
[2018-06-17] MEDS: BACITRACIN 15 GM TUBE TOPICAL OINTMENT TP SCH (09:53)
[2018-06-17] MEDS: DOXAZOSIN MESYLATE 2 MG TABLET (FP) PO SCH (10:01)
[2018-06-17] MEDS: amLODIPine BESYLATE 10 MG TABLET (FP) PO SCH (10:01)
[2018-06-17] MEDS: HEPARIN NA (PORCINE) 5,000 UNITS/ML 1ML VIAL IVPUSH SCH ×2 (11:22→12:49)
[2018-06-17 11:30] LABS: HEMATOCRIT 29.5 % (35.4-49); HEMOGLOBIN 9.8 GM/dL (11.7-16.9); MCH 32.4 pg (25.7-33.7); MCHC 33.1 g/dl (32.0-35.9); MEAN CELL VOLUME 97.8 fl (80-96); MEAN PLT VOLUME 9.6 fl (7.5-11.1); PLATELET COUNT 142 K/MM3 (134-434); RBC 3.02 M/mm3 (4.00-5.60); RDW 14.3 % (11.9-15.9); WHITE BLOOD COUNT 6.2 K/mm3 (4.0-10.0)
[2018-06-17] MEDS ORDERED: HEPARIN NA (PORCINE) 5,000 UNITS/ML 1ML VIAL IVPUSH ONE (11:30)
[2018-06-17] MEDS ORDERED: EPOETIN ALFA 10,000 UNIT/1 ML VIAL IVPUSH ONE (11:30)
--- NOTE | 2018-06-17 11:40 | PN ---
Progress Note, Physician History of Present Illness: pulmonary alert,comfortable on hd,-cp,-sob - Current Medication List Current Medications: Active Medications Acetaminophen (Tylenol -) 650 mg PO Q6H PRN PRN Reason: PAIN LEVEL 1-5 Last Admin: 06/16/18 04:07 Dose: 650 mg Amlodipine Besylate (Norvasc -) 10 mg PO DAILY [facility] Last Admin: 06/17/18 10:01 Dose: Not Given Aspirin (Ecotrin -) 81 mg PO DAILY [facility] Last Admin: 06/17/18 09:52 Dose: 81 mg Bacitracin (Bacitracin -) 1 applic TP DAILY [facility] Last Admin: 06/17/18 09:53 Dose: 1 applic Calcitriol (Rocaltrol -) 0.5 mcg PO DAILY [facility] Last Admin: 06/17/18 09:53 Dose: 0.5 mcg Doxazosin Mesylate (Cardura -) 2 mg PO BID [facility] Last Admin: 06/17/18 10:01 Dose: Not Given Heparin Sodium (Porcine) (Heparin -) 500 unit IVPUSH Q1H [facility] Stop: 06/17/18 13:01 Last Admin: 06/17/18 11:22 Dose: 500 unit Cefazolin Sodium (Ancef 1 Gm Premixed Ivpb -) 1 gm in 50 mls @ 100 mls/hr IVPB DAILY [facility] Last Admin: 06/16/18 10:04 Dose: 100 mls/hr - Objective Vital Signs: Vital Signs Temperature 97.4 F L 06/17/18 10:05 Pulse Rate 83 06/17/18 10:40 Respiratory Rate 18 06/17/18 10:40 Blood Pressure 92/63 06/17/18 10:40 O2 Sat by Pulse Oximetry (%) 97 06/17/18 09:00 Constitutional: Yes: Well Nourished, Calm Eyes: Yes: WNL HENT: Yes: WNL Neck: Yes: WNL Cardiovascular: Yes: Regular Rate and Rhythm, S1, S2 Respiratory: Yes: CTA Bilaterally Gastrointestinal: Yes: Normal Bowel Sounds, Soft Musculoskeletal: Yes: Muscle Weakness Edema: Yes Labs: CBC, BMP 06/17/18 10:30 INR, PTT INR 1.24 (0.83-1.09) H 06/10/18 08:48 Problem List - Problems (1) Lung nodule < 6cm on CT Code(s): R91.1 - SOLITARY PULMONARY NODULE (2) Bleeding from dialysis shunt Code(s): T82.838A - HEMORRHAGE DUE TO VASCULAR PROSTH DEV/GRFT, INIT (3) Dialysis AV fistula malfunction Code(s): T82.590A - MECH COMPL OF SURGICALLY CREATED ARTERIOVENOUS FISTULA, INIT (4) ESRD on hemodialysis Code(s): N18.6 - END STAGE RENAL DISEASE; Z99.2 - DEPENDENCE ON RENAL DIALYSIS (5) HTN (hypertension) Code(s): I10 - ESSENTIAL (PRIMARY) HYPERTENSION (6) Anemia in ESRD (end-stage renal disease) Code(s): N18.6 - END STAGE RENAL DISEASE; D63.1 - ANEMIA IN CHRONIC KIDNEY DISEASE Assessment/Plan IMP RML NODULAR OPACITY LIKELY MALIGNANT, ?INFECTIOUS MRSA BACTEREMIA ESRD ON HD HTN S/P CVA R AV FISTULA ANEMIA THROMBOCYTOPENIA CHEST PAIN PLAN ABX PER ID F/U CHEST CT IN 3 WKS IF NO CHANGE RML OPACITY OBTAIN PET SCAN AND CT GUIDED BX DAILY WT MONITOR LYTES,CBC,PLT CT HD PER RENAL DR MALDONADO Problem List - Problems (1) Lung nodule < 6cm on CT Code(s): R91.1 - SOLITARY PULMONARY NODULE (2) Bleeding from dialysis shunt Code(s): T82.838A - HEMORRHAGE DUE TO VASCULAR PROSTH DEV/GRFT, INIT (3) Dialysis AV fistula malfunction Code(s): T82.590A - MECH COMPL OF SURGICALLY CREATED ARTERIOVENOUS FISTULA, INIT (4) ESRD on hemodialysis Code(s): N18.6 - END STAGE RENAL DISEASE; Z99.2 - DEPENDENCE ON RENAL DIALYSIS (5) HTN (hypertension) Code(s): I10 - ESSENTIAL (PRIMARY) HYPERTENSION (6) Anemia in ESRD (end-stage renal disease) Code(s): N18.6 - END STAGE RENAL DISEASE; D63.1 - ANEMIA IN CHRONIC KIDNEY DISEASE
[2018-06-17 11:49] LABS: ANION GAP 9 MMOL/L (8-16); BLOOD UREA NITROGEN 35 mg/dL (7-18); CHLORIDE 101 mmol/L (98-107); CO2 28 mmol/L (21-32); CREATININE 6.4 mg/dL (0.55-1.3); GLUCOSE,RANDOM 136 mg/dL (74-106); PHOSPHOROUS 2.1 mg/dL (2.5-4.9); SODIUM 138 mmol/L (136-145)
--- NOTE | 2018-06-17 12:17 | PN ---
Progress Note, Physician History of Present Illness: SUPINE IN BED RECEIVING HD NO COMPLAINTS NO F/C NO C/O COUGH/ SPUTUM AFEBRILE WBC WNL BC (5/2) NO GROWTH - Current Medication List Current Medications: Active Medications Acetaminophen (Tylenol -) 650 mg PO Q6H PRN PRN Reason: PAIN LEVEL 1-5 Last Admin: 06/16/18 04:07 Dose: 650 mg Amlodipine Besylate (Norvasc -) 10 mg PO DAILY [facility] Last Admin: 06/17/18 10:01 Dose: Not Given Aspirin (Ecotrin -) 81 mg PO DAILY [facility] Last Admin: 06/17/18 09:52 Dose: 81 mg Bacitracin (Bacitracin -) 1 applic TP DAILY [facility] Last Admin: 06/17/18 09:53 Dose: 1 applic Calcitriol (Rocaltrol -) 0.5 mcg PO DAILY [facility] Last Admin: 06/17/18 09:53 Dose: 0.5 mcg Doxazosin Mesylate (Cardura -) 2 mg PO BID [facility] Last Admin: 06/17/18 10:01 Dose: Not Given Heparin Sodium (Porcine) (Heparin -) 500 unit IVPUSH Q1H [facility] Stop: 06/17/18 13:01 Last Admin: 06/17/18 11:22 Dose: 500 unit Cefazolin Sodium (Ancef 1 Gm Premixed Ivpb -) 1 gm in 50 mls @ 100 mls/hr IVPB DAILY [facility] Last Admin: 06/16/18 10:04 Dose: 100 mls/hr Cefazolin Sodium 2 gm/ Sodium (Chloride) 100 mls @ 200 mls/hr IVPB ONCE ONE Stop: 06/17/18 12:59 - Objective Vital Signs: Vital Signs Temperature 97.4 F L 06/17/18 10:05 Pulse Rate 83 06/17/18 10:40 Respiratory Rate 18 06/17/18 10:40 Blood Pressure 92/63 06/17/18 10:40 O2 Sat by Pulse Oximetry (%) 97 06/17/18 09:00 Constitutional: Yes: No Distress Eyes: Yes: Conjunctiva Clear Cardiovascular: Yes: Regular Rate and Rhythm, S1, S2 Respiratory: Yes: CTA Bilaterally Gastrointestinal: Yes: Normal Bowel Sounds, Soft. No: Tenderness Labs: CBC, BMP 06/17/18 10:30 06/17/18 10:30 INR, PTT INR 1.24 (0.83-1.09) H 06/10/18 08:48 Assessment/Plan MSSA BACTEREMIA ? GRAFT SOURCE S/P FISTULAPLASTY/ STENT PLACEMENT ESRD ADVISE ORGAN TEACHER TREATMENT WITH CEFAZOLIN (6W) FOR BACTEREMIA/ POSSIBLE ENDOVASCULAR INFECTION CEFAZOLIN 2GM AFTER HD M-W, 3GM AFTER HD F ADDITIONAL 5W ( LAST+BC 06/11)
[2018-06-17] MEDS ORDERED: CEFAZOLIN 2 GM in SODIUM CHLORIDE 100 ML IVPB ONE (12:30)
[2018-06-17] MEDS: CEFAZOLIN 1 GM/D5W 1 GM/50 ML BAG IVPB SCH (12:33)
[2018-06-17 13:00] VITALS: BMI 28.4
[2018-06-17 14:34] VITALS: BP 91/63; PULSE 85; TEMP 97.3
--- NOTE | 2018-06-17 15:36 | PN ---
Progress Note (short form) - Note Progress Note: Renal follow up for ESRD on HD Pt seen and examined at the bedside during dialysis BP stable, access with good flow UF 2L as tolerated no acute complaints no sob, cp, abd pian, N/V/D, fever Vital Signs Temperature 97.3 F L 06/17/18 14:33 Pulse Rate 85 06/17/18 14:33 Respiratory Rate 18 06/17/18 14:33 Blood Pressure 91/63 06/17/18 14:33 O2 Sat by Pulse Oximetry (%) 97 06/17/18 09:00 Intake & Output 06/14/18 06/15/18 06/16/18 06/17/18 23:59 23:59 23:59 23:59 Intake Total 300 620 520 660 Output Total 2 Balance 298 620 520 660 Weight 76.43 kg 75.296 kg 77.564 kg NAD RRR, no M/R CTA soft NT/ND no LE edema CBC, BMP 06/17/18 10:30 06/17/18 10:30 Current Medications Acetaminophen (Tylenol -) 650 mg PO Q6H PRN PRN Reason: PAIN LEVEL 1-5 Last Admin: 06/16/18 04:07 Dose: 650 mg Amlodipine Besylate (Norvasc -) 10 mg PO DAILY [facility] Last Admin: 06/17/18 10:01 Dose: Not Given Aspirin (Ecotrin -) 81 mg PO DAILY [facility] Last Admin: 06/17/18 09:52 Dose: 81 mg Bacitracin (Bacitracin -) 1 applic TP DAILY [facility] Last Admin: 06/17/18 09:53 Dose: 1 applic Calcitriol (Rocaltrol -) 0.5 mcg PO DAILY [facility] Last Admin: 06/17/18 09:53 Dose: 0.5 mcg Doxazosin Mesylate (Cardura -) 2 mg PO BID [facility] Last Admin: 06/17/18 10:01 Dose: Not Given Cefazolin Sodium (Ancef 1 Gm Premixed Ivpb -) 1 gm in 50 mls @ 100 mls/hr IVPB DAILY [facility] Last Admin: 06/17/18 12:33 Dose: Not Given 72 year old gentleman with hx of ESRD on HD (MWF), CVA, hypertension who presented with bleeding from AVF site. #ESRD on HD #Bleeding from AVF site r/o stenosis #Metabolic acidosis #Hypertension #Elevated troponin level Tolerating HD well this AM pt grew MSSA from blood cultures, repeat cultures from 06/13 remain negative will continue Ancef with HD until July 23 continue present antihypertensives will continue LIA with HD discharge planning as per primary Thank you Gerard Trejo DO
--- NOTE | 2018-06-17 15:45 | DS ---
Physical Exam: SUBJECTIVE: Patient seen and examined at bedside. Offers no complaints at this time. OBJECTIVE: Vital Signs Temperature 97.3 F L 06/17/18 14:33 Pulse Rate 85 06/17/18 14:33 Respiratory Rate 18 06/17/18 14:33 Blood Pressure 91/63 06/17/18 14:33 O2 Sat by Pulse Oximetry (%) 97 06/17/18 09:00 PHYSICAL EXAM GENERAL: The patient is awake, alert, and fully oriented, in no acute distress. EYES: extraocular movements intact, sclera anicteric, conjunctiva clear. LUNGS: Breath sounds equal, clear to auscultation bilaterally HEART: Regular rate and rhythm, S1, S2 ABDOMEN: Soft, nontender, nondistended, normoactive bowel sounds. EXTREMITIES: warm, well-perfused, no edema. NEUROLOGICAL: Cranial nerves II through XII grossly intact. Normal speech, gait not observed. PSYCH: Normal mood, normal affect. SKIN: Warm, dry LABS Laboratory Results - last 24 hr 06/17/18 06/17/18 10:30 10:30 WBC 6.2 RBC 3.02 L Hgb 9.8 L Hct 29.5 L MCV 97.8 H MCH 32.4 MCHC 33.1 RDW 14.3 Plt Count 142 MPV 9.6 Sodium 138 Potassium 3.0 L Chloride 101 Carbon Dioxide 28 Anion Gap 9 BUN 35 H Creatinine 6.4 H Creat Clearance w eGFR 8.62 Random Glucose 136 H Calcium 7.0 L Phosphorus 2.1 L HOSPITAL COURSE: Date of Admission:06/12/18 Date of Discharge: 06/17/18 72 year old male with a PMHx of ESRD on HD (MWF), CVA (no residual deficits), HTN, presented to the hospital after he had bleeding from fistula in right arm. 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 Course of hospitalization was complicated by fevers and positive blood cultures with Staph aureus (MSSA) and was treated with cefazolin. He also had echo done which did not show signs of endocarditis but did show grade II diastolic dysfunction and LVEF of 45-50% and pulmonary artery systolic pressure of at least 60 mmHg. Pt also developed chest pressure during hospitalization and but did not get stress testing done here but has agreed to do it as an outpatient with cardiology. He will be discharged to take CEFAZOLIN 2GM AFTER HD M-W and 3GM AFTER HD F for 5 more weeks after discharge (for a total of 6 weeks of abx). Pt is to f/u with his PCP within 1 week, f/u with vascular surgery and cardiology within 2 weeks and to f/u with mica splitter after discharge. Minutes to complete discharge: 45 Discharge Summary Reason For Visit: ELEVATED TROPONIN LEVEL Current Active Problems Bleeding from dialysis shunt (Acute) Chest pain (Acute) Cough (Acute) Dialysis AV fistula malfunction (Acute) Hypokalemia (Acute) Hypomagnesemia (Acute) Lung nodule < 6cm on CT (Acute) Sepsis (Acute) ESRD on hemodialysis (Chronic) HTN (hypertension) (Chronic) Condition: Good - Instructions Diet, Activity, Other Instructions: Merced Reyna, you were admitted to the hospital for bleeding from your fistula and for elevated cardiac enzymes. Your fistula was repaitres and you also had dialysis done. You clinically improved and we would like you to continue antibiotics. MEDICATIONS; You are to take CEFAZOLIN 2 gras AFTER dialysis on Sunday and Sunday and 3 grams after dialysis on Fridays for a total of 5 more weeks. Please continue to take all the medications that you were taking before coming to the hospital. REFERRALS: Please see your primary care physician in a week. Please continue to have dialysis on Sunday, Sunday and Sunday and follow up with Slat Basket Maker Helper. Please see Vascular Surgeon in 2 weeks. Please see Tube Bender in 2 weeks to obtain another ECHO in the future. If you notice bleeding from fistula or any other place, dizziness, shortness of breath, chest pain or worsening of any of your symptoms, call 911, or come to Emergency Room as soon as possible. Referrals: Pop Rangel MD [Staff Physician] - Gerard Trejo MD [Staff Physician] - Chato Lovett MD [Primary Care Provider] - Bryce Mello MD [Staff Physician] - - Home Medications Comprehensive Discharge Medication List: Ambulatory Orders Amlodipine Besylate [Norvasc -] 10 mg PO DAILY 03/29/14 Calcium Acetate [Phoslo] 2 tab PO TID 03/29/14 Doxazosin Mesylate [Cardura -] 2 mg PO BID 02/15/15 Aspirin Coated [Ecotrin -] 81 mg PO DAILY #30 tab 06/09/16 Amoxicillin/Potassium Clav [Augmentin 875-125 Tablet] 1 each PO BID 7 Days #14 tablet 06/12/18 This patient is new to me today: Yes Date on this admission: 06/17/18 Emergency Visit: Yes ED Registration Date: 06/12/18 Care time: The patient presented to the Emergency Department on the above date and was hospitalized for further evaluation of their emergent condition. Critical Care patient: No - Discharge Referral Referred to [facility] Med P.C.: No
--- NOTE | 2018-06-17 15:48 | PN ---
Teaching Attending Note Name of Resident: Jesus Rizvi ATTENDING PHYSICIAN STATEMENT I saw and evaluated the patient. I reviewed the resident's note and discussed the case with the resident. I agree with the resident's findings and plan as documented. OBJECTIVE: Gen: nad, obese Pulm: ctab w/o w/r/r CV: rrr w/o m/r/g Abd: +bs, s/nt/nd Ext: no c/c/e Please refer to discharge summary for full hospital course. Mr Blackwood came in with a bleeding fistula, this was repaired but he became septic. Seen by SHAMAR, jovita HOPKINS. Will need full course of ancef, to continue after HD for 5 weeks. Seen by cardiology and declined stress test, will perform as an outpatient. Problem List - Problems (1) Sepsis Code(s): A41.9 - SEPSIS, UNSPECIFIED ORGANISM (2) Bleeding from dialysis shunt Code(s): T82.838A - HEMORRHAGE DUE TO VASCULAR PROSTH DEV/GRFT, INIT (3) Lung nodule < 6cm on CT Code(s): R91.1 - SOLITARY PULMONARY NODULE (4) ESRD on hemodialysis Code(s): N18.6 - END STAGE RENAL DISEASE; Z99.2 - DEPENDENCE ON RENAL DIALYSIS (5) HTN (hypertension) Code(s): I10 - ESSENTIAL (PRIMARY) HYPERTENSION (6) Chest pain Code(s): R07.9 - CHEST PAIN, UNSPECIFIED (7) Hypokalemia Code(s): E87.6 - HYPOKALEMIA (8) Hypomagnesemia Code(s): E83.42 - HYPOMAGNESEMIA
== END 2018-06-17 18:25 | disposition home or self-care (01) | DRG 252 ==
LOC: JER 06:57 → JERBED 11:13 → J6S 20:57 → OBSVTOIN 06-12 14:08 → UNDODISIN 06-13 18:04 → J4S 06-16 03:42
PROVIDERS: ADMIT Hospitalist; ATTEND Internal Medicine
PROC: 5A1D70Z Performance of Urinary Filtration, Intermittent, Less than 6 Hours Per Day (ICD-10-PCS; 2018-06-10)
PROC: 5A1D70Z Performance of Urinary Filtration, Intermittent, Less than 6 Hours Per Day (ICD-10-PCS; 2018-06-12)
PROC: 05753DZ Dilation of Right Subclavian Vein with Intraluminal Device, Percutaneous Approach (ICD-10-PCS; principal; 2018-06-14)
PROC: B50MYZZ Plain Radiography of Right Upper Extremity Veins using Other Contrast (ICD-10-PCS; 2018-06-14)
PROC: 5A1D70Z Performance of Urinary Filtration, Intermittent, Less than 6 Hours Per Day (ICD-10-PCS; 2018-06-14)
PROC: 5A1D70Z Performance of Urinary Filtration, Intermittent, Less than 6 Hours Per Day (ICD-10-PCS; 2018-06-17)
DX: T82.7XXA Infection and inflammatory reaction due to other cardiac and vascular devices, implants and grafts, initial encounter (principal); N18.6 End stage renal disease; J18.9 Pneumonia, unspecified organism; A41.01 Sepsis due to Methicillin susceptible Staphylococcus aureus; J98.11 Atelectasis; I42.8 Other cardiomyopathies; E87.2 Acidosis; I12.0 Hypertensive chronic kidney disease with stage 5 chronic kidney disease or end stage renal disease; T82.838A Hemorrhage due to vascular prosthetic devices, implants and grafts, initial encounter; T82.858A Stenosis of other vascular prosthetic devices, implants and grafts, initial encounter; Y83.8 Other surgical procedures as the cause of abnormal reaction of the patient, or of later complication, without mention of misadventure at the time of the procedure; R50.82 Postprocedural fever; I16.0 Hypertensive urgency; D63.1 Anemia in chronic kidney disease; M25.519 Pain in unspecified shoulder; D69.6 Thrombocytopenia, unspecified; R91.1 Solitary pulmonary nodule; E87.6 Hypokalemia; E83.42 Hypomagnesemia; I44.0 Atrioventricular block, first degree; Z99.2 Dependence on renal dialysis; R50.9 Fever, unspecified
CPT/HCPCS: 36415; 71045-TC-FY; 71046-TC-FY; 71250-TC; 73030-TC-LT-FY; 76000-TC-FY; 76882-TC-RT-FY; 80048; 80053; 82550; 82553; 83735; 84100; 84484; 85025; 85027; 85610; 85730; 86704; 86706; 86708; 86803; 87040; 87186; 87340; 87804; 87807; 93005; 93010; 93306-TC; 94010; 94760; 94761; 97116-GP; 97162-GP; 99282-25; G0378; G0480; J0885; J1644; J7030

== ENCOUNTER 2019-07-30 06:02 | Observation (INO) | payer OTHER, BC ==
[2019-07-30 06:55] LABS: BASO % 0.7 % (0-2.0); EOS % 6.2 % (0-4.5); HEMATOCRIT 22.7 % (35.4-49); HEMOGLOBIN 7.5 GM/dL (11.7-16.9); LYMPH % 15.4 % (8-40); MCH 32.5 pg (25.7-33.7); MCHC 32.9 g/dl (32.0-35.9); MEAN CELL VOLUME 98.8 fl (80-96); MONO % 14.4 % (3.8-10.2); NEUT % 63.3 % (42.8-82.8); PLATELET COUNT 154 K/MM3 (134-434); RDW 15.9 % (11.9-15.9); WHITE BLOOD COUNT 6.3 K/mm3 (4.0-10.0)
[2019-07-30 07:24] LABS: ALBUMIN 3.5 g/dl (3.4-5.0); BILIRUBIN,TOTAL 0.4 mg/dL (0.2-1); BLOOD UREA NITROGEN 37.7 mg/dL (7-18); CALCIUM 7.4 mg/dL (8.5-10.1); POTASSIUM 4.8 mmol/L (3.5-5.1); TOT PROT 6.9 g/dl (6.4-8.2)
[2019-07-30 08:10] LABS: CREATININE 9.2 mg/dL (0.55-1.3)
[2019-07-30] MEDS ORDERED: ASPIRIN 81 MG CHEWABLE TABLETS PO ONE ×2 (09:50→10:28)
[2019-07-30] MEDS ORDERED: ASPIRIN 81 MG CHEWABLE TABLETS ONE ×2 (09:58→13:22)
[2019-07-30] MEDS ORDERED: MORPHINE SULFATE 2 MG/ML VIAL IVPUSH PRN (10:29)
[2019-07-30] MEDS ORDERED: NITROGLYCERIN SUBLINGUAL 1/150 0.4 MG TAB SL PRN (10:29)
[2019-07-30] MEDS ORDERED: METOPROLOL TARTRATE 5 MG/5 ML VIAL IVPUSH PRN (10:42)
[2019-07-30] MEDS ORDERED: METOPROLOL TARTRATE 25 MG TABLET (FP) ONE (12:42)
[2019-07-30] MEDS ORDERED: amLODIPine BESYLATE 5 MG TABLET (FP) ONE (12:43)
[2019-07-30] MEDS ORDERED: PANTOPRAZOLE 40 MG TABLET ONE (12:43)
[2019-07-30] MEDS: amLODIPine BESYLATE 10 MG TABLET (FP) PO SCH (13:30)
[2019-07-30] MEDS: METOPROLOL TARTRATE 25 MG TABLET (FP) PO SCH ×2 (13:30→22:54)
[2019-07-30] MEDS: PANTOPRAZOLE 40 MG TABLET PO SCH (13:30)
[2019-07-30] MEDS: CALCIUM ACETATE 667 MG CAPSULE (FP) PO SCH ×2 (14:00→22:54)
[2019-07-30 18:08] VITALS: BMI 27.1
[2019-07-30] MEDS: DOXAZOSIN MESYLATE 2 MG TABLET PO SCH (22:58)
[2019-07-31] MEDS: CALCIUM ACETATE 667 MG CAPSULE (FP) PO SCH ×3 (06:07→21:33)
[2019-07-31] MEDS ORDERED: SODIUM CHLORIDE 250 ML IV PRN (07:00)
[2019-07-31] MEDS ORDERED: EPOETIN ALFA 20,000 UNIT/1 ML VIAL SQ ONE (07:00)
[2019-07-31 08:23] LABS: HEMATOCRIT 22.3 % (35.4-49); HEMOGLOBIN 7.4 GM/dL (11.7-16.9); MCH 32.7 pg (25.7-33.7); MCHC 33.1 g/dl (32.0-35.9); MEAN CELL VOLUME 98.9 fl (80-96); PLATELET COUNT 150 K/MM3 (134-434); RBC 2.26 M/mm3 (4.00-5.60); RDW 15.7 % (11.9-15.9); WHITE BLOOD COUNT 7.4 K/mm3 (4.0-10.0)
[2019-07-31 08:33] LABS: PROTHROMBIN TIME (PATIENT) 54.6 SEC (9.7-13.0)
[2019-07-31 08:49] LABS: INR 4.56 (0.83-1.09)
[2019-07-31 08:53] LABS: BLOOD UREA NITROGEN 40.7 mg/dL (7-18); CALCIUM 7.6 mg/dL (8.5-10.1); POTASSIUM 4.6 mmol/L (3.5-5.1)
[2019-07-31 08:58] LABS: CREATININE 8.6 mg/dL (0.55-1.3)
[2019-07-31] MEDS ORDERED: ASPIRIN 81 MG CHEWABLE TABLETS PO SCH (10:00)
[2019-07-31] MEDS ORDERED: PT OWN MED DRAWER 7, Y5N ONE (10:42)
[2019-07-31] MEDS: DOXAZOSIN MESYLATE 2 MG TABLET PO SCH ×2 (11:50→21:37)
[2019-07-31] MEDS: amLODIPine BESYLATE 10 MG TABLET (FP) PO SCH (11:51)
[2019-07-31] MEDS: METOPROLOL TARTRATE 25 MG TABLET (FP) PO SCH ×2 (11:51→21:35)
[2019-07-31] MEDS: PANTOPRAZOLE 40 MG TABLET PO SCH (11:51)
[2019-07-31] MEDS: PANTOPRAZOLE 20 MG TABLET PO SCH (21:34)
[2019-07-31] MEDS ORDERED: PANTOPRAZOLE SODIUM 40 MG VIAL IVPUSH SCH (22:00)
[2019-07-31] MEDS ORDERED: ATORVASTATIN CA 80 MG TABLET (FP) PO SCH (22:00)
[2019-08-01] MEDS: CALCIUM ACETATE 667 MG CAPSULE (FP) PO SCH ×2 (06:01→14:42)
[2019-08-01] MEDS ORDERED: PT OWN MED DRAWER 7, Y5N ONE (08:32)
[2019-08-01] MEDS: METOPROLOL TARTRATE 25 MG TABLET (FP) PO SCH (09:12)
[2019-08-01] MEDS: PANTOPRAZOLE 20 MG TABLET PO SCH (09:12)
[2019-08-01] MEDS: DOXAZOSIN MESYLATE 2 MG TABLET PO SCH (09:13)
[2019-08-01] MEDS: amLODIPine BESYLATE 10 MG TABLET (FP) PO SCH (09:13)
[2019-08-01 13:29] LABS: INR 2.33 (0.83-1.09); PROTHROMBIN TIME (PATIENT) 27.7 SEC (9.7-13.0)
[2019-08-01] MEDS ORDERED: SODIUM CHLORIDE 250 ML IV PRN (15:01)
[2019-08-01 17:07] VITALS: TEMP 97.4
[2019-08-01 17:21] LABS: HEMATOCRIT 22.4 % (35.4-49); HEMOGLOBIN 7.5 GM/dL (11.7-16.9); MCH 33.1 pg (25.7-33.7); MCHC 33.2 g/dl (32.0-35.9); MEAN CELL VOLUME 99.6 fl (80-96); MEAN PLT VOLUME 8.7 fl (7.5-11.1); PLATELET COUNT 108 K/MM3 (134-434); RBC 2.25 M/mm3 (4.00-5.60); WHITE BLOOD COUNT 7.4 K/mm3 (4.0-10.0)
[2019-08-01 17:57] LABS: BLOOD UREA NITROGEN 36.8 mg/dL (7-18); POTASSIUM 3.9 mmol/L (3.5-5.1)
[2019-08-01 18:07] LABS: CALCIUM 6.9 mg/dL (8.5-10.1); CREATININE 8.1 mg/dL (0.55-1.3)
[2019-08-01 19:29] VITALS: BP 93/63; PULSE 83
[2019-08-02] MEDS ORDERED: amLODIPine BESYLATE 5 MG TABLET (FP) PO SCH (10:00)
== END 2019-08-01 20:30 | disposition left against medical advice (07) ==
LOC: JER 06:02 → JERBED 10:06 → J4S 18:25
PROVIDERS: ADMIT Internal Medicine; ATTEND Internal Medicine
PROC: 3E023GC Introduction of Other Therapeutic Substance into Muscle, Percutaneous Approach (ICD-10-PCS; principal; 2019-07-30)
DX: I13.2 Hypertensive heart and chronic kidney disease with heart failure and with stage 5 chronic kidney disease, or end stage renal disease (principal); N18.6 End stage renal disease; I50.20 Unspecified systolic (congestive) heart failure; N17.9 Acute kidney failure, unspecified; Z99.2 Dependence on renal dialysis; Z87.891 Personal history of nicotine dependence; I48.91 Unspecified atrial fibrillation; Z79.01 Long term (current) use of anticoagulants; K92.1 Melena; Z86.73 Personal history of transient ischemic attack (TIA), and cerebral infarction without residual deficits; Z88.8 Allergy status to other drugs, medicaments and biological substances
CPT/HCPCS: 36415; 36430; 71046-TC-FY; 80048; 80053; 80061; 82272; 82550; 82553; 82728; 83540; 83550; 83721; 84484; 85025; 85027; 85610; 86803; 86850; 86900; 86901; 86922; 87340; 93005; 93010; 93306-TC; 96372; 99285-25; G0378; J0885; P9058; U0003

== ENCOUNTER 2019-08-11 05:56 | Inpatient (IN) | payer OTHER, BC ==
[2019-08-11] MEDS ORDERED: dilTIAZem HCL 50 MG/10 ML - 10 ML VIAL IVPUSH ONE (06:51)
[2019-08-11] MEDS ORDERED: dilTIAZem HCL 125 MG/25 ML - 25 ML VIAL ONE (06:53)
--- NOTE | 2019-08-11 06:56 | PDOC ---
Rapid Medical Evaluation Chief Complaint: Bleeding from Anus Time Seen by Provider: 08/11/19 06:35 Medical Evaluation: Allergies Allergy/AdvReac Type Severity Reaction Status Date / Time ramipril Allergy Severe Swelling Verified 07/30/19 06:13 Vital Signs Temp Pulse Resp BP Pulse Ox 97.4 F L 120 H 18 118/72 98 08/11/19 06:18 08/11/19 06:18 08/11/19 06:18 08/11/19 06:18 08/11/19 06:18 08/11/19 06:52 Patient is 74M with complex medical history including afib on coumadin, esrd and recent admission for anemia. Left AMA from that admission declining endoscopy and colonoscopy. Coming in today complaining of BRBPR during defecation. Patient unsure of what medication he takes and when he took it. Exam: irregular HR in 120s/130s, BPs stable, mentation normal EKG shows afib with rate of 122. No st elevations. ST depressions in lateral eloina ds. T wave inversions in I, aVL. Will order 10 of diltiazem for afib with rvr. Discharge Disposition - Diagnosis Bright red blood per rectum, Atrial fibrillation with RVR - Discharge Dispostion Condition at time of disposition: Stable Last Admission D/C Date: 06/17/18 - Referrals Referrals: Gaye Cho MD [Primary Care Provider] - - Patient Instructions - Post Discharge Activity
[2019-08-11 07:01] LABS: BASO % 0.5 % (0-2.0); EOS % 3.9 % (0-4.5); HEMATOCRIT 20.9 % (35.4-49); HEMOGLOBIN 6.8 GM/dL (11.7-16.9); LYMPH % 12.1 % (8-40); MCH 32.5 pg (25.7-33.7); MCHC 32.3 g/dl (32.0-35.9); MEAN CELL VOLUME 100.6 fl (80-96); MEAN PLT VOLUME 8.8 fl (7.5-11.1); NEUT % 72.5 % (42.8-82.8); PLATELET COUNT 149 K/MM3 (134-434); RBC 2.07 M/mm3 (4.00-5.60); RDW 15.2 % (11.9-15.9)
[2019-08-11 07:05] LABS: WHITE BLOOD COUNT 8.2 K/mm3 (4.0-10.0)
[2019-08-11 07:09] LABS: INR 1.08 (0.83-1.09); PROTHROMBIN TIME (PATIENT) 12.7 SEC (9.7-13.0)
[2019-08-11 07:12] LABS: ACTIVATED PTT 30.8 SECONDS (25.2-36.5)
--- NOTE | 2019-08-11 07:39 | PDOC ---
History of Present Illness - General Chief Complaint: Bleeding from Anus Stated Complaint: RECTAL BLEEDING Time Seen by Provider: 08/11/19 06:35 - History of Present Illness Initial Comments: Daniel Blackwood is a 73 y/o male with PMH significant ESRD on HD (M/W/F), CVA (no residual deficits), HTN, a-fib (on coumadin), recently admitted for r/o ACS and GI bleed (s/p transfusion) and left AMA 10 days ago, presenting today at 's request and with concerns for blood with bowel movement. No bleeding when not having bowel movements. Denies headache/dizziness/chest pain/shortness of breath/abd pain/dysuria/leg swelling. Past History - Medical History Allergies/Adverse Reactions: Allergies Allergy/AdvReac Type Severity Reaction Status Date / Time ramipril Allergy Severe Swelling Verified 07/30/19 06:13 Home Medications: Ambulatory Orders Diltiazem Cd [Cardizem Cd -] 240 mg PO DAILY 07/30/19 Warfarin Na [Coumadin] 7 mg PO ASDIR 07/30/19 Warfarin Sodium 5 mg PO ASDIR 07/30/19 Anemia: No Asthma: No Cancer: No Cardiac Disorders: No CVA: No COPD: No CHF: No Dementia: No Diabetes: No Dialysis: Yes (mwf) GI Disorders: Yes (AV FISTULA RIGHT ARM (M,W,F)) Disorders: No HTN: Yes Hypercholesterolemia: Yes Liver Disease: No Seizures: No Thyroid Disease: No - Surgical History Abdominal Surgery: No Appendectomy: No Cardiac Surgery: No Cholecystectomy: No Lung Surgery: No Neurologic Surgery: No Orthopedic Surgery: No - Immunization History Immunization Up to Date: Yes - Psycho-Social/Smoking History Smoking History: Unknown if ever smoked Have you smoked in the past 12 months: No If you are a former smoker, when did you quit?: 50YRS AGO - Substance Abuse Hx (Audit-C & DAST Scrn) How often the patient has a drink containing alcohol: Never Score: In Men: 4 or > Positive; In Women: 3 or > Positive: 0 Screen Result (Pos requires Nsg. Audit-10AR): Negative In the last yr the pt used illegal drug/Rx for NonMed reason: No Score: Yes response is considered Positive: 0 Screen Result (Positive result requires Nsg. DAST-10): Negative Review of Systems - Review of Systems Comments:: GENERAL/CONSTITUTIONAL: No fever or chills. No weakness._ HEAD, EYES, EARS, NOSE AND THROAT: No change in vision. No change in hearing. No sore throat._ CARDIOVASCULAR: No chest pain or shortness of breath_ RESPIRATORY: Denies cough, hemoptysis_ GASTROINTESTINAL: No nausea, vomiting. Reports blood in the stool. GENITOURINARY: No dysuria, frequency, or change in urination._ MUSCULOSKELETAL: No joint or muscle swelling or pain. No neck or back pain._ SKIN: No rash_ NEUROLOGIC: No headache, vertigo, loss of consciousness, or change in strength /sensation._ ENDOCRINE: No increased thirst. No abnormal weight change_ ALLERGIC/IMMUNOLOGIC: No hives or skin allergy._ *Physical Exam - Vital Signs Last Vital Signs Temp Pulse Resp BP Pulse Ox 97.4 F L 102 H 15 96/72 99 08/11/19 06:18 08/11/19 07:10 08/11/19 07:10 08/11/19 07:10 08/11/19 07:10 - Physical Exam GENERAL: Awake, alert, and oriented to person/place/time, in no acute distress_ HEAD: No signs of trauma, normocephalic, atraumatic _ EYES: PERRLA, EOMI, sclera anicteric, conjunctiva clear_ ENT: Hearing grossly normal, nares patent, oropharynx clear without exudates. No uvular deviation. Moist mucosa_ NECK: Normal ROM, supple, no lymphadenopathy, JVD, or masses_ LUNGS: No distress, speaks in full sentences, clear to auscultation bilaterally _ HEART: Irregular, tachycardic, normal S1 and S2, no murmurs appreciated, peripheral pulses normal and equal bilaterally._ ABDOMEN: Soft, nontender, normoactive bowel sounds. No guarding, no rebound. No masses_ EXTREMITIES: Normal range of motion, no edema. No clubbing or cyanosis. NEUROLOGICAL: Cranial nerves II through XII grossly intact. Normal speech, normal gait, no focal sensorimotor deficits _ SKIN: Warm, Dry, normal turgor, no rashes noted RECTAL: Normal external exam, good rectal tone, no obvious bleeding, minimal stool in rectal vault, no hemorrhoids or masses appreciated ED Treatment Course - LABORATORY CBC & Chemistry Diagram: 08/12/19 07:26 08/12/19 07:26 - ADDITIONAL ORDERS Additional order review: Laboratory Results 08/11/19 06:50 PT with INR 12.70 INR 1.08 PTT (Actin FS) 30.8 08/11/19 06:50 RBC 2.07 L MCV 100.6 H MCHC 32.3 RDW 15.2 MPV 8.8 Neutrophils % 72.5 Lymphocytes % 12.1 D Monocytes % 11.0 H Eosinophils % 3.9 Basophils % 0.5 - Medications Given in the ED: ED Medications Discontinued Medications Generic Name Dose Route Start Last Admin Trade Name Freq PRN Reason Stop Dose Admin Diltiazem HCl 10 mg 08/11/19 06:51 08/11/19 06:58 Cardizem Injection - IVPUSH 08/11/19 06:52 10 mg ONCE ONE Administration Medical Decision Making - Medical Decision Making 74M recently left AMA from admission 10 days ago returning for blood with bowel movement. -cbc, cmp -ekg, cxr -type and screen -coags -mg -trop EKG shows 123 bpm, a-fib with RVR, left axis deviation, no ST elevation QTc 512. CXR shows Mild bilateral increased interstitial markings. Cannot rule out superimposed infiltrates in the right lung base. Follow-up is needed. Labs reviewed. Laboratory Last Values WBC 8.2 K/mm3 (4.0-10.0) 08/11/19 06:50 RBC 2.07 M/mm3 (4.00-5.60) L 08/11/19 06:50 Hgb 6.8 GM/dL (11.7-16.9) L* 08/11/19 06:50 Hct 20.9 % (35.4-49) L 08/11/19 06:50 MCV 100.6 fl (80-96) H 08/11/19 06:50 MCH 32.5 pg (25.7-33.7) 08/11/19 06:50 MCHC 32.3 g/dl (32.0-35.9) 08/11/19 06:50 RDW 15.2 % (11.9-15.9) 08/11/19 06:50 Plt Count 149 K/MM3 (134-434) D 08/11/19 06:50 MPV 8.8 fl (7.5-11.1) 08/11/19 06:50 Absolute Neuts (auto) 5.9 K/mm3 (1.5-8.0) 08/11/19 06:50 Neutrophils % 72.5 % (42.8-82.8) 08/11/19 06:50 Lymphocytes % 12.1 % (8-40) D 08/11/19 06:50 Monocytes % 11.0 % (3.8-10.2) H 08/11/19 06:50 Eosinophils % 3.9 % (0-4.5) 08/11/19 06:50 Basophils % 0.5 % (0-2.0) 08/11/19 06:50 Nucleated RBC % 0 % (0-0) 08/11/19 06:50 PT with INR 12.70 SEC (9.7-13.0) 08/11/19 06:50 INR 1.08 (0.83-1.09) 08/11/19 06:50 PTT (Actin FS) 30.8 SECONDS (25.2-36.5) 08/11/19 06:50 Sodium 137 mmol/L (136-145) 08/11/19 06:50 Potassium 4.6 mmol/L (3.5-5.1) 08/11/19 06:50 Chloride 102 mmol/L (98-107) 08/11/19 06:50 Carbon Dioxide 25 mmol/L (21-32) 08/11/19 06:50 Anion Gap 10 MMOL/L (8-16) 08/11/19 06:50 BUN 34.7 mg/dL (7-18) H 08/11/19 06:50 Creatinine 9.5 mg/dL (0.55-1.3) H* 08/11/19 06:50 Est GFR (CKD-EPI)AfAm 5.63 08/11/19 06:50 Est GFR (CKD-EPI)NonAf 4.85 08/11/19 06:50 Random Glucose 96 mg/dL (74-106) 08/11/19 06:50 Calcium 7.6 mg/dL (8.5-10.1) L 08/11/19 06:50 Magnesium 2.1 mg/dL (1.8-2.4) 08/11/19 06:50 Total Bilirubin 0.6 mg/dL (0.2-1) 08/11/19 06:50 AST 27 U/L (15-37) 08/11/19 06:50 ALT 15 U/L (13-61) 08/11/19 06:50 Alkaline Phosphatase 62 U/L (45-117) 08/11/19 06:50 Creatine Kinase 239 U/L (26-308) 08/11/19 06:50 Creatine Kinase Index 1.3 % (0.0-5.0) 08/11/19 06:50 CK-MB (CK-2) 3.3 ng/mL (0.5-3.6) 08/11/19 06:50 Troponin I 0.05 ng/ml (0.00-0.05) 08/11/19 06:50 Total Protein 6.1 g/dl (6.4-8.2) L 08/11/19 06:50 Albumin 3.3 g/dl (3.4-5.0) L 08/11/19 06:50 Stool Occult Blood Positive (NEGATIVE) 08/11/19 07:37 Blood Type AB POSITIVE 08/11/19 06:50 Antibody Screen Negative 08/11/19 06:50 Crossmatch See Detail 08/11/19 06:50 08/11/19 08:22 D/w Dr. Long who accepts the patient for Dr. Morel. D/w Dr. Gerard Trejo who will see the patient for dialysis and order blood transfusion. 08/11/19 09:15 EKG #2 shows 112 bpm, a-fib with RVR, LAD, no ST elevation, QTc 442. Discharge - Discharge Information Problems reviewed: Yes Clinical Impression/Diagnosis: Bright red blood per rectum, Atrial fibrillation with RVR Condition: Stable - Admission Yes - Follow up/Referral - Patient Discharge Instructions - Post Discharge Activity
[2019-08-11 08:05] LABS: ALBUMIN 3.3 g/dl (3.4-5.0); BILIRUBIN,TOTAL 0.6 mg/dL (0.2-1); BLOOD UREA NITROGEN 34.7 mg/dL (7-18); CALCIUM 7.6 mg/dL (8.5-10.1); MAGNESIUM 2.1 mg/dL (1.8-2.4); POTASSIUM 4.6 mmol/L (3.5-5.1); TOT PROT 6.1 g/dl (6.4-8.2)
[2019-08-11 08:24] LABS: CREATININE 9.5 mg/dL (0.55-1.3)
--- NOTE | 2019-08-11 08:46 | PDOC ---
Attending Attestation - Resident Resident Name: Isaiah Esquivel - ED Attending Attestation I have performed the following: I have examined & evaluated the patient, The case was reviewed & discussed with the resident, I agree w/resident's findings & plan, Exceptions are as noted - HPI HPI: 08/11/19 08:42 74-year-old male history HTN ESRD ( m/w/f dialysis ) recent NSTEMI, CHF here today complaining of bright red blood per rectum. Patient was recently admitted for chest pain found to have decreased EF 25 - 30%, positive troponin, and found to have a GI bleed was discharged or left AMA a few days ago. At that time the patient was refusing any endoscopy or colonoscopy therefore the source of the bleeding was not encountered. He did receive 3 units of blood on his prior admission patient went home and since then now is having persistent bright red blood per rectum. Overall he is complaining of generalized fatigue denies any current chest pain or shortness of breath no headache denies bright red blood between stools and notes blood only 1 stools. His last dialysis was 3 days ago he is due for dialysis today. Does not complain of any current shortness of breath no fevers no chills no other current complaints no abdominal pain 08/11/19 08:47 - Physicial Exam PE: 08/11/19 08:43 Awake alert no acute distress lungs are clear bilaterally heart is regular there is no noted murmur no rubs no gallops abdomen is soft and nontender extremities are warm well perfused bilateral upper extremity fistulas no noted peripheral edema patient is awake alert and oriented x3 - Medical Decision Making 08/11/19 08:43 74-year-old male history of hypertension end-stage renal A. fib CAD here today complaining of a GI bleed. Plan rule out anemia patient was found to be in itially in A. fib with RVR was given diltiazem IV push his heart rate did improve from 150 to 100's . At this time any further antiarrhythmics are being held due to concerns for possible anemia. CBC CMP blood type and screen EKG and chest x-ray were obtained. Patient's hemoglobin was found to be 6 the lowest it has been on prior admissions. He will require transfusion Discussed with Dr. Neil Gee will arrange for the patient to be transfused with dialysis patient was admitted and endorsed to Dr. Tam until will be scheduled for dialysis today Heart Score/ECG Review #2 General ECG Interpretation: Sinus Rhythm, Normal Rate, Normal Intervals, No acute ischemic changes (TWI I, AVL. left axis. afib. rate 112.) Discharge - Discharge Information Problems reviewed: Yes Clinical Impression/Diagnosis: Bright red blood per rectum, Atrial fibrillation with RVR Condition: Stable - Follow up/Referral - Patient Discharge Instructions - Post Discharge Activity
--- NOTE | 2019-08-11 09:15 | EKG ---
Test Reason : Blood Pressure : / mmHG Vent. Rate : 123 BPM Atrial Rate : 032 BPM P-R Int : 000 ms QRS Dur : 106 ms QT Int : 358 ms P-R-T Axes : 000 -39 119 degrees QTc Int : 512 ms ATRIAL FIBRILLATION WITH RAPID VENTRICULAR RESPONSE LEFT AXIS DEVIATION /LAFB ABNORMAL ECG WHEN COMPARED WITH ECG OF 30-JUL-2019 06:20, NO SIGNIFICANT CHANGE WAS FOUND Confirmed by DORA MONZON MD ([id number]) on 08/11/2019 9:14:32 AM Referred By: Confirmed By:DORA MONZON MD
--- NOTE | 2019-08-11 11:13 | EKG ---
Test Reason : Blood Pressure : / mmHG Vent. Rate : 112 BPM Atrial Rate : 113 BPM P-R Int : 000 ms QRS Dur : 100 ms QT Int : 324 ms P-R-T Axes : 000 -44 128 degrees QTc Int : 442 ms ATRIAL FIBRILLATION WITH RAPID VENTRICULAR RESPONSE LEFT AXIS DEVIATION /LAFB ABNORMAL ECG WHEN COMPARED WITH ECG OF 11-AUG-2019 06:38, NO SIGNIFICANT CHANGE WAS FOUND Confirmed by DORA MONZON MD ([id number]) on 08/11/2019 11:13:36 AM Referred By: Confirmed By:DORA MONZON MD
--- NOTE | 2019-08-11 12:58 | HP ---
CHIEF COMPLAINT: BRBPR PCP: Dr Gee HISTORY OF PRESENT ILLNESS: 74 y/o M with a PMH of ESRD on HD (MWF), CVA (no residual deficits), HTN, and atrial fibrillation (on coumadin)who presents to the ED for BRBPR. Patient endorses R inguinal pain from chronic hernia he had for many years, but endorses hernia got larger now herniating through his R scrotum. Denies fever/chills/N/V/D. Renal service evaluated patient no indication for emergent HD, will need GI/Surgery/Cardiology services to evaluate patient. Hgb 6.8 will get transfusion w/ HD. Recent Travel: denies PAST MEDICAL HISTORY: as above PAST SURGICAL HISTORY: AvF Social History: denies current x3 Smoking: Alcohol: Drugs: Allergies ramipril Allergy (Severe, Verified 07/30/19 06:13) Swelling HOME MEDICATIONS: Home Medications Medication Instructions Recorded Diltiazem Cd [Cardizem Cd -] 240 mg PO DAILY 07/30/19 Warfarin Na [Coumadin] 7 mg PO ASDIR 07/30/19 Warfarin Sodium 5 mg PO ASDIR 07/30/19 PHYSICAL EXAMINATION Vital Signs - 24 hr 08/11/19 08/11/19 08/11/19 06:18 07:10 10:54 Temperature 97.4 F L 98 F Pulse Rate 120 H Pulse Rate [ 102 H 86 Left Radial] Respiratory 18 15 16 Rate Blood Pressure 118/72 Blood Pressure 96/72 123/98 [Left Calf] O2 Sat by Pulse 98 99 97 Oximetry (%) GA AAox3, elderly, vitiligo around lips HEENT NC/AT, mild JVD, neck supple, Dry MM Chest Good air entry b/l, no crackles or wheezing CVS Irregularly irregular, normal rate Abd Soft, mildly distended, lower abdominal pain w/o guarding, BS decreased Ext 1+ pitting edema b/l, R AVf w/ good thrill Rectal BRBPR+ Laboratory Results - last 24 hr 08/11/19 08/11/19 08/11/19 06:50 06:50 06:50 WBC 8.2 RBC 2.07 L Hgb 6.8 L* Hct 20.9 L MCV 100.6 H MCH 32.5 MCHC 32.3 RDW 15.2 Plt Count 149 D MPV 8.8 Absolute Neuts (auto) 5.9 Neutrophils % 72.5 Lymphocytes % 12.1 D Monocytes % 11.0 H Eosinophils % 3.9 Basophils % 0.5 Nucleated RBC % 0 PT with INR 12.70 INR 1.08 PTT (Actin FS) 30.8 Sodium 137 Potassium 4.6 Chloride 102 Carbon Dioxide 25 Anion Gap 10 BUN 34.7 H Creatinine 9.5 H* Est GFR (CKD-EPI)AfAm 5.63 Est GFR (CKD-EPI)NonAf 4.85 Random Glucose 96 Calcium 7.6 L Magnesium 2.1 Total Bilirubin 0.6 AST 27 ALT 15 Alkaline Phosphatase 62 Creatine Kinase 239 Creatine Kinase Index 1.3 CK-MB (CK-2) 3.3 Troponin I 0.05 Total Protein 6.1 L Albumin 3.3 L Stool Occult Blood Blood Type Antibody Screen Crossmatch 08/11/19 08/11/19 06:50 07:37 WBC RBC Hgb Hct MCV MCH MCHC RDW Plt Count MPV Absolute Neuts (auto) Neutrophils % Lymphocytes % Monocytes % Eosinophils % Basophils % Nucleated RBC % PT with INR INR PTT (Actin FS) Sodium Potassium Chloride Carbon Dioxide Anion Gap BUN Creatinine Est GFR (CKD-EPI)AfAm Est GFR (CKD-EPI)NonAf Random Glucose Calcium Magnesium Total Bilirubin AST ALT Alkaline Phosphatase Creatine Kinase Creatine Kinase Index CK-MB (CK-2) Troponin I Total Protein Albumin Stool Occult Blood Positive Blood Type AB POSITIVE Antibody Screen Negative Crossmatch See Detail Home Medications Medication Instructions Recorded Diltiazem Cd [Cardizem Cd -] 240 mg PO DAILY 07/30/19 Warfarin Na [Coumadin] 7 mg PO ASDIR 07/30/19 Warfarin Sodium 5 mg PO ASDIR 07/30/19 Current Medications Generic Name Dose Route Start Last Admin Trade Name Freq PRN Reason Stop Dose Admin Epoetin Stevie 20,000 unit 08/11/19 08:19 Procrit - IVPUSH 08/11/19 08:20 ONCE ONE Sodium Chloride 250 mls @ 3,000 mls/hr 08/11/19 08:19 Normal Saline - IV 08/12/19 08:19 PRN PRN Hypotension during Dialysis Pantoprazole Sodium 40 mg 08/11/19 13:00 08/11/19 13:51 Protonix Iv IVPUSH Not Given BID STEVE ASSESSMENT/PLAN: 74 M BRBPR, suspected LGIB, ?UGIB WELL ?incarcerated inguinal hernia HTN HLD ESRD on HD CHF GERD Anemia Afib on AC Plan: Hold Coumadin, consult GI/Surgery for LGIB Transfuse w/ goal >7.0 (avoid overload) Renal following PPI BID Surgery notified of suspected incarcerated bowel, obtain CT A/P DVT ppx: SCD for now Visit type - Emergency Visit Emergency Visit: Yes ED Registration Date: 08/11/19 Care time: The patient presented to the Emergency Department on the above date and was hospitalized for further evaluation of their emergent condition. - New Patient This patient is new to me today: Yes Date on this admission: 08/11/19 - Critical Care Critical Care patient: No
--- NOTE | 2019-08-11 12:58 | CON.NEP ---
Consult Consult Specialty:: Nephrology Referred by:: ED Reason for Consultation:: ESRD on HD - History of Present Illness Chief Complaint: Rectal bleeding History of Present Illness: This is a 74 year old male with history of ESRD on HD, CVA, hypertension, CHF who presents from home with complaints of rectal bleeding and groin pain. He was recently admitted for anemia. He last had dialysis on Sunday. No chest pain, fever, chills, N/V/D. Has inguinal hernia that is now causing him pain. Has some nausea but no emesis. 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, 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 History of Recent Travel: No Home Medications - Allergies Allergies/Adverse Reactions: Allergies Allergy/AdvReac Type Severity Reaction Status Date / Time ramipril Allergy Severe Swelling Verified 07/30/19 06:13 - Home Medications Home Medications: Ambulatory Orders Diltiazem Cd [Cardizem Cd -] 240 mg PO DAILY 07/30/19 Warfarin Na [Coumadin] 7 mg PO ASDIR 07/30/19 Warfarin Sodium 5 mg PO ASDIR 07/30/19 Family Medical History Family History: Unremarkable Review of Systems - Review of Systems Constitutional: reports: Weakness Eyes: reports: No Symptoms HENT: reports: No Symptoms Neck: reports: No Symptoms Cardiovascular: reports: No Symptoms Respiratory: reports: No Symptoms Gastrointestinal: reports: Abdominal Pain, Nausea. denies: Vomiting Genitourinary: reports: No Symptoms Musculoskeletal: reports: No Symptoms Neurological: reports: No Symptoms Nephrology Consult - Height Height: 5 ft 5 in - Weight Weight: 73.3 kg - BMI Body Mass Index (BMI): 26.9 - Lab Results CBC,BMP: CBC, BMP 08/11/19 06:50 08/11/19 06:50 Anion Gap: Anion Gap Anion Gap 10 MMOL/L (8-16) 08/11/19 06:50 - Physical Examination Vital Signs: Vital Signs Temperature 98 F 08/11/19 10:54 Pulse Rate 86 08/11/19 10:54 Respiratory Rate 16 08/11/19 10:54 Blood Pressure 123/98 08/11/19 10:54 O2 Sat by Pulse Oximetry (%) 97 08/11/19 10:54 Assessment/Plan 74 year old male with history of ESRD on HD, CVA, hypertension, CHF, atrial fibrillation on coumadin who presents from home with complaints of rectal bleeding and groin pain. 1. ESRD on HD 2. Acute on chronic anemia 3. Inguinal hernia 4. R.o GI bleed 5. CHF with recent echo with low EF 6. Afib on coumadin For dialysis today with PRBC transfusion x 2 GI consult for suspected GI bleed Cardiology consult regarding low EF and coumadin use in setting of GI bleed Surgical consult for inguinal hernia NPO for now Thank you Gerard Trejo DO
[2019-08-11] MEDS: PANTOPRAZOLE SODIUM 40 MG VIAL IVPUSH SCH ×2 (13:51→22:18)
--- NOTE | 2019-08-11 14:55 | PN ---
Progress Note (short form) - Note Progress Note: 74 y/o M with a PMH of ESRD on HD (MWF), CVA (no residual deficits), HTN, and atrial fibrillation (on coumadin)who presents to the ED for BRBPR. Patient endorses R inguinal pain from chronic hernia he had for many years, but endorses hernia got larger now herniating through his R scrotum. Denies fever/chills/N/V/D. Renal service evaluated patient no indication for emergent HD, will need GI/Surgery/Cardiology services to evaluate patient. Hgb 6.8 will get transfusion w/ HD. Recent Travel: denies PAST MEDICAL HISTORY: as above PAST SURGICAL HISTORY: AvF Social History: denies current x3 Smoking: Alcohol: Drugs: Allergies ramipril Allergy (Severe, Verified 07/30/19 06:13) Swelling HOME MEDICATIONS: Home Medications Medication Instructions Recorded Diltiazem Cd [Cardizem Cd -] 240 mg PO DAILY 07/30/19 Warfarin Na [Coumadin] 7 mg PO ASDIR 07/30/19 Warfarin Sodium 5 mg PO ASDIR 07/30/19 PHYSICAL EXAMINATION Vital Signs - 24 hr 08/11/19 08/11/19 08/11/19 06:18 07:10 10:54 Temperature 97.4 F L 98 F Pulse Rate 120 H Pulse Rate [ 102 H 86 Left Radial] Respiratory 18 15 16 Rate Blood Pressure 118/72 Blood Pressure 96/72 123/98 [Left Calf] O2 Sat by Pulse 98 99 97 Oximetry (%) GA AAox3, elderly, vitiligo around lips HEENT NC/AT, mild JVD, neck supple, Dry MM Chest Good air entry b/l, no crackles or wheezing CVS Irregularly irregular, normal rate Abd Soft, mildly distended, lower abdominal pain w/o guarding, BS decreased Ext 1+ pitting edema b/l, R AVf w/ good thrill Rectal BRBPR+ Laboratory Results - last 24 hr 08/11/19 08/11/19 08/11/19 06:50 06:50 06:50 WBC 8.2 RBC 2.07 L Hgb 6.8 L* Hct 20.9 L MCV 100.6 H MCH 32.5 MCHC 32.3 RDW 15.2 Plt Count 149 D MPV 8.8 Absolute Neuts (auto) 5.9 Neutrophils % 72.5 Lymphocytes % 12.1 D Monocytes % 11.0 H Eosinophils % 3.9 Basophils % 0.5 Nucleated RBC % 0 PT with INR 12.70 INR 1.08 PTT (Actin FS) 30.8 Sodium 137 Potassium 4.6 Chloride 102 Carbon Dioxide 25 Anion Gap 10 BUN 34.7 H Creatinine 9.5 H* Est GFR (CKD-EPI)AfAm 5.63 Est GFR (CKD-EPI)NonAf 4.85 Random Glucose 96 Calcium 7.6 L Magnesium 2.1 Total Bilirubin 0.6 AST 27 ALT 15 Alkaline Phosphatase 62 Creatine Kinase 239 Creatine Kinase Index 1.3 CK-MB (CK-2) 3.3 Troponin I 0.05 Total Protein 6.1 L Albumin 3.3 L Stool Occult Blood Blood Type Antibody Screen Crossmatch 08/11/19 08/11/19 06:50 07:37 WBC RBC Hgb Hct MCV MCH MCHC RDW Plt Count MPV Absolute Neuts (auto) Neutrophils % Lymphocytes % Monocytes % Eosinophils % Basophils % Nucleated RBC % PT with INR INR PTT (Actin FS) Sodium Potassium Chloride Carbon Dioxide Anion Gap BUN Creatinine Est GFR (CKD-EPI)AfAm Est GFR (CKD-EPI)NonAf Random Glucose Calcium Magnesium Total Bilirubin AST ALT Alkaline Phosphatase Creatine Kinase Creatine Kinase Index CK-MB (CK-2) Troponin I Total Protein Albumin Stool Occult Blood Positive Blood Type AB POSITIVE Antibody Screen Negative Crossmatch See Detail Home Medications Medication Instructions Recorded Diltiazem Cd [Cardizem Cd -] 240 mg PO DAILY 07/30/19 Warfarin Na [Coumadin] 7 mg PO ASDIR 07/30/19 Warfarin Sodium 5 mg PO ASDIR 07/30/19 Current Medications Generic Name Dose Route Start Last Admin Trade Name Freq PRN Reason Stop Dose Admin Epoetin Stevie 20,000 unit 08/11/19 08:19 Procrit - IVPUSH 08/11/19 08:20 ONCE ONE Sodium Chloride 250 mls @ 3,000 mls/hr 08/11/19 08:19 Normal Saline - IV 08/12/19 08:19 PRN PRN Hypotension during Dialysis Pantoprazole Sodium 40 mg 08/11/19 13:00 08/11/19 13:51 Protonix Iv IVPUSH Not Given BID STEVE ASSESSMENT/PLAN: 74 M BRBPR, suspected LGIB, ?UGIB WELL ?incarcerated inguinal hernia HTN HLD ESRD on HD CHF GERD Anemia Afib on AC Plan: Hold Coumadin, consult GI/Surgery for LGIB Transfuse w/ goal >7.0 (avoid overload) Renal following PPI BID Surgery notified of suspected incarcerated bowel, obtain CT A/P DVT ppx: SCD for now
--- NOTE | 2019-08-11 16:26 | CON.GI ---
Consult Consult Specialty:: GI Referred by:: Hospitalist Service Reason for Consultation:: Rectal bleeding - History of Present Illness Chief Complaint: Rectal bleeding History of Present Illness: Please refer to my note from 07/31/19 74M admitted for evaluation of rectal bleeding. Patient states intermittent rectal bleeding with straining over the last 4 days. last bleeding was this morning. No abdominal pain. Evaluated 2 weeks ago for anemia and history of rectal bleeding with straining. Refused endoscopic evaluation. INR was supratherapeutic at that time, hhe made troponins, was seen by degreasing solution mixer Dr. Brantley who felt that if he was agreeable to procedures, they should be undertaken at a tertiary care facility. 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 Place of : [facility] History of Recent Travel: No Home Medications - Allergies Allergies/Adverse Reactions: Allergies Allergy/AdvReac Type Severity Reaction Status Date / Time ramipril Allergy Severe Swelling Verified 07/30/19 06:13 - Home Medications Home Medications: Ambulatory Orders Diltiazem Cd [Cardizem Cd -] 240 mg PO DAILY 07/30/19 Warfarin Na [Coumadin] 7 mg PO ASDIR 07/30/19 Warfarin Sodium 5 mg PO ASDIR 07/30/19 Family Medical History Other Family History: No family history of colorectal cancer Review of Systems - Review of Systems Constitutional: denies: Chills Cardiovascular: denies: Chest Pain Respiratory: reports: SOB Gastrointestinal: reports: Constipation, Rectal Bleeding. denies: Abdominal Pain Physical Exam-GI Vital Signs: Vital Signs Temperature 97.5 F L 08/11/19 14:00 Pulse Rate 111 H 08/11/19 14:00 Respiratory Rate 18 08/11/19 14:00 Blood Pressure 126/95 08/11/19 14:00 O2 Sat by Pulse Oximetry (%) 97 08/11/19 10:54 Constitutional: Yes: Calm Eyes: No: Sclera Icterus Cardiovascular: Yes: Tachycardia, Pulse Irregular, Murmur (2/6 diastolic murmur) Respiratory: Yes: CTA Bilaterally Gastrointestinal Inspection: Yes: Hernia (tender, reducible right indirect inguinal hernia). No: Distention ...Auscultate: Yes: Normoactive Bowel Sounds ...Palpate: No: Tenderness ...Rectal Exam: Yes: Other (No external lesions, no masses, no blood) Neurological: Yes: Alert Labs: CBC, BMP 08/11/19 06:50 08/11/19 06:50 INR, PTT INR 1.08 (0.83-1.09) 08/11/19 06:50 Problem List - Problems (1) Bright red blood per rectum Assessment/Plan: Discussed upper endoscopy and colonoscopy with Mr. Blackwood, as I did 07/31/19, to exclude alternate GI sources of rectal bleeding aside from internal hemorrhoid as well as his anemia (likely multifactorial) such as bleeding blood vessels, PUD, polyps, cancers. Explained that bleeding can be life threatening. We discussed potential risks of the procedures like but not limited to bleeding, perforation requiring surgery to repair, infection, sedation medication effects all of which could be potentially life threatening. He once again emphatically stated no, he does not want those procedures, "He has been through enough" He also stated that he did not even want to think about this further. Protonix 20mg once daily MiraLAX 17g once daily Transfuse, keep Hgb >8 Hematology evaluation If patient is amenable to endoscopic evaluation, as per cardiology recommendations at last visit, transfer should be considered to a tertiary care center Code(s): K62.5 - HEMORRHAGE OF ANUS AND RECTUM (2) Inguinal hernia Assessment/Plan: Reducible, right tender indirect inguinal hernia. Unclear if small / large bowel (would make colonoscopy more difficult) or both in hernia Surgical evaluation Problems reviewed: Yes Code(s): K40.90 - UNIL INGUINAL HERNIA, W/O OBST OR GANGR, NOT SPCF RECUR Qualifiers: Obstruction and gangrene presence: without obstruction or gangrene Late rality: unilateral
--- NOTE | 2019-08-11 17:56 | CONSULT ---
Consult Consult Specialty:: Palliative Care Referred by:: Stanton Morel Reason for Consultation:: Goals of care - History of Present Illness Chief Complaint: GI bleed History of Present Illness: 74 y/o M with a PMH of ESRD on HD (MWF), CVA (no residual deficits), HTN, and atrial fibrillation (on coumadin), anemia, recent NSTEMI, CHF, hx of GI bleed,Inguinal hernia who presented to the ED for BRBPR. Patient endorses R inguinal pain from chronic hernia he had for many years, but endorses hernia got larger now herniating through his R scrotum. Denies fever/chills/N/V/D. Renal/ GI/Surgery/Cardiology services to evaluate patient. Hgb 6.8 - to get transfusion w/ HD. Patient was recently admitted with GI bleed and NSTEMI and left AMA, refusing EGD/ colonoscopy 10 days ago. He received 3 U pRBC at that time. He is now readm itted with BRBPR, Hb of 6.8 and still refusing EGD/ colonoscopy adamantly. Palliative care consult called for goals of care. - History Source History Provided By: Medical Record Limitations to Obtaining History: Clinical Condition - Past Medical History QA ANALYST: Yes: CVA Cardio/Vascular: Yes: AFIB, CAD, CHF, HTN, Hyperlipdemia Gastrointestinal: Yes: GI Bleed Renal/: Yes: Renal Failure, Hemodialysis - Past Surgical History Past Surgical History: Yes: AV Fistula/Graft (to R wrist, and old graft to L arm) - Alcohol/Substance Use Hx Alcohol Use: No - Smoking History Smoking history: Unknown if ever smoked Have you smoked in the past 12 months: No If you are a former smoker, when did you quit?: 50YRS AGO - Social History Usual Living Arrangement: With Spouse ADL: Independent 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, 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 History of Recent Travel: No Home Medications - Allergies Allergies/Adverse Reactions: Allergies Allergy/AdvReac Type Severity Reaction Status Date / Time ramipril Allergy Severe Swelling Verified 07/30/19 06:13 - Home Medications Home Medications: Ambulatory Orders Diltiazem Cd [Cardizem Cd -] 240 mg PO DAILY 07/30/19 Warfarin Na [Coumadin] 7 mg PO ASDIR 07/30/19 Warfarin Sodium 5 mg PO ASDIR 07/30/19 Review of Systems Unable to obtain ROS, reason: patient on HD, tired - Review of Systems Constitutional: reports: Lethargy, Weakness Physical Exam Vital Signs: Vital Signs Temperature 97.5 F L 08/11/19 14:00 Pulse Rate 111 H 08/11/19 14:00 Respiratory Rate 18 08/11/19 14:00 Blood Pressure 126/95 08/11/19 14:00 O2 Sat by Pulse Oximetry (%) 97 08/11/19 10:54 Constitutional: Yes: Well Nourished, No Distress Eyes: Yes: Conjunctiva Clear, EOM Intact HENT: Yes: Atraumatic, Normocephalic Neck: Yes: Supple Cardiovascular: Yes: Tachycardia Respiratory: Yes: Regular Neurological: Yes: Alert, Oriented Labs: CBC, BMP 08/11/19 06:50 08/11/19 06:50 Imaging - Results Chest X-ray: Report Reviewed Problem List - Problems (1) Atrial fibrillation with RVR Code(s): I48.91 - UNSPECIFIED ATRIAL FIBRILLATION (2) Bright red blood per rectum Code(s): K62.5 - HEMORRHAGE OF ANUS AND RECTUM (3) Atrial fibrillation Code(s): I48.91 - UNSPECIFIED ATRIAL FIBRILLATION (4) ESRD (end stage renal disease) on dialysis Code(s): N18.6 - END STAGE RENAL DISEASE; Z99.2 - DEPENDENCE ON RENAL DIALYSIS (5) Rectal bleeding Code(s): K62.5 - HEMORRHAGE OF ANUS AND RECTUM Assessment/Plan 74 y/o M with ESRD on HD (MWF), CVA (no residual deficits), HTN, atrial fibrillation (on coumadin),currently on hold due to GI bleed anemia recent NSTEMI CHF GI bleed Inguinal hernia - suspected incarcerated- CT A/P pending Hgb 6.8 - transfusion w/ HD. Patient was recently admitted with GI bleed and NSTEMI and left AMA, refusing EGD/ colonoscopy 10 days ago. He received 3 U pRBC at that time. He is now readmitted with BRBPR, Hb of 6.8 and still refusing EGD/ colonoscopy adamantly. Palliative care consult called for goals of care. Prognosis guarded. EGD/ colonoscopy would be important to determine etiology of life threatening GI bleed requiring multiple transfusions. Failure to do so would limit ability to anticoagulate him for A fib thus placing him at risk of recurrent strokes. He has probable underlying CAD and cannot be treated for that as treatment would entail antiplatelet agents which he cant receive due to ongoing GI bleed. It will also be important to r/o any underlying malignancy. I will continue discussion with the patient and his . He was not able to engage in a discussion today as he was on HD and feeling tired and lethargic. Will follow. [facility] for allowing me to participate in the care of this patient. Please call with questions. Chip Araiza MD [phone] Total time for chart review, examination and coordination of care- 50 minutes.
[2019-08-11] MEDS ORDERED: SODIUM CHLORIDE 250 ML IV PRN (18:50)
[2019-08-11] MEDS ORDERED: EPOETIN ALFA 20,000 UNIT/1 ML VIAL IVPUSH ONE (19:00)
[2019-08-12 08:23] LABS: BASO % 0.6 % (0-2.0); HEMATOCRIT 27.6 % (35.4-49); HEMOGLOBIN 9.3 GM/dL (11.7-16.9); LYMPH % 12.3 % (8-40); MCH 32.7 pg (25.7-33.7); MCHC 33.6 g/dl (32.0-35.9); MEAN CELL VOLUME 97.3 fl (80-96); MEAN PLT VOLUME 8.8 fl (7.5-11.1); MONO % 13.6 % (3.8-10.2); NEUT % 71.5 % (42.8-82.8); PLATELET COUNT 141 K/MM3 (134-434); RBC 2.83 M/mm3 (4.00-5.60); RDW 16.6 % (11.9-15.9)
[2019-08-12 08:47] LABS: ALBUMIN 3.2 g/dl (3.4-5.0); BILIRUBIN,TOTAL 1.2 mg/dL (0.2-1); BLOOD UREA NITROGEN 20.1 mg/dL (7-18); CALCIUM 7.7 mg/dL (8.5-10.1); CREATININE 6.6 mg/dL (0.55-1.3); POTASSIUM 4.3 mmol/L (3.5-5.1); TOT PROT 6.1 g/dl (6.4-8.2)
[2019-08-12] MEDS: PANTOPRAZOLE SODIUM 40 MG VIAL IVPUSH SCH (09:27)
--- NOTE | 2019-08-12 12:14 | PN ---
Physical Exam: SUBJECTIVE: Patient seen and examined at bedside. No acute events. Pt feels well. Is slightly uncooperative with interview. OBJECTIVE: Vital Signs Period Temp Pulse Resp BP Sys/Mckinley Pulse Ox Last 24 Hr 97.5 F-98.3 F 98-126 18-20 100-143/62-96 96-96 Gen: AAOx3, NAD HEENT: NCAT, Eomi, vitiligo of lips Neck: R mild jvd Cardio: irregular, s1s2, no mrg noted Pulm: cta b/l Abd: soft, nontender, nondistended Ext: no edema, b/l UE fistula, R with pulsation and bruit Laboratory Results - last 24 hr 08/11/19 08/11/19 08/12/19 06:50 06:50 07:26 WBC 9.0 RBC 2.83 L Hgb 9.3 L Hct 27.6 L D MCV 97.3 H MCH 32.7 MCHC 33.6 RDW 16.6 H Plt Count 141 MPV 8.8 Absolute Neuts (auto) 6.4 Neutrophils % 71.5 Lymphocytes % 12.3 Monocytes % 13.6 H Eosinophils % 2.0 Basophils % 0.6 Nucleated RBC % 0 Sodium 137 Potassium 4.6 Chloride 102 Carbon Dioxide 25 Anion Gap 10 BUN 34.7 H Creatinine 9.5 H* Est GFR (CKD-EPI)AfAm 5.63 Est GFR (CKD-EPI)NonAf 4.85 Random Glucose 96 Calcium 7.6 L Magnesium 2.1 Total Bilirubin 0.6 AST 27 ALT 15 Alkaline Phosphatase 62 Creatine Kinase 239 Creatine Kinase Index 1.3 CK-MB (CK-2) 3.3 Troponin I 0.05 Total Protein 6.1 L Albumin 3.3 L Blood Type AB POSITIVE Antibody Screen Negative Crossmatch See Detail 08/12/19 07:26 WBC RBC Hgb Hct MCV MCH MCHC RDW Plt Count MPV Absolute Neuts (auto) Neutrophils % Lymphocytes % Monocytes % Eosinophils % Basophils % Nucleated RBC % Sodium 138 Potassium 4.3 Chloride 100 Carbon Dioxide 30 Anion Gap 8 BUN 20.1 H Creatinine 6.6 H Est GFR (CKD-EPI)AfAm 8.74 Est GFR (CKD-EPI)NonAf 7.54 Random Glucose 82 Calcium 7.7 L Magnesium Total Bilirubin 1.2 H AST 31 ALT 14 Alkaline Phosphatase 63 Creatine Kinase Creatine Kinase Index CK-MB (CK-2) Troponin I Total Protein 6.1 L Albumin 3.2 L Blood Type Antibody Screen Crossmatch Active Medications Generic Name Dose Route Start Last Admin Trade Name Ezekiel PRN Reason Stop Dose Admin Diltiazem HCl 240 mg 08/12/19 10:00 08/12/19 09:27 Cardizem Cd - PO 240 mg DAILY STEVE Administration Sodium Chloride 250 mls @ 3,000 mls/hr 08/11/19 18:50 Normal Saline - IV 08/12/19 18:49 PRN PRN Hypotension during Dialysis Pantoprazole Sodium 40 mg 08/11/19 13:00 08/12/19 09:27 Protonix Iv IVPUSH 40 mg BID STEVE Administration ASSESSMENT/PLAN: 73 y/o male with PMH significant ESRD on HD (M/W/F), CVA (no residual deficits), HTN, a-fib (on coumadin), recently admitted for r/o ACS and GI bleed (s/p transfusion) and left AMA 10 days ago, presenting today at 's request and with concerns for blood with bowel movement. He is admitted with GIB. GIB -unclear etiology. Pt has been extremely reluctant to pursue diagnostic workup. Has been seen by GI on multiple occasions and had an AMA on prior visit -reportedly had sri blood in BM -NPO -PPI -hold A/C -GI on board: pt again refused services -Surg on board for lower GIB and for large incarcerated inguinal hernia. F/u recs AF -hold coumadin -c/w diltiazem ESRD -HD per Nephro -monitor lytes -on erythropoietin DVT ppx -held in setting of bleed Visit type - Emergency Visit Emergency Visit: No - New Patient This patient is new to me today: No - Critical Care Critical Care patient: No ATTENDING PHYSICIAN STATEMENT I saw and evaluated the patient. I reviewed the resident's note and discussed the case with the resident. I agree with the resident's findings and plan as documented. SUBJECTIVE: OBJECTIVE: ASSESSMENT AND PLAN:
[2019-08-12 12:26] VITALS: BMI 26.8
--- NOTE | 2019-08-12 14:58 | CON.CARD ---
Cardiology Consult (text) - Consultation Consultation Note: Consultation Note: Consult Specialty:: Cardiology Referred by:: Medicine Reason for Consultation: preop eval - History of Present Illness Chief Complaint: GI bleeding History of Present Illness: 74M h/o HTN, ESRD on HD (MW, last Sun), CVA, afib on coumadin p/w GI bleed. No chest pain, palps, dizziness, dyspnea. recently admitted for anemia, type II NSTEMI. Refused GI workup at that point. 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 History of Recent Travel: No Home Medications - Allergies Allergies/Adverse Reactions: Allergies Allergy/AdvReac Type Severity Reaction Status Date / Time ramipril Allergy Severe Swelling Verified 07/30/19 06:13 Current Medications Generic Name Dose Route Start Last Admin Trade Name Freq PRN Reason Stop Dose Admin Diltiazem HCl 240 mg 08/12/19 10:00 08/12/19 09:27 Cardizem Cd - PO 240 mg DAILY STEVE Administration Sodium Chloride 250 mls @ 3,000 mls/hr 08/11/19 18:50 Normal Saline - IV 08/12/19 18:49 PRN PRN Hypotension during Dialysis Pantoprazole Sodium 40 mg 08/11/19 13:00 08/12/19 09:27 Protonix Iv IVPUSH 40 mg BID STEVE Administration Family Disease History - Family Disease History Family History: Unremarkable Review of Systems - Review of Systems Constitutional: reports: No Symptoms Eyes: reports: No Symptoms HENT: reports: No Symptoms Neck: reports: No Symptoms Cardiovascular: reports: No Symptoms Respiratory: reports: No Symptoms Gastrointestinal: reports: No Symptoms Genitourinary: reports: No Symptoms Musculoskeletal: reports: No Symptoms Integumentary: reports: No Symptoms Neurological: reports: No Symptoms Endocrine: reports: No Symptoms Hematology/Lymphatic: reports: No Symptoms Psychiatric: reports: No Symptoms Vital Signs Period Temp Pulse Resp BP Sys/Mckinley Pulse Ox Last 24 Hr 97.5 F-98.3 F 106-126 18-20 100-143/62-96 96-96 Constitutional: Yes: No Distress, Calm Eyes: Yes: Conjunctiva Clear, EOM Intact HENT: Yes: Atraumatic, Normocephalic Neck: Yes: Supple, Trachea Midline Respiratory: Yes: Regular, CTA Bilaterally Gastrointestinal: Yes: Normal Bowel Sounds, Soft Cardiovascular: Yes: Regular Rate and Rhythm JVD: No Carotid Bruit: No PMI: Non-Displaced Heart Sounds: Yes: S1, S2 Murmur: No: Systolic Murmur Musculoskeletal: No: Back Pain Edema: No Integumentary: No: Jaundice Neurological: Yes: Alert, Oriented Psychiatric: No: Agitated Laboratory Last Values WBC 9.0 K/mm3 (4.0-10.0) 08/12/19 07:26 RBC 2.83 M/mm3 (4.00-5.60) L 08/12/19 07:26 Hgb 9.3 GM/dL (11.7-16.9) L 08/12/19 07:26 Hct 27.6 % (35.4-49) L D 08/12/19 07:26 MCV 97.3 fl (80-96) H 08/12/19 07:26 MCH 32.7 pg (25.7-33.7) 08/12/19 07:26 MCHC 33.6 g/dl (32.0-35.9) 08/12/19 07:26 RDW 16.6 % (11.9-15.9) H 08/12/19 07:26 Plt Count 141 K/MM3 (134-434) 08/12/19 07:26 MPV 8.8 fl (7.5-11.1) 08/12/19 07:26 Absolute Neuts (auto) 6.4 K/mm3 (1.5-8.0) 08/12/19 07:26 Neutrophils % 71.5 % (42.8-82.8) 08/12/19 07:26 Lymphocytes % 12.3 % (8-40) 08/12/19 07:26 Monocytes % 13.6 % (3.8-10.2) H 08/12/19 07:26 Eosinophils % 2.0 % (0-4.5) 08/12/19 07:26 Basophils % 0.6 % (0-2.0) 08/12/19 07:26 Nucleated RBC % 0 % (0-0) 08/12/19 07:26 PT with INR 12.70 SEC (9.7-13.0) 08/11/19 06:50 INR 1.08 (0.83-1.09) 08/11/19 06:50 PTT (Actin FS) 30.8 SECONDS (25.2-36.5) 08/11/19 06:50 Sodium 138 mmol/L (136-145) 08/12/19 07:26 Potassium 4.3 mmol/L (3.5-5.1) 08/12/19 07:26 Chloride 100 mmol/L (98-107) 08/12/19 07:26 Carbon Dioxide 30 mmol/L (21-32) 08/12/19 07:26 Anion Gap 8 MMOL/L (8-16) 08/12/19 07:26 BUN 20.1 mg/dL (7-18) H 08/12/19 07:26 Creatinine 6.6 mg/dL (0.55-1.3) H 08/12/19 07:26 Est GFR (CKD-EPI)AfAm 8.74 08/12/19 07:26 Est GFR (CKD-EPI)NonAf 7.54 08/12/19 07:26 Random Glucose 82 mg/dL (74-106) 08/12/19 07:26 Calcium 7.7 mg/dL (8.5-10.1) L 08/12/19 07:26 Magnesium 2.1 mg/dL (1.8-2.4) 08/11/19 06:50 Total Bilirubin 1.2 mg/dL (0.2-1) H 08/12/19 07:26 AST 31 U/L (15-37) 08/12/19 07:26 ALT 14 U/L (13-61) 08/12/19 07:26 Alkaline Phosphatase 63 U/L (45-117) 08/12/19 07:26 Creatine Kinase 239 U/L (26-308) 08/11/19 06:50 Creatine Kinase Index 1.3 % (0.0-5.0) 08/11/19 06:50 CK-MB (CK-2) 3.3 ng/mL (0.5-3.6) 08/11/19 06:50 Troponin I 0.05 ng/ml (0.00-0.05) 08/11/19 06:50 Total Protein 6.1 g/dl (6.4-8.2) L 08/12/19 07:26 Albumin 3.2 g/dl (3.4-5.0) L 08/12/19 07:26 Stool Occult Blood Positive (NEGATIVE) 08/11/19 07:37 Blood Type AB POSITIVE 08/11/19 06:50 Antibody Screen Negative 08/11/19 06:50 Crossmatch See Detail 08/11/19 06:50 Assessment/Plan echo 07/2019 mod conc LVH, increased echogenicity suggesting cardiac amyllodisis, paradoxical septal motion, severely reduced LV function, EF 25-30%, restrictive physiology, RV mod dilated, RV functino mild t mod reduced. LA mildly dilated, RA mild to mod dilated, mod MR, tr to mild AR, severe pulm HTN, RVSP elevated at 69 mmHG. 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
--- NOTE | 2019-08-12 15:06 | PN ---
Progress Note (short form) - Note Progress Note: 74 y/o M with ESRD on HD (MWF), CVA (no residual deficits), HTN, atrial fibrillation (on coumadin),currently on hold due to GI bleed anemia recent NSTEMI CHF GI bleed Inguinal hernia - suspected incarcerated- CT A/P pending Hgb 6.8 - transfusion w/ HD- improved to 9.3 Pt is feeling better VSS NAD AAO x 3 Patient was recently admitted with GI bleed and NSTEMI and left AMA, refusing EGD/ colonoscopy 10 days ago. He received 3 U pRBC at that time. He is now megan dmitted with BRBPR, Hb of 6.8 and still refusing EGD/ colonoscopy adamantly. Palliative care consult called for goals of care. Prognosis guarded. EGD/ colonoscopy would be important to determine etiology of life threatening GI bleed requiring multiple transfusions. Failure to do so would limit ability to anticoagulate him for A fib thus placing him at risk of recurrent strokes. He has probable underlying CAD and cannot be treated for that as treatment would entail antiplatelet agents which he cant receive due to ongoing GI bleed. It will also be important to r/o any underlying malignancy. I spoke today with pt's Selene and discussed above. She understood the importance of above tests and has spoken to him. I also had a detailed conversation with Daniel today as to how his refusal for the GI procedures is limiting what can be done for him and increasing his risk for other events like stroke and PA etc. He understood and has agreed to have the GI procedures done. He understands that he might need to be transferred to a tertiary care facility and is in agreement. He reaffirmed that he wants to be a full code and wants everything done. Will sign off for now. Please reconsult prn Problem List - Problems (1) Atrial fibrillation with RVR Code(s): I48.91 - UNSPECIFIED ATRIAL FIBRILLATION (2) Bright red blood per rectum Code(s): K62.5 - HEMORRHAGE OF ANUS AND RECTUM (3) Atrial fibrillation Code(s): I48.91 - UNSPECIFIED ATRIAL FIBRILLATION (4) ESRD (end stage renal disease) on dialysis Code(s): N18.6 - END STAGE RENAL DISEASE; Z99.2 - DEPENDENCE ON RENAL DIALYSIS (5) Rectal bleeding Code(s): K62.5 - HEMORRHAGE OF ANUS AND RECTUM
[2019-08-12] MEDS ORDERED: SODIUM CHLORIDE 250 ML IV PRN (17:53)
--- NOTE | 2019-08-12 17:53 | PN ---
Progress Note, Physician Chief Complaint: Rectal bleeding History of Present Illness: Seen and examined at the bedside awake and alert offers no acute complaints is hungry and wants to eat no sob, cp, fever, chills, or abdominal pain s/p dialysis yesterday - Current Medication List Current Medications: Active Medications Diltiazem HCl (Cardizem Cd -) 240 mg PO DAILY [facility] Last Admin: 08/12/19 09:27 Dose: 240 mg Documented by: Sodium Chloride (Normal Saline -) 250 mls @ 3,000 mls/hr IV PRN PRN PRN Reason: Hypotension during Dialysis Stop: 08/12/19 18:49 Pantoprazole Sodium (Protonix -) 40 mg PO BID [facility] - Objective Vital Signs: Vital Signs Temperature 98.1 F 08/12/19 14:00 Pulse Rate 92 H 08/12/19 14:00 Respiratory Rate 08/12/19 14:00 Blood Pressure 102/73 08/12/19 14:00 O2 Sat by Pulse Oximetry (%) 96 08/12/19 09:00 Constitutional: Yes: No Distress Neck: Yes: Supple Cardiovascular: Yes: Regular Rate and Rhythm Respiratory: Yes: Regular Gastrointestinal: Yes: Soft Extremities: No: Cyanosis Edema: No Neurological: Yes: Alert, Oriented Labs: CBC, BMP 08/12/19 07:26 08/12/19 07:26 INR, PTT INR 1.08 (0.83-1.09) 08/11/19 06:50 Assessment/Plan 74 year old male with history of ESRD on HD, CVA, hypertension, CHF, atrial fibrillation on coumadin who presents from home with complaints of rectal bleeding and groin pain. 1. ESRD on HD 2. Acute on chronic anemia 3. Inguinal hernia 4. R.o GI bleed 5. CHF with recent echo with low EF 6. Afib on coumadin s/p dialysis yesterday with 2 prbc transfusion next planned dialysis is tomorrow pt is now agreeable to endoscopic evaluation Cardiology following Surgical consult for inguinal hernia Advance diet as per GI/Surgery Thank you Gerard Trejo DO
--- NOTE | 2019-08-12 19:56 | PN ---
Teaching Attending Note Name of Resident: Mik Ruiz ATTENDING PHYSICIAN STATEMENT I saw and evaluated the patient. I reviewed the resident's note and discussed the case with the resident. I agree with the resident's findings and plan as documented. SUBJECTIVE: Patient seen and examined at bedside, endorses improvement of abdominal pain, GI requesting for colonoscopy that pt. transferred to tertiary care, will wait for Surgery recs. VSS. OBJECTIVE: GA AAox3, elderly, vitiligo around lips HEENT NC/AT, mild JVD, neck supple, Dry MM Chest Good air entry b/l, no crackles or wheezing CVS Irregularly irregular, normal rate Abd Soft, mildly distended, lower abdominal pain w/o guarding, BS decreased Ext 1+ pitting edema b/l, R AVf w/ good thrill Vital Signs - 24 hr 08/11/19 08/11/19 08/11/19 20:20 20:35 21:00 Temperature Pulse Rate 107 H 118 H Respiratory 18 18 Rate Blood Pressure 101/69 108/95 O2 Sat by Pulse 96 Oximetry (%) 08/11/19 08/12/19 08/12/19 21:08 01:08 05:00 Temperature 98.2 F 98 F 98.3 F Pulse Rate 116 H 121 H 126 H Respiratory 20 20 20 Rate Blood Pressure 100/67 118/62 124/92 O2 Sat by Pulse Oximetry (%) 08/12/19 08/12/19 08/12/19 09:00 12:51 14:00 Temperature 97.5 F L 98 F 98.1 F Pulse Rate 113 H 110 H 92 H Respiratory 20 20 20 Rate Blood Pressure 114/90 122/88 102/73 O2 Sat by Pulse 96 Oximetry (%) 08/12/19 18:00 Temperature 98.0 F Pulse Rate 104 H Respiratory 20 Rate Blood Pressure 120/74 O2 Sat by Pulse Oximetry (%) Laboratory Results - last 24 hr 08/11/19 08/12/19 08/12/19 08:25 07:26 07:26 WBC 9.0 RBC 2.83 L Hgb 9.3 L Hct 27.6 L D MCV 97.3 H MCH 32.7 MCHC 33.6 RDW 16.6 H Plt Count 141 MPV 8.8 Absolute Neuts (auto) 6.4 Neutrophils % 71.5 Lymphocytes % 12.3 Monocytes % 13.6 H Eosinophils % 2.0 Basophils % 0.6 Nucleated RBC % 0 Sodium 138 Potassium 4.3 Chloride 100 Carbon Dioxide 30 Anion Gap 8 BUN 20.1 H Creatinine 6.6 H Est GFR (CKD-EPI)AfAm 8.74 Est GFR (CKD-EPI)NonAf 7.54 POC Glucometer Random Glucose 82 Calcium 7.7 L Total Bilirubin 1.2 H AST 31 ALT 14 Alkaline Phosphatase 63 Total Protein 6.1 L Albumin 3.2 L COVID-19 (KAYDEN) Not detected 08/12/19 16:55 WBC RBC Hgb Hct MCV MCH MCHC RDW Plt Count MPV Absolute Neuts (auto) Neutrophils % Lymphocytes % Monocytes % Eosinophils % Basophils % Nucleated RBC % Sodium Potassium Chloride Carbon Dioxide Anion Gap BUN Creatinine Est GFR (CKD-EPI)AfAm Est GFR (CKD-EPI)NonAf POC Glucometer 78 Random Glucose Calcium Total Bilirubin AST ALT Alkaline Phosphatase Total Protein Albumin COVID-19 (KAYDEN) Home Medications Medication Instructions Recorded Diltiazem Cd [Cardizem Cd -] 240 mg PO DAILY 07/30/19 Warfarin Na [Coumadin] 7 mg PO ASDIR 07/30/19 Warfarin Sodium 5 mg PO ASDIR 07/30/19 Current Medications Generic Name Dose Route Start Last Admin Trade Name Freq PRN Reason Stop Dose Admin Diltiazem HCl 240 mg 08/12/19 10:00 08/12/19 09:27 Cardizem Cd - PO 240 mg DAILY STEVE Administration Epoetin Stevie 20,000 unit 08/13/19 06:00 Procrit - IVPUSH 08/13/19 06:01 ONCE ONE Sodium Chloride 250 mls @ 3,000 mls/hr 08/12/19 17:53 Normal Saline - IV 08/13/19 17:53 PRN PRN Hypotension during Dialysis Pantoprazole Sodium 40 mg 08/12/19 22:00 Protonix - PO BID STEVE ASSESSMENT AND PLAN: 74 M BRBPR, suspected LGIB, ?UGIB WELL ?incarcerated inguinal hernia, low suspicion HTN HLD ESRD on HD CHF GERD Anemia Afib on AC Plan: Cont. to hold Coumadin until BRBPR is addressed Transfuse w/ goal >7.0 (avoid overload) Renal following GI following Surgery consulted for inguinal hernia and BRBPR PPI BID DVT ppx: SCD for now
[2019-08-12] MEDS: PANTOPRAZOLE 40 MG TABLET PO SCH (21:25)
[2019-08-13] MEDS ORDERED: EPOETIN ALFA 20,000 UNIT/1 ML VIAL IVPUSH ONE (06:00)
--- NOTE | 2019-08-13 08:19 | PN ---
Progress Note (short form) - Note Progress Note: Reviewed notes from 08/11: Patient amenable to endoscopic evaluations. Given recent NSTEMI, comrbidities and preexisting cardiac dysfunction, bilateral inguinal hernias with colon involvement ( that could make colonoscopy potentially more complicated or preclude full exam) and as per cardiology recommendations at last visit, transfer should be considered to a tertiary care center for continued evaluation. Problem List - Problems (1) Bright red blood per rectum Code(s): K62.5 - HEMORRHAGE OF ANUS AND RECTUM (2) Inguinal hernia Code(s): K40.90 - UNIL INGUINAL HERNIA, W/O OBST OR GANGR, NOT SPCF RECUR Qualifiers: Obstruction and gangrene presence: without obstruction or gangrene Laterality: unilateral
[2019-08-13] MEDS ORDERED: PT OWN MED DRAWER 7, Y5N ONE (09:12)
[2019-08-13] MEDS: PANTOPRAZOLE 40 MG TABLET PO SCH (09:27)
--- NOTE | 2019-08-13 10:00 | CONSULT ---
- Consultation REQUESTING PROVIDER: CONSULT REQUEST: We have been asked to surgically evaluate this patient for evaluation and managemnt of a right inguinal hernia. PCP:Stanton Morel MD HISTORY OF PRESENT ILLNESS: CTSP 74 y/o A/A male admitted for recurrent/persistant rectal bleeding; hx obtained from the chart; he was uncooperative and complaining he wants to eat; he has refused a GI w/u in the past. He knows he has a hernia on the right for some time. PMHx: ESRD/HTN PSHx: vascular access for dialysis Home Medications Medication Instructions Recorded Diltiazem Cd [Cardizem Cd -] 240 mg PO DAILY 07/30/19 Warfarin Na [Coumadin] 7 mg PO ASDIR 07/30/19 Warfarin Sodium 5 mg PO ASDIR 07/30/19 Allergies Allergy/AdvReac Type Severity Reaction Status Date / Time ramipril Allergy Severe Swelling Verified 07/30/19 06:13 REVIEW OF SYSTEMS:reviwed from the chart; he was uncooperative. PHYSICAL EXAM: GENERAL: Awake, alert, and fully oriented, in no acute distress. HEAD: Normal with no signs of trauma. EYES: PERRL, sclera anicteric, conjunctiva clear. NECK: Normal ROM, supple without lymphadenopathy, JVD, or masses. ABDOMEN: Soft, nontender, not distended, normoactive bowel sounds, no guarding, no rebound, no masses. No organomegaly. No scars; reducible RIH; reducible LIH; refused HUMAIRA. MUSCULOSKELETAL: Normal ROM at all joints. No bony deformities or tenderness. No CVA tenderness. UPPER EXTREMITIES: 2+ pulses, warm, well-perfused. No cyanosis. Cap refill <2 seconds. No peripheral edema. LOWER EXTREMITIES: 2+ pulses, warm, well-perfused. No calf tenderness. No peripheral edema. NEUROLOGICAL: Normal speech, gait not observed. PSYCH: Cooperative. Good eye contact. Appropriate mood and affect. SKIN: Warm, dry, normal turgor, no rashes or lesions noted. Vital Signs Temperature 98.1 F 08/13/19 05:00 Pulse Rate 118 H 08/13/19 05:00 Respiratory Rate 20 08/13/19 05:00 Blood Pressure 124/84 08/13/19 05:00 O2 Sat by Pulse Oximetry (%) 94 L 08/12/19 21:00 Lab Results WBC 9.0 K/mm3 (4.0-10.0) 08/12/19 07:26 RBC 2.83 M/mm3 (4.00-5.60) L 08/12/19 07:26 Hgb 9.3 GM/dL (11.7-16.9) L 08/12/19 07:26 Hct 27.6 % (35.4-49) L D 08/12/19 07:26 MCV 97.3 fl (80-96) H 08/12/19 07:26 MCHC 33.6 g/dl (32.0-35.9) 08/12/19 07:26 RDW 16.6 % (11.9-15.9) H 08/12/19 07:26 Plt Count 141 K/MM3 (134-434) 08/12/19 07:26 INR 1.08 (0.83-1.09) 08/11/19 06:50 Sodium 138 mmol/L (136-145) 08/12/19 07:26 Potassium 4.3 mmol/L (3.5-5.1) 08/12/19 07:26 Chloride 100 mmol/L (98-107) 08/12/19 07:26 Carbon Dioxide 30 mmol/L (21-32) 08/12/19 07:26 Anion Gap 8 MMOL/L (8-16) 08/12/19 07:26 BUN 20.1 mg/dL (7-18) H 08/12/19 07:26 Creatinine 6.6 mg/dL (0.55-1.3) H 08/12/19 07:26 Random Glucose 82 mg/dL (74-106) 08/12/19 07:26 Calcium 7.7 mg/dL (8.5-10.1) L 08/12/19 07:26 Blood Type AB POSITIVE 08/11/19 06:50 Antibody Screen Negative 08/11/19 06:50 IMP: GIB of ? origin; [facility]'s PLAN: Would need GI w/u and evaluation of his prostate prior to any planned hernia repair; d/w him possibility of incarceration and/or strangulation should he not have surgery; prn surgical f/u. Antwan Acosta MD FACS
[2019-08-13 12:31] LABS: BASO % 0.4 % (0-2.0); EOS % 4.3 % (0-4.5); HEMATOCRIT 26.9 % (35.4-49); HEMOGLOBIN 9.1 GM/dL (11.7-16.9); LYMPH % 12.4 % (8-40); MCHC 33.9 g/dl (32.0-35.9); MEAN CELL VOLUME 97.5 fl (80-96); MEAN PLT VOLUME 9.1 fl (7.5-11.1); NEUT % 68.9 % (42.8-82.8); PLATELET COUNT 134 K/MM3 (134-434); RBC 2.76 M/mm3 (4.00-5.60); RDW 16.9 % (11.9-15.9); WHITE BLOOD COUNT 7.5 K/mm3 (4.0-10.0)
[2019-08-13 12:52] LABS: BLOOD UREA NITROGEN 28.7 mg/dL (7-18); CALCIUM 7.4 mg/dL (8.5-10.1); POTASSIUM 3.7 mmol/L (3.5-5.1)
[2019-08-13 12:56] LABS: CREATININE 8.7 mg/dL (0.55-1.3)
--- NOTE | 2019-08-13 14:06 | PN ---
Progress Note (short form) - Note Progress Note: cc: GI bleed s: no chest pain, palps, dizziness, dyspnea Current Medications Generic Name Dose Route Start Last Admin Trade Name Sherifq PRN Reason Stop Dose Admin Diltiazem HCl 240 mg 08/12/19 10:00 08/12/19 09:27 Cardizem Cd - PO 240 mg DAILY STEVE Administration Epoetin Stevie 20,000 unit 08/13/19 06:00 Procrit - IVPUSH 08/13/19 06:01 ONCE ONE Sodium Chloride 250 mls @ 3,000 mls/hr 08/12/19 17:53 Normal Saline - IV 08/13/19 17:53 PRN PRN Hypotension during Dialysis Pantoprazole Sodium 40 mg 08/12/19 22:00 08/13/19 09:27 Protonix - PO 40 mg BID SETVE Administration Vital Signs Period Temp Pulse Resp BP Sys/Mckinley Pulse Ox Last 24 Hr 97.8 F-98.8 F 79-119 16-20 101-160/64-105 94-96 Constitutional: Yes: No Distress, Calm Eyes: Yes: Conjunctiva Clear, EOM Intact HENT: Yes: Atraumatic, Normocephalic Neck: Yes: Supple, Trachea Midline Respiratory: Yes: Regular, CTA Bilaterally Gastrointestinal: Yes: Normal Bowel Sounds, Soft Cardiovascular: Yes: Regular Rate and Rhythm JVD: No Carotid Bruit: No PMI: Non-Displaced Heart Sounds: Yes: S1, S2 Murmur: No: Systolic Murmur Musculoskeletal: No: Back Pain Edema: No Integumentary: No: Jaundice Neurological: Yes: Alert, Oriented Psychiatric: No: Agitated Assessment/Plan echo 07/2019 mod conc LVH, increased echogenicity suggesting cardiac amyllodisis, paradoxical septal motion, severely reduced LV function, EF 25-30%, restrictive physiology, RV mod dilated, RV functino mild t mod reduced. LA mildly dilated, RA mild to mod dilated, mod MR, tr to mild AR, severe pulm HTN, RVSP elevated at 69 mmHG. EKG afib rate 112 bpm, no ischemic changes CXR: no acute process GI bleed, preop - GI consulted - has been off coumadin - RCRI = 4, at high risk for cardiovascular complications - however he is currently euvolemic, asymptomatic. 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
[2019-08-13 14:27] VITALS: BP 120/89; PULSE 102; TEMP 97.6
--- NOTE | 2019-08-13 17:22 | DS ---
Physical Exam: SUBJECTIVE: Patient seen and examined at bedside this morning. No acute events overnight. Patient agreeable for transfer to [facility] for further care. OBJECTIVE: Vital Signs Temperature 97.6 F 08/13/19 14:26 Pulse Rate 102 H 08/13/19 14:26 Respiratory Rate 18 08/13/19 14:26 Blood Pressure 120/89 08/13/19 14:26 O2 Sat by Pulse Oximetry (%) 96 08/13/19 09:00 PHYSICAL EXAM Gen: AAOx3, NAD HEENT: NCAT, Eomi, vitiligo of lips Neck: R mild jvd Cardio: irregular, s1s2, no mrg noted Pulm: cta b/l Abd: soft, nontender, nondistended Ext: no edema, b/l UE fistula, R with pulsation and bruit LABS Laboratory Results - last 24 hr 08/12/19 08/13/19 08/13/19 21:18 05:51 10:45 WBC 7.5 RBC 2.76 L Hgb 9.1 L Hct 26.9 L MCV 97.5 H MCH 33.0 MCHC 33.9 RDW 16.9 H Plt Count 134 MPV 9.1 Absolute Neuts (auto) 5.2 Neutrophils % 68.9 Lymphocytes % 12.4 Monocytes % 14.0 H Eosinophils % 4.3 D Basophils % 0.4 Nucleated RBC % 1 H Sodium Potassium Chloride Carbon Dioxide Anion Gap BUN Creatinine Est GFR (CKD-EPI)AfAm Est GFR (CKD-EPI)NonAf POC Glucometer 107 93 Random Glucose Calcium 08/13/19 10:45 WBC RBC Hgb Hct MCV MCH MCHC RDW Plt Count MPV Absolute Neuts (auto) Neutrophils % Lymphocytes % Monocytes % Eosinophils % Basophils % Nucleated RBC % Sodium 138 Potassium 3.7 Chloride 100 Carbon Dioxide 28 Anion Gap 10 BUN 28.7 H Creatinine 8.7 H* Est GFR (CKD-EPI)AfAm 6.26 Est GFR (CKD-EPI)NonAf 5.40 POC Glucometer Random Glucose 119 H Calcium 7.4 L HOSPITAL COURSE: Date of Admission:08/11/19 Date of Discharge: 08/13/19 Patient is a 73 y/o male with PMH significant ESRD on HD (M/W/F), CVA (no residual deficits), HTN, a-fib (on coumadin), recently admitted for r/o ACS and GI bleed (s/p transfusion) and left AMA 10 days ago, presenting today at 's request and with concerns for blood with bowel movement. He is admitted with GIB. He was evaluated by GI. Endoscopic evaluation was again recommended, but patient initially refused. He was also seen by cardio and palliative care. Patient was then agreeable for the procedure, but required to be transferred to a tertiary care center as he is high risk, given his recent NSTEMI, comrbidities and preexisting cardiac dysfunction, bilateral inguinal hernias with colon involvement that could make colonoscopy potentially more complicated or preclude full exam. Patient accepted at [facility] and was subsequently transferred. Minutes to complete discharge: 36 Discharge Summary Problems reviewed: Yes Reason For Visit: ATRIAL FIBRILLATION,HEMATOCHEZIA Condition: Stable - Instructions Referrals: Gaye Cho MD [Primary Care Provider] - Disposition: TRANSFER ACUTE CARE/OTHER HOSP - Home Medications Comprehensive Discharge Medication List: Ambulatory Orders Diltiazem Cd [Cardizem Cd -] 240 mg PO DAILY 07/30/19 Warfarin Na [Coumadin] 7 mg PO ASDIR 07/30/19 Warfarin Sodium 5 mg PO ASDIR 07/30/19 This patient is new to me today: Yes Date on this admission: 08/13/19 Emergency Visit: Yes ED Registration Date: 08/11/19 Care time: The patient presented to the Emergency Department on the above date and was hospitalized for further evaluation of their emergent condition. Critical Care patient: No - Discharge Referral Referred to [facility] No ATTENDING PHYSICIAN STATEMENT I saw and evaluated the patient. I reviewed the resident's note and discussed the case with the resident. I agree with the resident's findings and plan as documented. SUBJECTIVE: OBJECTIVE: ASSESSMENT AND PLAN:
--- NOTE | 2019-08-15 09:15 | PN ---
Teaching Attending Note Name of Resident: Rula Adan ATTENDING PHYSICIAN STATEMENT I saw and evaluated the patient. I reviewed the resident's note and discussed the case with the resident. I agree with the resident's findings and plan as documented. SUBJECTIVE: Patient seen and examined at bedside, endorses improvement of abdominal pain, will transfer to [facility] as per GI recommendations for EGD/colonoscopy for rectal bleeding. VSS. OBJECTIVE: GA AAox3, elderly, vitiligo around lips HEENT NC/AT, mild JVD, neck supple, Dry MM Chest Good air entry b/l, no crackles or wheezing CVS Irregularly irregular, normal rate Abd Soft, mildly distended, lower abdominal pain w/o guarding, BS decreased Ext 1+ pitting edema b/l, R AVf w/ good thrill Last Vital Signs Temp Pulse Resp BP Pulse Ox 97.6 F 102 H 18 120/89 96 08/13/19 14:26 08/13/19 14:26 08/13/19 14:26 08/13/19 14:26 08/13/19 09:00 Laboratory Results - last 24 hr 08/11/19 06:50 Blood Type AB POSITIVE Antibody Screen Negative Crossmatch See Detail Laboratory Tests 08/11/19 08/11/19 08/11/19 06:50 06:50 06:50 WBC 8.2 RBC 2.07 L Hgb 6.8 L* Hct 20.9 L MCV 100.6 H MCH 32.5 MCHC 32.3 RDW 15.2 Plt Count 149 D MPV 8.8 Absolute Neuts (auto) 5.9 Neutrophils % 72.5 Lymphocytes % 12.1 D Monocytes % 11.0 H Eosinophils % 3.9 Basophils % 0.5 Nucleated RBC % 0 PT with INR 12.70 INR 1.08 PTT (Actin FS) 30.8 Sodium 137 Potassium 4.6 Chloride 102 Carbon Dioxide 25 Anion Gap 10 BUN 34.7 H Creatinine 9.5 H* Est GFR (CKD-EPI)AfAm 5.63 Est GFR (CKD-EPI)NonAf 4.85 POC Glucometer Random Glucose 96 Calcium 7.6 L Magnesium 2.1 Total Bilirubin 0.6 AST 27 ALT 15 Alkaline Phosphatase 62 Creatine Kinase 239 Creatine Kinase Index 1.3 CK-MB (CK-2) 3.3 Troponin I 0.05 Total Protein 6.1 L Albumin 3.3 L Stool Occult Blood COVID-19 (KAYDEN) Blood Type Antibody Screen Crossmatch 08/11/19 08/11/19 08/11/19 06:50 07:37 08:25 WBC RBC Hgb Hct MCV MCH MCHC RDW Plt Count MPV Absolute Neuts (auto) Neutrophils % Lymphocytes % Monocytes % Eosinophils % Basophils % Nucleated RBC % PT with INR INR PTT (Actin FS) Sodium Potassium Chloride Carbon Dioxide Anion Gap BUN Creatinine Est GFR (CKD-EPI)AfAm Est GFR (CKD-EPI)NonAf POC Glucometer Random Glucose Calcium Magnesium Total Bilirubin AST ALT Alkaline Phosphatase Creatine Kinase Creatine Kinase Index CK-MB (CK-2) Troponin I Total Protein Albumin Stool Occult Blood Positive COVID-19 (KAYDEN) Not detected Blood Type AB POSITIVE Antibody Screen Negative Crossmatch See Detail 08/12/19 08/12/19 08/12/19 07:26 07:26 16:55 WBC 9.0 RBC 2.83 L Hgb 9.3 L Hct 27.6 L D MCV 97.3 H MCH 32.7 MCHC 33.6 RDW 16.6 H Plt Count 141 MPV 8.8 Absolute Neuts (auto) 6.4 Neutrophils % 71.5 Lymphocytes % 12.3 Monocytes % 13.6 H Eosinophils % 2.0 Basophils % 0.6 Nucleated RBC % 0 PT with INR INR PTT (Actin FS) Sodium 138 Potassium 4.3 Chloride 100 Carbon Dioxide 30 Anion Gap 8 BUN 20.1 H Creatinine 6.6 H Est GFR (CKD-EPI)AfAm 8.74 Est GFR (CKD-EPI)NonAf 7.54 POC Glucometer 78 Random Glucose 82 Calcium 7.7 L Magnesium Total Bilirubin 1.2 H AST 31 ALT 14 Alkaline Phosphatase 63 Creatine Kinase Creatine Kinase Index CK-MB (CK-2) Troponin I Total Protein 6.1 L Albumin 3.2 L Stool Occult Blood COVID-19 (KAYDEN) Blood Type Antibody Screen Crossmatch 08/12/19 08/13/19 08/13/19 21:18 05:51 10:45 WBC 7.5 RBC 2.76 L Hgb 9.1 L Hct 26.9 L MCV 97.5 H MCH 33.0 MCHC 33.9 RDW 16.9 H Plt Count 134 MPV 9.1 Absolute Neuts (auto) 5.2 Neutrophils % 68.9 Lymphocytes % 12.4 Monocytes % 14.0 H Eosinophils % 4.3 D Basophils % 0.4 Nucleated RBC % 1 H PT with INR INR PTT (Actin FS) Sodium Potassium Chloride Carbon Dioxide Anion Gap BUN Creatinine Est GFR (CKD-EPI)AfAm Est GFR (CKD-EPI)NonAf POC Glucometer 107 93 Random Glucose Calcium Magnesium Total Bilirubin AST ALT Alkaline Phosphatase Creatine Kinase Creatine Kinase Index CK-MB (CK-2) Troponin I Total Protein Albumin Stool Occult Blood COVID-19 (KAYDEN) Blood Type Antibody Screen Crossmatch 08/13/19 10:45 WBC RBC Hgb Hct MCV MCH MCHC RDW Plt Count MPV Absolute Neuts (auto) Neutrophils % Lymphocytes % Monocytes % Eosinophils % Basophils % Nucleated RBC % PT with INR INR PTT (Actin FS) Sodium 138 Potassium 3.7 Chloride 100 Carbon Dioxide 28 Anion Gap 10 BUN 28.7 H Creatinine 8.7 H* Est GFR (CKD-EPI)AfAm 6.26 Est GFR (CKD-EPI)NonAf 5.40 POC Glucometer Random Glucose 119 H Calcium 7.4 L Magnesium Total Bilirubin AST ALT Alkaline Phosphatase Creatine Kinase Creatine Kinase Index CK-MB (CK-2) Troponin I Total Protein Albumin Stool Occult Blood COVID-19 (KAYDEN) Blood Type Antibody Screen Crossmatch Home Medications Medication Instructions Recorded Diltiazem Cd [Cardizem Cd -] 240 mg PO DAILY 07/30/19 Warfarin Na [Coumadin] 7 mg PO ASDIR 07/30/19 Warfarin Sodium 5 mg PO ASDIR 07/30/19 ASSESSMENT AND PLAN: 74 M BRBPR, suspected LGIB, ?UGIB WELL ?incarcerated inguinal hernia, low suspicion HTN HLD ESRD on HD CHF GERD Anemia Afib on AC Plan: Cont. to hold Coumadin until BRBPR is addressed (will need diagnostic/therapeutic colonoscopy) Transfuse w/ goal >7.0 (avoid overload) Renal following GI following PPI BID DVT ppx: SCD for now Transfer to [facility] to resume care
== END 2019-08-13 15:12 | disposition short-term general hospital (02) | DRG 377 ==
LOC: JER 05:56 → JERBED 08:21 → J5S 11:20
PROC: 30233N1 Transfusion of Nonautologous Red Blood Cells into Peripheral Vein, Percutaneous Approach (ICD-10-PCS; 2019-08-11)
PROC: 5A1D70Z Performance of Urinary Filtration, Intermittent, Less than 6 Hours Per Day (ICD-10-PCS; principal; 2019-08-13)
DX: K92.2 Gastrointestinal hemorrhage, unspecified (principal); N18.6 End stage renal disease; I13.2 Hypertensive heart and chronic kidney disease with heart failure and with stage 5 chronic kidney disease, or end stage renal disease; I50.42 Chronic combined systolic (congestive) and diastolic (congestive) heart failure; Z99.2 Dependence on renal dialysis; K40.90 Unilateral inguinal hernia, without obstruction or gangrene, not specified as recurrent; I48.91 Unspecified atrial fibrillation; D64.9 Anemia, unspecified; I25.10 Atherosclerotic heart disease of native coronary artery without angina pectoris; E78.5 Hyperlipidemia, unspecified; K21.9 Gastro-esophageal reflux disease without esophagitis
CPT/HCPCS: 36415; 36430; 36511; 71045-TC-FY; 74176-TC; 76870-TC; 80048; 80053; 82272; 82550; 82553; 82962; 83735; 84484; 85025; 85610; 85730; 86850; 86900; 86901; 86922; 93005; 93010; 99285-25; J0885; P9038; P9058; U0003

== ENCOUNTER 2020-03-05 11:17 | Inpatient (IN) | payer OTHER, BC ==
[2020-03-05 11:32] VITALS: BMI 27.8
[2020-03-05 17:17] LABS: BASO % 0.6 % (0-2.0); EOS % 0.2 % (0-4.5); HEMATOCRIT 33.3 % (35.4-49); LYMPH % 3.6 % (8-40); MCH 33.6 pg (25.7-33.7); MCHC 33.1 g/dl (32.0-35.9); MEAN CELL VOLUME 101.4 fl (80-96); MEAN PLT VOLUME 9.4 fl (7.5-11.1); MONO % 10.5 % (3.8-10.2); NEUT % 85.1 % (42.8-82.8); PLATELET COUNT 185 K/MM3 (134-434); RBC 3.29 M/mm3 (4.00-5.60); RDW 15.6 % (11.9-15.9); WHITE BLOOD COUNT 16.8 K/mm3 (4.0-10.0)
[2020-03-05 17:55] LABS: POTASSIUM 4.6 mmol/L (3.5-5.1)
[2020-03-05 17:57] LABS: CALCIUM 8.7 mg/dL (8.5-10.1)
[2020-03-05 17:58] LABS: ALBUMIN 2.7 g/dl (3.4-5.0); BLOOD UREA NITROGEN 17.9 mg/dL (7-18); MAGNESIUM 1.9 mg/dL (1.8-2.4)
[2020-03-05 18:01] LABS: CREATININE 4.5 mg/dL (0.55-1.3)
[2020-03-05 18:03] LABS: BILIRUBIN,TOTAL 1.2 mg/dL (0.2-1); TOT PROT 6.7 g/dl (6.4-8.2)
[2020-03-05 18:22] LABS: ANISOCYTOSIS 1+; MACROCYTOSIS 1+; PLATELET ESTIMATE NORMAL
[2020-03-05] MEDS ORDERED: CLINDAMYCIN IVPB 300 MG in DEXTROSE 5%-WATER - 48 ML IVPB ONE (18:37)
[2020-03-05] MEDS ORDERED: CLINDAMYCIN 600MG PREMIX IVPB 600 MG/50 ML BAG IVPB ONE (19:33)
[2020-03-05] MEDS ORDERED: ACETAMINOPHEN 1000 MG/100 ML VIAL (NON FORMULARY) IVPB PRN (21:14)
[2020-03-05] MEDS ORDERED: ACETAMINOPHEN INJECTION 100 ML IVPB ONE (23:16)
[2020-03-06] MEDS ORDERED: CEFAZOLIN 1 GM/D5W 1 GM/50 ML BAG IVPB SCH (08:00)
[2020-03-06] MEDS: CEFAZOLIN 1 GM in DEXTROSE 5%-WATER - 1 GM/50 ML IVPB IVPB SCH ×2 (09:55→21:44)
[2020-03-06] MEDS ORDERED: ceFAZolin SODIUM 1 GM VIAL ONE ×2 (10:05→21:25)
[2020-03-06] MEDS ORDERED: DEXTROSE 5%-WATER - 50 ML IVPB ONE ×2 (10:06→21:25)
[2020-03-06 17:03] LABS: BASO % 0.1 % (0-2.0); EOS % 0.6 % (0-4.5); HEMATOCRIT 31.9 % (35.4-49); HEMOGLOBIN 10.4 GM/dL (11.7-16.9); LYMPH % 4.5 % (8-40); MCH 33.2 pg (25.7-33.7); MCHC 32.7 g/dl (32.0-35.9); MEAN CELL VOLUME 101.5 fl (80-96); MEAN PLT VOLUME 9.3 fl (7.5-11.1); MONO % 12.9 % (3.8-10.2); NEUT % 81.9 % (42.8-82.8); PLATELET COUNT 176 K/MM3 (134-434); RBC 3.14 M/mm3 (4.00-5.60); RDW 15.8 % (11.9-15.9); WHITE BLOOD COUNT 15.5 K/mm3 (4.0-10.0)
[2020-03-06 17:10] LABS: INR 1.43 (0.83-1.09); PROTHROMBIN TIME (PATIENT) 17.4 SEC (9.7-13.0)
[2020-03-06 17:13] LABS: ACTIVATED PTT 30.3 SECONDS (25.2-36.5)
[2020-03-06 18:05] LABS: POTASSIUM 3.6 mmol/L (3.5-5.1)
[2020-03-06 18:08] LABS: CALCIUM 7.9 mg/dL (8.5-10.1)
[2020-03-06 18:09] LABS: ALBUMIN 2.6 g/dl (3.4-5.0); MAGNESIUM 1.8 mg/dL (1.8-2.4)
[2020-03-06 18:13] LABS: TOT PROT 6.1 g/dl (6.4-8.2)
[2020-03-06 18:14] LABS: BILIRUBIN,TOTAL 0.7 mg/dL (0.2-1)
[2020-03-06] MEDS: HEPARIN NA (PORCINE) 5,000 UNITS/ML 1ML VIAL SQ SCH (21:44)
[2020-03-07] MEDS: HEPARIN NA (PORCINE) 5,000 UNITS/ML 1ML VIAL SQ SCH ×3 (05:40→22:11)
[2020-03-07] MEDS ORDERED: ceFAZolin SODIUM 1 GM VIAL ONE (09:17)
[2020-03-07] MEDS ORDERED: DEXTROSE 5%-WATER - 50 ML IVPB ONE (09:17)
[2020-03-07] MEDS: CEFAZOLIN 1 GM in DEXTROSE 5%-WATER - 1 GM/50 ML IVPB IVPB SCH (09:26)
[2020-03-07] MEDS: metoPROLOL SUCCINATE 25 MG TAB.SR.24H (FP) PO SCH (09:29)
[2020-03-07] MEDS ORDERED: SODIUM CHLORIDE 250 ML IV PRN (15:42)
[2020-03-07] MEDS ORDERED: ACETAMINOPHEN 325 MG TABLET (FP) PO PRN (18:41)
[2020-03-08] MEDS: HEPARIN NA (PORCINE) 5,000 UNITS/ML 1ML VIAL SQ SCH ×3 (06:46→22:02)
[2020-03-08 09:39] LABS: HEMATOCRIT 30.3 % (35.4-49); HEMOGLOBIN 9.6 GM/dL (11.7-16.9); MCH 32.2 pg (25.7-33.7); MCHC 31.6 g/dl (32.0-35.9); MEAN CELL VOLUME 101.8 fl (80-96); MEAN PLT VOLUME 10.5 fl (7.5-11.1); PLATELET COUNT 165 K/MM3 (134-434); RBC 2.98 M/mm3 (4.00-5.60); RDW 15.6 % (11.9-15.9); WHITE BLOOD COUNT 14.1 K/mm3 (4.0-10.0)
[2020-03-08 09:44] LABS: INR 1.34 (0.83-1.09); PROTHROMBIN TIME (PATIENT) 16.1 SEC (9.7-13.0)
[2020-03-08] MEDS ORDERED: CEFAZOLIN 1 GM in DEXTROSE 5%-WATER - 1 GM/50 ML IVPB IVPB SCH (10:00)
[2020-03-08 10:01] LABS: POTASSIUM 3.6 mmol/L (3.5-5.1)
[2020-03-08 10:04] LABS: CALCIUM 7.6 mg/dL (8.5-10.1)
[2020-03-08 10:05] LABS: ALBUMIN 2.5 g/dl (3.4-5.0); BLOOD UREA NITROGEN 44.1 mg/dL (7-18)
[2020-03-08 10:08] LABS: PHOSPHOROUS 2.8 mg/dL (2.5-4.9)
[2020-03-08 10:48] LABS: CREATININE 8.5 mg/dL (0.55-1.3)
[2020-03-08] MEDS ORDERED: ceFAZolin SODIUM 1 GM VIAL ONE (12:54)
[2020-03-08] MEDS ORDERED: DEXTROSE 5%-WATER - 50 ML IVPB ONE ×2 (12:54→17:05)
[2020-03-08] MEDS: metoPROLOL SUCCINATE 25 MG TAB.SR.24H (FP) PO SCH (12:58)
[2020-03-08] MEDS ORDERED: VANCOMYCIN 1 GM in D5W (PRE-DOCKED) 1,000 MG/250 ML IVPB ONE (14:16)
[2020-03-08] MEDS ORDERED: PIPERACILLIN/TAZOBACTAM 2.25 GM VIAL IVPB ONE (17:05)
[2020-03-08] MEDS: PIPERACILLIN/TAZOB 2.25 GM 2.25 GM in DEXTROSE 5%-WATER - 50 ML IVPB SCH (18:43)
[2020-03-09] MEDS ORDERED: PIPERACILLIN/TAZOBACTAM 2.25 GM VIAL IVPB ONE ×3 (01:07→17:31)
[2020-03-09] MEDS ORDERED: DEXTROSE 5%-WATER - 50 ML IVPB ONE ×3 (01:08→17:31)
[2020-03-09] MEDS: PIPERACILLIN/TAZOB 2.25 GM 2.25 GM in DEXTROSE 5%-WATER - 50 ML IVPB SCH ×3 (01:29→17:32)
[2020-03-09] MEDS: HEPARIN NA (PORCINE) 5,000 UNITS/ML 1ML VIAL SQ SCH ×3 (05:30→21:34)
[2020-03-09] MEDS: metoPROLOL SUCCINATE 25 MG TAB.SR.24H (FP) PO SCH (11:12)
[2020-03-09] MEDS: ACETAMINOPHEN 1000 MG/100 ML VIAL (NON FORMULARY) IVPB PRN ×2 (14:04→20:21)
[2020-03-09] MEDS: SILVER SULFADIAZINE 1% TOP CREAM 50 GM JAR TP SCH (14:06)
[2020-03-09] MEDS ORDERED: CALCIUM ACETATE/AL SULFATE TOP 1.9 GM/PACKET PACKET TP PRN (16:09)
[2020-03-09] MEDS ORDERED: AMMONIUM LACTATE 12% LOTION 225 GM BOTTLE TP PRN (16:10)
[2020-03-10] MEDS ORDERED: DEXTROSE 5%-WATER - 50 ML IVPB ONE ×3 (02:53→17:35)
[2020-03-10] MEDS ORDERED: PIPERACILLIN/TAZOBACTAM 2.25 GM VIAL IVPB ONE ×3 (02:53→17:35)
[2020-03-10] MEDS: PIPERACILLIN/TAZOB 2.25 GM 2.25 GM in DEXTROSE 5%-WATER - 50 ML IVPB SCH ×3 (02:57→17:37)
[2020-03-10] MEDS: HEPARIN NA (PORCINE) 5,000 UNITS/ML 1ML VIAL SQ SCH ×3 (05:23→21:12)
[2020-03-10] MEDS: ACETAMINOPHEN 1000 MG/100 ML VIAL (NON FORMULARY) IVPB PRN ×2 (08:37→19:37)
[2020-03-10] MEDS: metoPROLOL SUCCINATE 25 MG TAB.SR.24H (FP) PO SCH (09:52)
[2020-03-10] MEDS ORDERED: SODIUM CHLORIDE 250 ML IV PRN ×2 (11:11→14:59)
[2020-03-10] MEDS: SILVER SULFADIAZINE 1% TOP CREAM 50 GM JAR TP SCH (13:53)
[2020-03-10 14:30] LABS: HEMATOCRIT 30.2 % (35.4-49); HEMOGLOBIN 9.9 GM/dL (11.7-16.9); MCH 32.9 pg (25.7-33.7); MCHC 32.9 g/dl (32.0-35.9); MEAN PLT VOLUME 11.6 fl (7.5-11.1); PLATELET COUNT 166 K/MM3 (134-434); RBC 3.02 M/mm3 (4.00-5.60); RDW 15.4 % (11.9-15.9); WHITE BLOOD COUNT 16.8 K/mm3 (4.0-10.0)
[2020-03-10 14:48] LABS: POTASSIUM 3.8 mmol/L (3.5-5.1)
[2020-03-10 14:49] LABS: CALCIUM 7.9 mg/dL (8.5-10.1)
[2020-03-10 14:50] LABS: ALBUMIN 2.4 g/dl (3.4-5.0); BLOOD UREA NITROGEN 39.7 mg/dL (7-18); MAGNESIUM 1.8 mg/dL (1.8-2.4)
[2020-03-10 14:55] LABS: TOT PROT 6.4 g/dl (6.4-8.2)
[2020-03-10] MEDS ORDERED: EPOETIN ALFA-EPBX 10,000 UNIT/ML VIAL IVPUSH ONE (15:00)
[2020-03-10 15:16] LABS: CREATININE 7.5 mg/dL (0.55-1.3)
[2020-03-10] MEDS: MELATONIN 5 MG TABLETS PO PRN (21:12)
[2020-03-10] MEDS ORDERED: oxyCODONE HCL 5 MG TABLET PO ONE (21:24)
[2020-03-10 22:06] LABS: HEP B CORE AB, TOT Negative (Negative)
[2020-03-11] MEDS ORDERED: PIPERACILLIN/TAZOBACTAM 2.25 GM VIAL IVPB ONE ×3 (01:13→17:03)
[2020-03-11] MEDS ORDERED: DEXTROSE 5%-WATER - 50 ML IVPB ONE ×3 (01:14→17:03)
[2020-03-11] MEDS: ACETAMINOPHEN 1000 MG/100 ML VIAL (NON FORMULARY) IVPB PRN (01:15)
[2020-03-11] MEDS: PIPERACILLIN/TAZOB 2.25 GM 2.25 GM in DEXTROSE 5%-WATER - 50 ML IVPB SCH ×3 (01:40→17:40)
[2020-03-11] MEDS: HEPARIN NA (PORCINE) 5,000 UNITS/ML 1ML VIAL SQ SCH ×3 (06:55→21:16)
[2020-03-11] MEDS: SILVER SULFADIAZINE 1% TOP CREAM 50 GM JAR TP SCH (09:04)
[2020-03-11] MEDS: metoPROLOL SUCCINATE 25 MG TAB.SR.24H (FP) PO SCH (09:04)
[2020-03-11] MEDS ORDERED: ACETAMINOPHEN 325 MG TABLET (FP) PO PRN (15:36)
[2020-03-11] MEDS ORDERED: SODIUM CHLORIDE 250 ML IV PRN (17:05)
[2020-03-11] MEDS ORDERED: ACETAMINOPHEN 1000 MG/100 ML VIAL (NON FORMULARY) IVPB PRN (22:00)
[2020-03-12] MEDS ORDERED: PIPERACILLIN/TAZOBACTAM 2.25 GM VIAL IVPB ONE ×3 (01:47→17:10)
[2020-03-12] MEDS ORDERED: DEXTROSE 5%-WATER - 50 ML IVPB ONE ×3 (01:48→17:11)
[2020-03-12] MEDS: PIPERACILLIN/TAZOB 2.25 GM 2.25 GM in DEXTROSE 5%-WATER - 50 ML IVPB SCH ×3 (01:51→18:58)
[2020-03-12] MEDS: HEPARIN NA (PORCINE) 5,000 UNITS/ML 1ML VIAL SQ SCH ×3 (05:47→21:22)
[2020-03-12 10:31] LABS: BASO % 0.4 % (0-2.0); EOS % 0.6 % (0-4.5); HEMATOCRIT 30.8 % (35.4-49); HEMOGLOBIN 10.2 GM/dL (11.7-16.9); LYMPH % 3.5 % (8-40); MCH 33.1 pg (25.7-33.7); MCHC 33.2 g/dl (32.0-35.9); MEAN CELL VOLUME 99.7 fl (80-96); MEAN PLT VOLUME 10.7 fl (7.5-11.1); MONO % 7.7 % (3.8-10.2); NEUT % 87.8 % (42.8-82.8); PLATELET COUNT 190 K/MM3 (134-434); RBC 3.09 M/mm3 (4.00-5.60); RDW 15.2 % (11.9-15.9); WHITE BLOOD COUNT 23.5 K/mm3 (4.0-10.0)
[2020-03-12 10:57] LABS: POTASSIUM 3.8 mmol/L (3.5-5.1)
[2020-03-12 10:59] LABS: ALBUMIN 2.2 g/dl (3.4-5.0); BLOOD UREA NITROGEN 36.1 mg/dL (7-18); CALCIUM 7.1 mg/dL (8.5-10.1); MAGNESIUM 1.8 mg/dL (1.8-2.4)
[2020-03-12 11:02] LABS: CREATININE 6.5 mg/dL (0.55-1.3); PHOSPHOROUS 2.9 mg/dL (2.5-4.9)
[2020-03-12 11:04] LABS: BILIRUBIN,TOTAL 0.8 mg/dL (0.2-1)
[2020-03-12 11:52] LABS: ANISOCYTOSIS 1+; MACROCYTOSIS 2+; PLATELET ESTIMATE NORMAL
[2020-03-12] MEDS: metoPROLOL SUCCINATE 25 MG TAB.SR.24H (FP) PO SCH (14:06)
[2020-03-12] MEDS: SILVER SULFADIAZINE 1% TOP CREAM 50 GM JAR TP SCH (14:07)
[2020-03-12] MEDS ORDERED: ACETAMINOPHEN 325 MG TABLET (FP) PO ONE ×2 (15:33→15:34)
[2020-03-12] MEDS ORDERED: VANCOMYCIN 1 GRAM (PRE-DOCKED) 1,000 MG/250 ML BAG IVPB ONE (15:41)
[2020-03-12] MEDS ORDERED: ACETAMINOPHEN 325 MG TABLET (FP) PO PRN (17:52)
[2020-03-12] MEDS ORDERED: ACETAMINOPHEN 1000 MG/100 ML VIAL (NON FORMULARY) IVPB PRN (17:53)
[2020-03-12] MEDS: MELATONIN 5 MG TABLETS PO PRN (20:39)
[2020-03-13] MEDS ORDERED: PIPERACILLIN/TAZOBACTAM 2.25 GM VIAL IVPB ONE ×3 (02:38→20:38)
[2020-03-13] MEDS ORDERED: DEXTROSE 5%-WATER - 50 ML IVPB ONE ×3 (02:38→20:38)
[2020-03-13] MEDS: PIPERACILLIN/TAZOB 2.25 GM 2.25 GM in DEXTROSE 5%-WATER - 50 ML IVPB SCH ×3 (02:47→20:40)
[2020-03-13 06:55] LABS: BASO % 0.8 % (0-2.0); EOS % 0.6 % (0-4.5); HEMATOCRIT 29.9 % (35.4-49); MCH 33.2 pg (25.7-33.7); MCHC 33.5 g/dl (32.0-35.9); MEAN PLT VOLUME 10.8 fl (7.5-11.1); MONO % 8.8 % (3.8-10.2); NEUT % 85.8 % (42.8-82.8); PLATELET COUNT 178 K/MM3 (134-434); RBC 3.02 M/mm3 (4.00-5.60); WHITE BLOOD COUNT 20.1 K/mm3 (4.0-10.0)
[2020-03-13 07:20] LABS: POTASSIUM 3.3 mmol/L (3.5-5.1)
[2020-03-13 07:25] LABS: ALBUMIN 2.2 g/dl (3.4-5.0); CALCIUM 7.2 mg/dL (8.5-10.1); MAGNESIUM 1.7 mg/dL (1.8-2.4)
[2020-03-13 07:26] LABS: BLOOD UREA NITROGEN 21.2 mg/dL (7-18)
[2020-03-13 07:28] LABS: CREATININE 4.5 mg/dL (0.55-1.3); PHOSPHOROUS 2.1 mg/dL (2.5-4.9)
[2020-03-13 07:30] LABS: BILIRUBIN,TOTAL 1.5 mg/dL (0.2-1); TOT PROT 5.8 g/dl (6.4-8.2)
[2020-03-13 08:35] LABS: ANISOCYTOSIS 1+; MACROCYTOSIS 1+; PLATELET ESTIMATE NORMAL; TARGET CELLS 1+
[2020-03-13] MEDS ORDERED: NAPH,MB-DB/K PH,MBDB POWDER PACKET PO ONE (09:32)
[2020-03-13] MEDS ORDERED: POTASSIUM CHLORIDE TABS 20 MEQ TABLET.ER (FP) PO ONE (09:32)
[2020-03-13] MEDS ORDERED: MAGNESIUM OXIDE 400 MG TABLET (FP) PO ONE (09:32)
[2020-03-13] MEDS: metoPROLOL SUCCINATE 25 MG TAB.SR.24H (FP) PO SCH (09:35)
[2020-03-13] MEDS: SILVER SULFADIAZINE 1% TOP CREAM 50 GM JAR TP SCH (09:36)
[2020-03-13] MEDS ORDERED: MAGNESIUM SULF 50% (8.12 MEQ/2 ML-1 GM VIAL) IVPB ONE ×2 (09:40→11:36)
[2020-03-13] MEDS ORDERED: PROPOFOL 20 ML ONE (09:52)
[2020-03-13] MEDS ORDERED: MIDAZOLAM HCL 2 MG/2 ML SINGLE DOSE VIAL ONE (09:53)
[2020-03-13] MEDS ORDERED: LIDOCAINE HCL 1%, 10 MG/ML (20ML VIAL) ONE (10:04)
[2020-03-13] MEDS ORDERED: HYDROmorphone HCl 2 MG/ML VIAL ONE (10:53)
[2020-03-13] MEDS ORDERED: BACITRACIN 50,000 UNITS VIAL TP ONE (10:58)
[2020-03-13] MEDS ORDERED: BACITRACIN 15 GM TUBE TOPICAL OINTMENT ONE (11:01)
[2020-03-13] MEDS ORDERED: SODIUM CHLORIDE 1,000 ML IV SCH (11:30)
[2020-03-13] MEDS ORDERED: SODIUM CHLORIDE 250 ML IV PRN (11:36)
[2020-03-13] MEDS ORDERED: AMMONIUM LACTATE 12% LOTION 225 GM BOTTLE TP PRN (11:36)
[2020-03-13] MEDS ORDERED: CALCIUM ACETATE/AL SULFATE TOP 1.9 GM/PACKET PACKET TP PRN (11:36)
[2020-03-13] MEDS ORDERED: HYDROmorphone HCL CARPU-JECT 2 MG/1 ML DISP.SYRIN IVPB PRN (11:36)
[2020-03-13] MEDS ORDERED: ACETAMINOPHEN 1000 MG/100 ML VIAL (NON FORMULARY) IVPB PRN (11:36)
[2020-03-13] MEDS ORDERED: POTASSIUM PHOSPHATE 30 MM in SODIUM CHLORIDE 500 ML IVPB ONE (11:36)
[2020-03-13] MEDS ORDERED: HYDROmorphone HCl 2 MG/ML VIAL IVPB PRN (11:46)
[2020-03-13] MEDS ORDERED: ONDANSETRON 4 MG/2 ML VIAL IVPUSH PRN (11:50)
[2020-03-13] MEDS: POTASSIUM PHOSPHATE 30 MM in SODIUM CHLORIDE 500 ML IVPB ONE ×2 (13:08→13:33)
[2020-03-13] MEDS ORDERED: HEPARIN NA (PORCINE) 5,000 UNITS/ML 1ML VIAL SQ SCH (14:00)
[2020-03-13] MEDS ORDERED: NALOXONE HCL 0.4 MG/ML VIAL IVPUSH ONE (17:41)
[2020-03-13] MEDS ORDERED: ASPIRIN SUPPOSITORY 600 MG SUPP.RECT PR ONE (19:00)
[2020-03-13] MEDS ORDERED: DOPAMINE 400 MG/D5W - 400,000 MCG/250 ML INFUS.BAG IVPB ONE (19:10)
[2020-03-13] MEDS ORDERED: VANCOMYCIN HCL 1,250 MG in DEXTROSE 5%-WATER - 1,250 MG/250 ML IVPB IVPB ONE (19:30)
[2020-03-13] MEDS ORDERED: HEPARIN NA (PORCINE) 5,000 UNITS/ML 1ML VIAL IVPUSH PRN ×3 (19:43→19:44)
[2020-03-13] MEDS ORDERED: HEPARIN SOD,PORK IN 0.45% NACL 25,000 UNITS/500 ML INFUS.BAG IVPB SCH (19:45)
[2020-03-13] MEDS ORDERED: NOREPINEPHRINE D5W PREMIX 16,000 MCG/500 ML BAG IVPB SCH (19:45)
[2020-03-13] MEDS ORDERED: FENTANYL NS IVPB 500 MCG/100 ML BAG IVPB ONE (19:55)
[2020-03-13] MEDS ORDERED: MIDAZOLAM 100 MG/100 ML MG IVPB SCH (20:00)
[2020-03-13] MEDS ORDERED: FENTANYL IVPB 500 MCG/100 ML BAG IVPB SCH (20:00)
[2020-03-13 20:38] LABS: HEMATOCRIT 30.5 % (35.4-49); HEMOGLOBIN 9.3 GM/dL (11.7-16.9); MCH 32.5 pg (25.7-33.7); MCHC 30.4 g/dl (32.0-35.9); MEAN PLT VOLUME 11.7 fl (7.5-11.1); PLATELET COUNT 193 K/MM3 (134-434); RBC 2.85 M/mm3 (4.00-5.60); RDW 16.2 % (11.9-15.9); WHITE BLOOD COUNT 29.2 K/mm3 (4.0-10.0)
[2020-03-13] MEDS ORDERED: MIDAZOLAM 100 MG/100 ML MG IVPB ONE (20:38)
[2020-03-13] MEDS ORDERED: DOPAMINE 400 MG/D5W - 400,000 MCG/250 ML INFUS.BAG IVPB SCH (21:00)
[2020-03-13] MEDS ORDERED: MILRINONE 20MG/100ML IVPB - 20,000 MCG/100 ML ML IVPB ONE (21:51)
[2020-03-13] MEDS ORDERED: DEXTROSE 50%-WATER - 25 GM/50 ML VIAL IVPUSH ONE ×3 (21:55→22:09)
[2020-03-13] MEDS ORDERED: DEXTROSE 50%-WATER 25 GM/50 ML DISP.SYRIN ONE (21:56)
[2020-03-13] MEDS ORDERED: MELATONIN 5 MG TABLETS PO PRN (22:00)
[2020-03-13] MEDS ORDERED: MILRINONE 20MG/100ML IVPB - 20,000 MCG/100 ML ML IVPB SCH (22:00)
[2020-03-13] MEDS ORDERED: NITROPRUSSIDE SODIUM 25 MG/1 ML ML IVPB ONE (22:00)
[2020-03-13] MEDS ORDERED: NITROPRUSSIDE SODIUM 50,000 MCG in DEXTROSE 5%-WATER - 248 ML IVPB SCH (22:00)
[2020-03-13 22:11] LABS: BLOOD UREA NITROGEN 27.4 mg/dL (7-18); CALCIUM 7.3 mg/dL (8.5-10.1)
[2020-03-13 22:15] LABS: CREATININE 5.5 mg/dL (0.55-1.3)
[2020-03-13 22:16] LABS: BILIRUBIN,TOTAL 0.9 mg/dL (0.2-1); TOT PROT 6.3 g/dl (6.4-8.2)
[2020-03-13] MEDS ORDERED: CLOPIDOGREL BISULFATE 75 MG TABLET (FP) PO ONE (22:47)
[2020-03-13] MEDS ORDERED: PHENYLEPHRINE NS PREMIX 50,000 MCG/500 ML BAG CVP SCH (23:00)
[2020-03-13 23:35] LABS: ARTERIAL BLD GAS O2 SATURATION 88.1 mmHg (95-98); ARTERIAL BLOOD GAS PO2 74.4 mmHg (80-100)
[2020-03-13 23:37] LABS: ALLENS TEST POSITIVE
[2020-03-13 23:38] LABS: VENT MODE A/C; VENT RATE 16
[2020-03-13 23:39] LABS: ARTERIAL BLOOD GAS pH 7.053 (7.350-7.450)
[2020-03-14] MEDS ORDERED: DEXTROSE 5%-WATER - 50 ML IVPB ONE (02:19)
[2020-03-14] MEDS ORDERED: PIPERACILLIN/TAZOBACTAM 2.25 GM VIAL IVPB ONE (02:19)
[2020-03-14] MEDS: PIPERACILLIN/TAZOB 2.25 GM 2.25 GM in DEXTROSE 5%-WATER - 50 ML IVPB SCH (02:20)
[2020-03-14] MEDS ORDERED: LEVOTHYROXINE NA 50 MCG TABLET (FP) PO SCH (07:00)
[2020-03-14 07:05] VITALS: TEMP 97.1
[2020-03-14 07:38] LABS: BASO % 0.2 % (0-2.0); EOS % 0.1 % (0-4.5); HEMATOCRIT 31.5 % (35.4-49); LYMPH % 2.1 % (8-40); MCH 32.8 pg (25.7-33.7); MCHC 31.6 g/dl (32.0-35.9); MEAN CELL VOLUME 103.8 fl (80-96); MEAN PLT VOLUME 10.7 fl (7.5-11.1); MONO % 5.6 % (3.8-10.2); PLATELET COUNT 230 K/MM3 (134-434); RBC 3.04 M/mm3 (4.00-5.60); RDW 16.1 % (11.9-15.9)
[2020-03-14 07:42] LABS: WHITE BLOOD COUNT 42.7 K/mm3 (4.0-10.0)
[2020-03-14] MEDS ORDERED: EPINEPHrine 1:10,000 (P-F SYR) 1 MG/10 ML DISP.SYRIN ONE ×2 (08:08→08:27)
[2020-03-14 08:09] LABS: CHLORIDE 94 mmol/L (98-107); POTASSIUM 4.1 mmol/L (3.5-5.1); SODIUM 136 mmol/L (136-145)
[2020-03-14] MEDS ORDERED: EPINEPHrine 1:10,000 (P-F SYR) 1 MG/10 ML DISP.SYRIN IVPUSH ONE ×3 (08:11→08:18)
[2020-03-14 08:13] LABS: ALBUMIN 2.1 g/dl (3.4-5.0); ANION GAP 29 MMOL/L (8-16); BLOOD UREA NITROGEN 34.4 mg/dL (7-18); CALCIUM 7.5 mg/dL (8.5-10.1); CO2 13 mmol/L (21-32); GLUCOSE,RANDOM 192 mg/dL (74-106); MAGNESIUM 2.1 mg/dL (1.8-2.4)
[2020-03-14 08:16] LABS: CREATININE 5.8 mg/dL (0.55-1.3); SGPT/ALT 168 U/L (13-61)
[2020-03-14 08:17] LABS: BILIRUBIN,TOTAL 1.4 mg/dL (0.2-1); TOT PROT 6.6 g/dl (6.4-8.2)
[2020-03-14] MEDS ORDERED: SODIUM BICARBONATE 8.4% 50 MEQ/50 ML DISP.SYRIN IVPUSH ONE ×2 (08:17)
[2020-03-14 08:18] LABS: BILIRUBIN,DIRECT 0.9 mg/dL (0.0-0.2)
[2020-03-14 08:24] VITALS: PULSE 53
[2020-03-14] MEDS ORDERED: SODIUM BICARBONATE 8.4% - 50 ML ONE (08:27)
[2020-03-14 09:01] LABS: ALK PHOS 146 U/L (45-117); SGOT/AST 1075 U/L (15-37)
[2020-03-14 09:08] LABS: ANISOCYTOSIS 2+; MACROCYTOSIS 2+; PLATELET ESTIMATE NORMAL; TARGET CELLS 1+
[2020-03-14] MEDS ORDERED: CALCIUM CHLORIDE 1 GM/10 ML *DISP.SYRIN IVPUSH ONE (09:30)
[2020-03-14 09:38] VITALS: BP 61/40
[2020-03-14] MEDS ORDERED: metoPROLOL SUCCINATE 25 MG TAB.SR.24H (FP) PO SCH (10:00)
[2020-03-14] MEDS ORDERED: MUPIROCIN 2% TOPICAL OINTMENT FOR DECOLONIZATION NS SCH (10:00)
[2020-03-14 10:29] LABS: PHOSPHOROUS > 9.0 mg/dL (2.5-4.9)
[2020-03-14] MEDS ORDERED: CHLORHEXIDINE GLUCONATE 4% CLEANSER FOR DECOLONIZATION TP SCH (22:00)
== END 2020-03-14 08:30 | disposition expired | DRG 579 ==
LOC: JER 11:17 → JERBED 19:39 → J7W 03-06 05:05 → JICU 03-13 18:31
PROVIDERS: ADMIT Hospitalist; ATTEND Internal Medicine Pulmonary Disease
PROC: 5A1D70Z Performance of Urinary Filtration, Intermittent, Less than 6 Hours Per Day (ICD-10-PCS; 2020-03-08)
PROC: 5A1D70Z Performance of Urinary Filtration, Intermittent, Less than 6 Hours Per Day (ICD-10-PCS; 2020-03-10)
PROC: 5A1D70Z Performance of Urinary Filtration, Intermittent, Less than 6 Hours Per Day (ICD-10-PCS; 2020-03-12)
PROC: 06HN33Z Insertion of Infusion Device into Left Femoral Vein, Percutaneous Approach (ICD-10-PCS; 2020-03-13)
PROC: 0BH17EZ Insertion of Endotracheal Airway into Trachea, Via Natural or Artificial Opening (ICD-10-PCS; 2020-03-13)
PROC: 5A1935Z Respiratory Ventilation, Less than 24 Consecutive Hours (ICD-10-PCS; 2020-03-13)
PROC: 0KBS0ZZ Excision of Right Lower Leg Muscle, Open Approach (ICD-10-PCS; principal; 2020-03-13 09:32)
PROC: 5A12012 Performance of Cardiac Output, Single, Manual (ICD-10-PCS; 2020-03-14)
DX: L03.115 Cellulitis of right lower limb (principal); N18.6 End stage renal disease; I21.09 ST elevation (STEMI) myocardial infarction involving other coronary artery of anterior wall; I13.2 Hypertensive heart and chronic kidney disease with heart failure and with stage 5 chronic kidney disease, or end stage renal disease; I50.42 Chronic combined systolic (congestive) and diastolic (congestive) heart failure; L97.20 Non-pressure chronic ulcer of unspecified calf; I96 Gangrene, not elsewhere classified; I25.10 Atherosclerotic heart disease of native coronary artery without angina pectoris; I48.91 Unspecified atrial fibrillation; E78.5 Hyperlipidemia, unspecified; K40.90 Unilateral inguinal hernia, without obstruction or gangrene, not specified as recurrent; N25.0 Renal osteodystrophy; D63.1 Anemia in chronic kidney disease; I46.9 Cardiac arrest, cause unspecified; M10.9 Gout, unspecified; I25.2 Old myocardial infarction; Z86.73 Personal history of transient ischemic attack (TIA), and cerebral infarction without residual deficits; Z99.2 Dependence on renal dialysis; Z91.14 Patient's other noncompliance with medication regimen
CPT/HCPCS: 36415; 36600; 71045-TC-FY; 73590-TC-RT-FY; 73700-TC-RT; 80053; 82248; 82550; 82553; 82607; 82746; 82803; 82962; 83605; 83735; 84100; 84439; 84443; 84481; 84484; 85025; 85027; 85610; 85651; 85730; 86140; 86704; 86706; 86707; 86708; 86709; 86803; 86922; 87040; 87070; 87186; 87205; 87340; 87389; 87536; 88304-TC; 93005; 93010; 93971-TC; 94002; 94760; 99285-25; C9803; G0480; J0131; J1644; Q5106; U0003